=== PATIENT | female | born 1960 | race Caucasian/White ===

== ENCOUNTER → 2021-02-03 | Outpatient (CLI) | payer OTHER ==
--- NOTE | 2021-02-03 11:01 | XR ---
EXAMINATION TYPE: XR chest 2V DATE OF EXAM: 02/03/2021 COMPARISON: NONE HISTORY: Shortness of breath TECHNIQUE: Frontal and lateral views of the chest are obtained. FINDINGS: Scattered senescent parenchymal changes noted. Hyperinflation compatible with COPD. No evidence for infiltrate. Discoid atelectasis at the right lung base. The lungs are otherwise clear . Heart size is stable. Mediastinal structures are stable and grossly unremarkable. No evidence for hilar prominence. Degenerative changes dorsal spine. IMPRESSION: 1. Discoid atelectasis at the right lung base.
[2021-02-03 11:36] LABS: Basophils % (A) 1 %; Eosinophils # (A) 0.1 k/uL (0-0.7); Eosinophils % (A) 1 %; HCT 37.8 % (34.0-46.0); HGB 11.9 gm/dL (11.4-16.0); Hypochromasia Slight; Lymphocytes # (A) 1.4 k/uL (1.0-4.8); Lymphocytes % (A) 32 %; MCH 34.3 pg (25.0-35.0); MCHC 31.5 g/dL (31.0-37.0); MCV 108.9 fL (80.0-100.0); Macrocytosis Marked; Mean Platelet Volume 7.3; Monocytes # (A) 0.3 k/uL (0-1.0); Monocytes % (A) 8 %; Neutrophils # (A) 2.4 k/uL (1.3-7.7); Neutrophils % (A) 56 %; Platelet Count 386 k/uL (150-450); RBC 3.48 m/uL (3.80-5.40); WBC 4.3 k/uL (3.8-10.6)
[2021-02-03 11:39] LABS: Calcium 9.7 mg/dL (8.4-10.2); Potassium 4.6 mmol/L (3.5-5.1)
== END | disposition home or self-care (01) ==
LOC: LABPAT 10:04
PROVIDERS: ATTEND Orthopaedic Surgery Hand Surgery
DX: Z01.818 Encounter for other preprocedural examination (principal); I45.6 Pre-excitation syndrome; J98.11 Atelectasis; R94.31 Abnormal electrocardiogram [ECG] [EKG]
CPT/HCPCS: 36415; 71046; 80048; 85025; 93005

== ENCOUNTER 2021-02-05 05:52 | Day surgery (SDC) | payer OTHER ==
--- NOTE | 2021-02-04 08:31 | P.HPOR ---
History of Present Illness H&P Date: 02/04/21 Chief Complaint: Left intra-articular distal radius fracture Subjective: This is a 60 year old female that presents today for initial evaluation regarding a left injury that occurred on 01/18/21. She states she tripped over a piece of molding in her house and fell onto an outstretched hand. She was seen at [facility] 3 days after her injury due to continue wrist pain and was placed in a splint. 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 She has a history of rheumatoid arthritis and is actively taking sulfasalazine, cyclobenzapine, and gabapentin. Physical Examination: LUE: AIN/PIN/Radial/Ulnar/Median motor intact. Radial/Ulnar/Median SILT. 2+/4 Radial/Ulnar pulses palpated. 5/5 APB, 5/5 FDI. Negative Finkelsteins, negative CMC grind, negative Durkan's compression. TTP over distal radius with swelling and slight visual deformity of wrist. EPL intact. Imaging: X-Rays of the left wrist demonstrate an intra-articular distal radius fracture with comminution, 25 degrees of dorsal angulation and radial shortening present. Nondisplaced ulnar styloid fracture present. Impression: 1.) Left intra-articular distal radius fracture, displaced. 2.) Left non displaced ulnar styloid fracture. Plan: Diagnosis and treatment options were discussed with the patient. Due to the amount of displacement, patients age and activity demands I recommend surgical intervention with ORIF. She was agreeable with this plan of action. Risks and benefits of surgery including bleeding, infection, damage to surrounding tissue, need for further surgery were discussed and the patient wished to go forward with surgery. She will obtain pre-op clearance prior to surgery and surgery will be scheduled in the near future -Andres Labm DO Orthopedic Hand/Upper Extremity Surgeon Physical Examination Osteopathic Statement: *. No significant issues noted on an osteopathic structural exam other than those noted in the History and Physical/Consult.
[2021-02-04 11:24] VITALS: BMI 19.8
[2021-02-05] MEDS ORDERED: LIDOCAINE 1% (10MG/ML) FOR IV START INTRADERMA PRN (06:00)
[2021-02-05] MEDS ORDERED: MIDAZOLAM 2 MG/2 ML VIAL IV PRN (06:00)
[2021-02-05] MEDS ORDERED: LACTATED RINGERS 1,000 ML IV SCH (06:00)
[2021-02-05] MEDS ORDERED: DEXAMETHASONE SOD PHOSPHATE 4 MG/ML 1 ML VIAL IV ONE (06:00)
[2021-02-05] MEDS ORDERED: MIDAZOLAM 2 MG/2 ML VIAL IV ONE (06:49)
[2021-02-05] MEDS ORDERED: HYDROmorphone 0.5 MG/0.5 ML SYRINGE IVP PRN (07:00)
[2021-02-05] MEDS ORDERED: ONDANSETRON 4 MG/2 ML VIAL IVP PRN (07:00)
[2021-02-05] MEDS ORDERED: fentaNYL (PF) 50 MCG/ML 2 ML AMP ONE (07:21)
[2021-02-05] MEDS ORDERED: LIDOCAINE 1% INJ 10MG/ML (20 ML MDV) ONE (07:21)
[2021-02-05] MEDS ORDERED: PROPOFOL 10 MG/ML 20 ML VIAL IV ONE (07:21)
[2021-02-05] MEDS ORDERED: ROPIVACAINE 5 MG/ML 30 ML VIAL ONE (07:21)
--- NOTE | 2021-02-05 08:55 | P.ANPRN ---
Procedure Note - Anesthesia - Nerve Block Performed Left Supraclavicular Single Time Out Performed: Yes ([id number]) Date of Procedure: 02/05/21 Procedure Start Time: 06:50 Procedure Stop Time: 06:55 Location of Patient: PreOp Indication: Acute Post-Operative Pain, Analgesia, Dx/Pain Location, Requested by Surgeon Sedation Type: Sedate with meaningful contact maintained Preparation: Sterile Prep, Sterile Dressing Position: Sitting Catheter: None Needle Types: Pajunk Needle Gauge: 21 Ultrasound used to visualize needle placement: Yes Ultrasound used to observe medication spread: Yes Injectate: 0.5% Ropivacaine (see comment for volume) (20ml) Blood Aspirated: No Pain Paresthesia on Injection Noted: No Resistance on Injection: Normal Image Stored and Saved: Yes Events: Uneventful and Well Tolerated
[2021-02-05] MEDS ORDERED: LACTATED RINGERS 1,000 ML IV ONE (09:01)
[2021-02-05 09:31] VITALS: TEMP 97
[2021-02-05 09:33] VITALS: RESP 16
[2021-02-05 10:24] VITALS: BP 143/87; PULSE 88
--- NOTE | 2021-02-05 19:23 | P.OP ---
Date of Procedure: 02/05/21 Preoperative Diagnosis: Left intra-articular distal radius fracture. Postoperative Diagnosis: Left intra-articular distal radius fracture Procedure(s) Performed: Open reduction internal fixation of left intra-articular distal radius fracture, 3 parts. Anesthesia: JOSE DUMONT, regional Surgeon: Andres Lamb Fluid Designer #1: Eric Bauer Estimated Blood Loss (ml): 10 Pathology: none sent Condition: stable Disposition: PACU Operative Findings: This is a 60 year old female who sustained a displaced intra-articular distal radius fracture and presents today for open reduction internal fixation of their left distal radius fracture . Risks and benefits of surgery were discussed with the patient including bleeding, damage to surrounding tissue, infection, need for further surgery as well as risks of anesthesia including pulmonary embolism and even and the patient wished to proceed with surgical intervention. The patients was seen in the pre-operative area by myself. Consent and H&P were completed and updated. The correct extremity was marked in the pre-operative area by myself and all other questions were answered. Operative Narrative: The patient was brought to the operating room by the department of anesthesia. They remained on the portable stretcher and a rolling hand table was brought to the side of the operative extremity. Pre-operative time out was performed indicating the correct patient, procedure and laterality. All in the room agreed. Pre-operative antibiotics were given prior to skin incision. The patient was then drifted off to sleep by the department of anesthesia. A nonsterile tourniquet was then applied to the operative extremity and the left upper extremity was then prepped and draped in normal sterile fashion. The operative extremity was the exsanguinated with an esmarch bandage and the tourniquet was inflated to 250mmHg. A longitudinal incision centered over the FCR tendon was made with a 15-blade scalpel. Blunt dissection was taken down to the FCR tendon sheath using Bovie cautery for meticulous hemostasis. The FCR sheath was opened with tenotomy scissors. The floor of the FCR sheath was then incised with a 15-blade scalpel and the FPL tendon and muscle belly was swept bluntly in an ulnar direction to reveal the pronator quadratus. Pronator quadratus was sharply incised with a 15-blade scalpel along the radial border of the distal radius, coming across transversely parallel to the joint at the level of the watershed line, radial artery was identified and protected. Periosteal elevator was then used to elevate the pronator quadratus off the distal radius from a radial to ulnar fashion. A [place] elevator was used to lever the distal piece back into place and free up the fractured fragments. A narrow width Johnny/biomet crosslock DVR plate was chosen to fit the patients anatomy best. This was placed on the distal radius under direct visualization and the K- wire was placed in the shaft k-wire hole. The fracture was then reduced to the plate distally and a k-wire was placed in the ulnar most k-wire hole in the proximal row. Fluoroscopy was then utilized to confirm correct placement of plate in the radial/ulnar plane and distal k-wire placement was confirmed to be proximal to the subchondral bone on 20 degree elevated lateral view confirming extra-articular screw placement. Anabaptist of radial height, inclination and volar tilt was achieved. The oblong hole was drilled and filled with a cortical screw. The proximal row and radial styloid screw hole was then drilled and filled from ulnar to radial with locking screws. Distal row was then drilled and filled with locking smooth pegs. Attention was then brought to the proximal shaft screws. Proximal crosslocking shaft screws were drilled with a nonlocking screws. The wrist joint was the ran ged and full smooth flexion/extension with no crepitus appreciated. Final imaging was taken confirming extra-articular placement of distal screws at DRUJ and radiocarpal joint. The wound was then irrigated. Subcutaneous closure was performed with 4-0 vicryl followed by skin closure with 4-0 nylon suture. Sterile dressing consisting of adaptic,, 4x4s, and a volar plaster splint was applied. Tourniquet was let down and the hand had immediate perfusion. The patient was then woken by the department of anesthesia and transferred to PACU in stable condition. The patient was then woken by the department of anesthesia and transferred to PACU in stable condition. Andres Lamb D.O. Orthopedic Hand/Upper Extremity Surgeon
== END 2021-02-05 10:42 | disposition home or self-care (01) ==
LOC: OR 05:52
PROVIDERS: ATTEND Orthopaedic Surgery Hand Surgery
DX: S52.572A Other intraarticular fracture of lower end of left radius, initial encounter for closed fracture (principal); W01.10XA Fall on same level from slipping, tripping and stumbling with subsequent striking against unspecified object, initial encounter; F17.210 Nicotine dependence, cigarettes, uncomplicated; M06.9 Rheumatoid arthritis, unspecified; K74.60 Unspecified cirrhosis of liver; Z96.652 Presence of left artificial knee joint; Z98.890 Other specified postprocedural states; Z79.899 Other long term (current) drug therapy
CPT/HCPCS: 25608; J2250; J1100; J2405; J0690; J2001; J3010; J2795; J2704

== ENCOUNTER 2024-03-03 01:15 | Inpatient (IN) | payer OTHER ==
[2024-03-03] MEDS: NOREPINEPHRINE 4 MG in SODIUM CHLORIDE 0.9% 250 ML IV ONE (01:15)
[2024-03-03] MEDS: SODIUM BICARB 8.4% 50 ML SYR (1 MEQ/ML) IV STA ×2 (01:17)
--- NOTE | 2024-03-03 01:28 | ED ---
General Adult HPI - General Chief complaint: Cardiac Arrest/CPR Stated complaint: Cardiac Arrest Time Seen by Provider: 03/03/24 01:15 Source: EMS Mode of arrival: EMS - History of Present Illness Initial comments: 63-year-old female with reported medical history of alcohol abuse who presents to the emergency department as a cardiac arrest. EMS states that they were called to scene with an unresponsive female. They arrived and found police performing CPR. The patient had been down for approximately 20 minutes. Unknown how long the patient was down before compressions were started. Paramedics took over. Original rhythm was PEA. They administered 1 epinephrine and intubated the patient with a 7 Tamazight ET tube. They did have ROSC. Estimated total downtime is 25 minutes. Patient did receive 2 push doses of epi by EMS. No family on scene to provide any history. Sibling listed on chart was contacted and states the patient is an alcoholic - Related Data Home Medications Medication Instructions Recorded Confirmed Acetaminophen [Tylenol Arthritis] 650 mg PO DAILY 02/04/21 02/05/21 Aspirin/Caffeine [Anacin 400-32 mg 1 - 8 each PO DAILY PRN 02/04/21 02/05/21 Tablet] Calcium/Magnesium/Zinc 1 each PO DAILY 02/04/21 02/05/21 [Iajvaqq-Bgbrfpuyj-Lqxt Tablet] Cholecalciferol [Vitamin D3 (25 25 mcg PO DAILY 02/04/21 02/05/21 Mcg = 1000 Iu)] Cyanocobalamin (Vitamin B-12) 1,000 mcg PO DAILY 02/04/21 02/05/21 [Vitamin B-12] Cyclobenzaprine [Flexeril] 10 mg PO DAILY 02/04/21 02/05/21 Furosemide [Lasix] 20 mg PO DAILY 02/04/21 02/05/21 Gabapentin [Neurontin] 300 mg PO TID 02/04/21 02/05/21 Lactobacillus Acidophilus 2 each PO DAILY 02/04/21 02/05/21 [Acidophilus Probiotic] Multivit-Min/Iron/Folic/Lutein 1 each PO DAILY 02/04/21 02/05/21 [Centrum Silver Women Tablet] Potassium Gluconate [Potassium 99 mg PO DAILY 02/04/21 02/05/21 Gluconate ER] sulfaSALAzine [Azulfidine] 500 mg PO BID 02/04/21 02/05/21 Previous Rx's Medication Instructions Recorded HYDROcodone/APAP 5-325MG [[place] 2 tab PO Q6HR PRN 3 Days #24 tab 02/05/21 5-325] Allergies Allergy/AdvReac Type Severity Reaction Status Date / Time No Known Allergies Allergy Verified 03/03/24 01:21 Review of Systems ROS Statement: Those systems with pertinent positive or pertinent negative responses have been documented in the HPI. ROS Other: All systems not noted in ROS Statement are negative. Past Medical History Additional Past Medical History / Comment(s): UTO Additional Past Surgical History / Comment(s): UTO General Exam Limitations: altered mental status General appearance: obtunded Head exam: Present: atraumatic, normocephalic, normal inspection Eye exam: Present: other (8 ) Course Vital Signs 03/03/24 03/03/24 03/03/24 01:17 01:24 01:30 Temperature Pulse Rate 91 89 87 Pulse Rate [ Commissary Officer ] Respiratory 20 22 22 Rate Blood Pressure 61/40 59/39 67/41 Blood Pressure [Left Arm] O2 Sat by Pulse 100 100 100 Oximetry Fraction of Inspired Oxygen (FIO2) 03/03/24 03/03/24 03/03/24 01:32 01:35 01:40 Temperature Pulse Rate 96 93 Pulse Rate [ Commissary Officer ] Respiratory 22 22 Rate Blood Pressure 103/61 96/59 Blood Pressure [Left Arm] O2 Sat by Pulse 100 100 Oximetry Fraction of 100 Inspired Oxygen (FIO2) 03/03/24 03/03/24 03/03/24 01:45 01:50 01:55 Temperature Pulse Rate 91 89 87 Pulse Rate [ Commissary Officer ] Respiratory 22 22 22 Rate Blood Pressure 97/61 99/63 103/64 Blood Pressure [Left Arm] O2 Sat by Pulse 100 100 100 Oximetry Fraction of Inspired Oxygen (FIO2) 03/03/24 03/03/24 03/03/24 02:00 02:05 02:10 Temperature 97.2 F L Pulse Rate 91 83 Pulse Rate [ Commissary Officer ] Respiratory 22 22 Rate Blood Pressure 102/67 108/70 Blood Pressure [Left Arm] O2 Sat by Pulse 100 100 Oximetry Fraction of 50 Inspired Oxygen (FIO2) 03/03/24 03/03/24 03/03/24 02:15 02:25 02:30 Temperature Pulse Rate 82 80 77 Pulse Rate [ Commissary Officer ] Respiratory 22 22 22 Rate Blood Pressure 116/73 117/75 106/64 Blood Pressure [Left Arm] O2 Sat by Pulse 100 100 100 Oximetry Fraction of Inspired Oxygen (FIO2) 03/03/24 03/03/24 03/03/24 02:45 02:50 02:55 Temperature Pulse Rate 78 80 79 Pulse Rate [ Commissary Officer ] Respiratory 22 22 22 Rate Blood Pressure 130/76 129/80 135/80 Blood Pressure [Left Arm] O2 Sat by Pulse 100 100 100 Oximetry Fraction of Inspired Oxygen (FIO2) 03/03/24 03/03/24 03/03/24 03:10 03:37 03:51 Temperature Pulse Rate 81 81 Pulse Rate [ Commissary Officer ] Respiratory 20 22 20 Rate Blood Pressure 139/83 153/85 Blood Pressure [Left Arm] O2 Sat by Pulse 100 100 Oximetry Fraction of Inspired Oxygen (FIO2) 03/03/24 03:52 Temperature 89 F L Pulse Rate Pulse Rate [ 81 Commissary Officer ] Respiratory 22 Rate Blood Pressure Blood Pressure 135/81 [Left Arm] O2 Sat by Pulse 100 Oximetry Fraction of 50 Inspired Oxygen (FIO2) Procedures - ABG Interpretation Ph: 7.0 PCO2: 40 PO2: 488 Bicarbonate: 11 - Central Line Placement Right IJ Consent Obtained: emergent situation Medical Decision Making - Medical Decision Making Was pt. sent in by a medical professional or institution (, PA, BOTTOM SPRAYER, urgent care, hospital, or custodial...) When possible be specific @ -[No] Did you speak to anyone other than the patient for history (EMS, parent, family, police, friend...)? What history was obtained from this source @ -[No] Did you review nursing and triage notes (agree or disagree)? Why? @ -[I reviewed and agree with nursing and triage notes] Were old charts reviewed (outside hosp., previous admission, EMS record, old EKG, old radiological studies, urgent care reports/EKG's, custodial records)? Report findings @ -[No old charts were reviewed] Differential Diagnosis (chest pain, altered mental status, abdominal pain women, abdominal pain men, vaginal bleeding, weakness, fever, dyspnea, syncope, headache, dizziness, GI bleed, back pain, seizure, CVA, palpatations, mental health, musculoskeletal)? @ -[not applicable] EKG interpreted by me (3pts min.). @ -Yes and demonstrates sinus rhythm with rate of 95. MS interval 195. QRS 87. QTc of 461. No acute ST segment elevations or depressions X-rays interpreted by me (1pt min.). @ -[None done] CT interpreted by me (1pt min.). @ -[None done] U/S interpreted by me (1pt. min.). @ -[None done] What testing was considered but not performed or refused? (CT, X-rays, U/S, labs)? Why? @ -[None] What meds were considered but not given or refused? Why? @ -[None] Did you discuss the management of the patient with other professionals (professionals i.e. DrMando, PA, BOTTOM SPRAYER, lab, RT, psych nurse, outreach and education social worker, dependency director, teacher, welfare officer, casework supervisor)? Give summary @ -[No] Was smoking cessation discussed for >3mins.? @ -[No] Was critical care preformed (if so, how long)? @ -[No] Were there social determinants of health that impacted care today? How? (Homelessness, low income, unemployed, alcoholism, drug addiction, transportation, low edu. Level, literacy, decrease access to med. care, nursing home, rehab)? @ -[No] Was there de-escalation of care discussed even if they declined (Discuss DNR or withdrawal of care, Hospice)? DNR status @ -[No] What co-morbidities impacted this encounter? (DM, HTN, Smoking, COPD, CAD, Cancer, CVA, ARF, Chemo, Hep., AIDS, mental health diagnosis, sleep apnea, morbid obesity)? @ -[None] Was patient admitted / discharged? Hospital course, mention meds given and route, prescriptions, significant lab abnormalities, going to OR and other pertinent info. @ -[hospital course] Undiagnosed new problem with uncertain prognosis? @ -[No] Drug Therapy requiring intensive monitoring for toxicity (Heparin, Nitro, Insulin, Cardizem)? @ -[No] Were any procedures done? @ -[No] Diagnosis/symptom? @ -[default] Acute, or Chronic, or Acute on Chronic? @ -[default] Uncomplicated (without systemic symptoms) or Complicated (systemic symptoms)? @ -[default] Side effects of treatment? @ -[No] Exacerbation, Progression, or Severe Exacerbation? @ -[No] Poses a threat to life or bodily function? How? (Chest pain, USA, AR, pneumonia, PE, COPD, DKA, ARF, appy, cholecystitis, CVA, Diverticulitis, Homicidal, Suicidal, threat to staff... and all critical care pts) @ -[No] - Lab Data Result diagrams: 03/03/24:03/03/24: Lab Results 03/03/24 03/03/24 03/03/24 Range/Units :28 02: 01: WBC 5.5 (3.8-10.6) k/uL RBC 2.98 L (3.80-5.40) m/uL Hgb 9.8 L (11.4-16.0) gm/dL Hct 33.3 L (34.0-46.0) % MCV 111.5 H (80.0-100.0) fL MCH 32.9 (25.0-35.0) pg MCHC 29.5 L (31.0-37.0) g/dL RDW 14.0 (11.5-15.5) % Plt Count 251 (150-450) k/uL MPV 8.2 Neutrophils % 47 % Lymphocytes % 46 % Monocytes % 2 % Eosinophils % 2 % Basophils % 1 % Neutrophils # 2.6 (1.3-7.7) k/uL Lymphocytes # 2.5 (1.0-4.8) k/uL Monocytes # 0.1 (0-1.0) k/uL Eosinophils # 0.1 (0-0.7) k/uL Basophils # 0.0 (0-0.2) k/uL Hypochromasia Marked Macrocytosis Marked A PT 11.8 (10.0-12.5) sec INR 1.1 (<1.2) APTT 38.1 H (22.0-30.0) sec Sample Site ABG pH (7.35-7.45) ABG pCO2 (35-45) mmHg ABG pO2 (83-108) mmHg ABG HCO3 (21-25) mmol/L ABG Total CO2 (19-24) mmol/L ABG O2 Saturation (94-97) % ABG Base Excess mmol/L Gregg Test Hemoglobin (11.4-16.0) gm/dL FiO2 % Sodium (137-145) mmol/L Potassium (3.5-5.1) mmol/L Chloride (98-107) mmol/L Carbon Dioxide (22-30) mmol/L Anion Gap mmol/L BUN (7-17) mg/dL Creatinine (0.52-1.04) mg/dL Est GFR (CKD-EPI)AfAm (>60 ml/min/1.73 sqM) Est GFR (CKD-EPI)NonAf (>60 ml/min/1.73 sqM) Glucose (74-99) mg/dL POC Glucose (mg/dL) 177 H (70-110) mg/dL POC Glu Photo Engraver ID Espinoza Deras Lactic Ac Sepsis Rflx Plasma Lactic Acid Zane (0.7-2.0) mmol/L Calcium (8.4-10.2) mg/dL Total Bilirubin (0.2-1.3) mg/dL AST (14-36) U/L ALT (4-34) U/L Alkaline Phosphatase (38-126) U/L Troponin I (0.000-0.034) ng/mL Total Protein (6.3-8.2) g/dL Albumin (3.5-5.0) g/dL Urine Color Urine Appearance (Clear) Urine pH (5.0-8.0) Ur Specific Clayton (1.001-1.035) Urine Protein (Negative) Urine Glucose (UA) (Negative) Urine Ketones (Negative) Urine Blood (Negative) Urine Nitrite (Negative) Urine Bilirubin (Negative) Urine Urobilinogen (<2.0) mg/dL Ur Leukocyte Esterase (Negative) Urine Opiates Screen (NotDetected) Ur Oxycodone Screen (NotDetected) Urine Methadone Screen (NotDetected) Ur Barbiturates Screen (NotDetected) U Tricyclic Antidepress (NotDetected) Ur Phencyclidine Scrn (NotDetected) Ur Amphetamines Screen (NotDetected) U Methamphetamines Scrn (NotDetected) U Benzodiazepines Scrn (NotDetected) Urine Cocaine Screen (NotDetected) U Marijuana (THC) Screen (NotDetected) Serum Alcohol mg/dL 03/03/24 03/03/24 03/03/24 Range/Units 01:28 01:28 01:28 WBC (3.8-10.6) k/uL RBC (3.80-5.40) m/uL Hgb (11.4-16.0) gm/dL Hct (34.0-46.0) % MCV (80.0-100.0) fL MCH (25.0-35.0) pg MCHC (31.0-37.0) g/dL RDW (11.5-15.5) % Plt Count (150-450) k/uL MPV Neutrophils % % Lymphocytes % % Monocytes % % Eosinophils % % Basophils % % Neutrophils # (1.3-7.7) k/uL Lymphocytes # (1.0-4.8) k/uL Monocytes # (0-1.0) k/uL Eosinophils # (0-0.7) k/uL Basophils # (0-0.2) k/uL Hypochromasia Macrocytosis PT (10.0-12.5) sec INR (<1.2) APTT (22.0-30.0) sec Sample Site ABG pH (7.35-7.45) ABG pCO2 (35-45) mmHg ABG pO2 (83-108) mmHg ABG HCO3 (21-25) mmol/L ABG Total CO2 (19-24) mmol/L ABG O2 Saturation (94-97) % ABG Base Excess mmol/L Gregg Test Hemoglobin (11.4-16.0) gm/dL FiO2 % Sodium 140 (137-145) mmol/L Potassium 4.3 (3.5-5.1) mmol/L Chloride 109 H (98-107) mmol/L Carbon Dioxide 6 L* (22-30) mmol/L Anion Gap 25 mmol/L BUN 8 (7-17) mg/dL Creatinine 0.96 (0.52-1.04) mg/dL Est GFR (CKD-EPI)AfAm 73 (>60 ml/min/1.73 sqM) Est GFR (CKD-EPI)NonAf 63 (>60 ml/min/1.73 sqM) Glucose 157 H (74-99) mg/dL POC Glucose (mg/dL) (70-110) mg/dL POC Glu Photo Engraver ID Lactic Ac Sepsis Rflx Plasma Lactic Acid Zane 13.2 H* (0.7-2.0) mmol/L Calcium 8.2 L (8.4-10.2) mg/dL Total Bilirubin 0.8 (0.2-1.3) mg/dL AST 197 H (14-36) U/L ALT 48 H (4-34) U/L Alkaline Phosphatase 75 (38-126) U/L Troponin I <0.012 (0.000-0.034) ng/mL Total Protein 6.9 (6.3-8.2) g/dL Albumin 3.3 L (3.5-5.0) g/dL Urine Color Urine Appearance (Clear) Urine pH (5.0-8.0) Ur Specific [place] (1.001-1.035) Urine Protein (Negative) Urine Glucose (UA) (Negative) Urine Ketones (Negative) Urine Blood (Negative) Urine Nitrite (Negative) Urine Bilirubin (Negative) Urine Urobilinogen (<2.0) mg/dL Ur Leukocyte Esterase (Negative) Urine Opiates Screen (NotDetected) Ur Oxycodone Screen (NotDetected) Urine Methadone Screen (NotDetected) Ur Barbiturates Screen (NotDetected) U Tricyclic Antidepress (NotDetected) Ur Phencyclidine Scrn (NotDetected) Ur Amphetamines Screen (NotDetected) U Methamphetamines Scrn (NotDetected) U Benzodiazepines Scrn (NotDetected) Urine Cocaine Screen (NotDetected) U Marijuana (THC) Screen (NotDetected) Serum Alcohol 351 H* mg/dL 03/03/24 03/03/24 03/03/24 Range/Units 01:41 02:00 02:51 WBC (3.8-10.6) k/uL RBC (3.80-5.40) m/uL Hgb (11.4-16.0) gm/dL Hct (34.0-46.0) % MCV (80.0-100.0) fL MCH (25.0-35.0) pg MCHC (31.0-37.0) g/dL RDW (11.5-15.5) % Plt Count (150-450) k/uL MPV Neutrophils % % Lymphocytes % % Monocytes % % Eosinophils % % Basophils % % Neutrophils # (1.3-7.7) k/uL Lymphocytes # (1.0-4.8) k/uL Monocytes # (0-1.0) k/uL Eosinophils # (0-0.7) k/uL Basophils # (0-0.2) k/uL Hypochromasia Macrocytosis PT (10.0-12.5) sec INR (<1.2) APTT (22.0-30.0) sec Sample Site lbrac ABG pH 7.06 L* (7.35-7.45) ABG pCO2 40 (35-45) mmHg ABG pO2 >420 H (83-108) mmHg ABG HCO3 11 L (21-25) mmol/L ABG Total CO2 13 L (19-24) mmol/L ABG O2 Saturation 100.0 H (94-97) % ABG Base Excess -17.7 mmol/L Gregg Test Yes Hemoglobin 8.4 L (11.4-16.0) gm/dL FiO2 100 % Sodium (137-145) mmol/L Potassium (3.5-5.1) mmol/L Chloride (98-107) mmol/L Carbon Dioxide (22-30) mmol/L Anion Gap mmol/L BUN (7-17) mg/dL Creatinine (0.52-1.04) mg/dL Est GFR (CKD-EPI)AfAm (>60 ml/min/1.73 sqM) Est GFR (CKD-EPI)NonAf (>60 ml/min/1.73 sqM) Glucose (74-99) mg/dL POC Glucose (mg/dL) (70-110) mg/dL POC Glu Photo Engraver ID Lactic Ac Sepsis Rflx Y Plasma Lactic Acid Zane (0.7-2.0) mmol/L Calcium (8.4-10.2) mg/dL Total Bilirubin (0.2-1.3) mg/dL AST (14-36) U/L ALT (4-34) U/L Alkaline Phosphatase (38-126) U/L Troponin I (0.000-0.034) ng/mL Total Protein (6.3-8.2) g/dL Albumin (3.5-5.0) g/dL Urine Color Colorless Urine Appearance Clear (Clear) Urine pH 6.5 (5.0-8.0) Ur Specific [place] 1.004 (1.001-1.035) Urine Protein Negative (Negative) Urine Glucose (UA) Negative (Negative) Urine Ketones Negative (Negative) Urine Blood Negative (Negative) Urine Nitrite Negative (Negative) Urine Bilirubin Negative (Negative) Urine Urobilinogen <2.0 (<2.0) mg/dL Ur Leukocyte Esterase Negative (Negative) Urine Opiates Screen Not Detected (NotDetected) Ur Oxycodone Screen Not Detected (NotDetected) Urine Methadone Screen Not Detected (NotDetected) Ur Barbiturates Screen Not Detected (NotDetected) U Tricyclic Antidepress Not Detected (NotDetected) Ur Phencyclidine Scrn Not Detected (NotDetected) Ur Amphetamines Screen Not Detected (NotDetected) U Methamphetamines Scrn Not Detected (NotDetected) U Benzodiazepines Scrn Not Detected (NotDetected) Urine Cocaine Screen Not Detected (NotDetected) U Marijuana (THC) Screen Not Detected (NotDetected) Serum Alcohol mg/dL Disposition Clinical Impression: Cardiac arrest, Hypotension, Alcohol intoxication Disposition: ADMITTED IP TO THIS [facility] Condition: Critical Is patient prescribed a controlled substance at d/c from ED?: No Time of Disposition: 02:46 Decision to Admit Reason: Admit from EC Decision Date: 03/03/24 Decision Time: 02:46
[2024-03-03 01:32] LABS: Glucose,Whole Blood 177 mg/dL (70-110)
[2024-03-03] MEDS: SODIUM CHLORIDE 0.9% 1,000 ML IV ONE ×2 (01:36)
[2024-03-03 02:02] LABS: ABG Base Excess -17.7 mmol/L; ABG HCO3 11 mmol/L (21-25); ABG PCO2 40 mmHg (35-45); ABG TCO2 13 mmol/L (19-24); Allen Test Performed? Yes
--- NOTE | 2024-03-03 02:11 | XR ---
EXAM: XR Chest, 1 View CLINICAL HISTORY: ITS.REASON XR Reason: CARDIAC ARREST TECHNIQUE: Frontal view of the chest. COMPARISON: No relevant prior studies available. FINDINGS: Lungs: Unremarkable. No consolidation. Pleural space: Trace LEFT pleural effusion. No pneumothorax. Heart: Unremarkable. No cardiomegaly. Mediastinum: Unremarkable. Normal mediastinal contour. Bones/joints: Unremarkable. No acute fracture. Old fracture of the LEFT seventh rib. Tubes, lines and devices: Endotracheal tube terminates 4.7 cm above the elba. Enteric feeding tube terminates below the diaphragm. RIGHT IJ catheter terminates in the SVC. IMPRESSION: Trace LEFT pleural effusion. Endotracheal tube terminates 4.7 cm above the elba. Enteric feeding tube terminates below the diaphragm. RIGHT IJ catheter terminates in the SVC.
[2024-03-03 02:26] LABS: Basophils % (A) 1 %; Eosinophils # (A) 0.1 k/uL (0-0.7); Eosinophils % (A) 2 %; HCT 33.3 % (34.0-46.0); HGB 9.8 gm/dL (11.4-16.0); Hypochromasia Marked; Lymphocytes # (A) 2.5 k/uL (1.0-4.8); Lymphocytes % (A) 46 %; MCH 32.9 pg (25.0-35.0); MCHC 29.5 g/dL (31.0-37.0); MCV 111.5 fL (80.0-100.0); Macrocytosis Marked; Mean Platelet Volume 8.2; Monocytes # (A) 0.1 k/uL (0-1.0); Monocytes % (A) 2 %; Neutrophils # (A) 2.6 k/uL (1.3-7.7); Neutrophils % (A) 47 %; Platelet Count 251 k/uL (150-450); RBC 2.98 m/uL (3.80-5.40); WBC 5.5 k/uL (3.8-10.6)
[2024-03-03 02:27] LABS: ABG PH 7.06 (7.35-7.45); ABG PO2 >420 mmHg (83-108)
[2024-03-03 02:40] LABS: ALT 48 U/L (4-34); African American GFR (CKD) 73 (>60 ml/min/1.73 sqM); Anion Gap 25 mmol/L; Blood Urea Nitrogen 8 mg/dL (7-17); Calcium 8.2 mg/dL (8.4-10.2); Chloride 109 mmol/L (98-107); Glucose 157 mg/dL (74-99); Non-African American GFR(CKD) 63 (>60 ml/min/1.73 sqM); Sodium 140 mmol/L (137-145); Total Bilirubin 0.8 mg/dL (0.2-1.3)
--- NOTE | 2024-03-03 02:47 | XR ---
EXAM: XR Chest, 1 View CLINICAL HISTORY: ITS.REASON XR Reason: placement of central line TECHNIQUE: Frontal view of the chest. COMPARISON: No relevant prior studies available. FINDINGS: Lungs: Unremarkable. No consolidation. Pleural space: Small LEFT pleural effusion. No pneumothorax. Heart: Unremarkable. No cardiomegaly. Mediastinum: Unremarkable. Normal mediastinal contour. Bones/joints: Old fracture of the posterior LEFT seventh rib. Tubes, lines and devices: Feeding tube terminates in the stomach. RIGHT IJ catheter terminates in the SVC. No tracheal tube terminates 4.7 cm above the elba. IMPRESSION: Small LEFT pleural effusion. Tubes and lines, as above.
[2024-03-03 02:48] LABS: Appearance,Urine Clear (Clear); Bilirubin,Urine Negative (Negative); Blood,Urine Negative (Negative); Color,Urine Colorless; Glucose,Urine (UA) Negative (Negative); Ketones,Urine Negative (Negative); Leukocyte Esterase,Urine Negative (Negative); Nitrite,Urine Negative (Negative); PH, Urine 6.5 (5.0-8.0); Protein,Urine Negative (Negative); Specific Gravity,Urine 1.004 (1.001-1.035); Urobilinogen,Urine <2.0 mg/dL (<2.0)
[2024-03-03 02:50] LABS: Carbon Dioxide 6 mmol/L (22-30)
[2024-03-03 02:51] LABS: AST 197 U/L (14-36); Albumin 3.3 g/dL (3.5-5.0); Alkaline Phosphatase 75 U/L (38-126); Potassium 4.3 mmol/L (3.5-5.1); Total Protein 6.9 g/dL (6.3-8.2)
[2024-03-03 02:52] LABS: Alcohol 351 mg/dL
[2024-03-03] MEDS ORDERED: NALOXONE 0.4 MG/ML 1 ML VIAL IV PRN (02:59)
[2024-03-03 03:04] LABS: Amphetamine Screen,Urine Not Detected (NotDetected); Barbiturate Screen,Urine Not Detected (NotDetected); Benzodiazepines Screen,Urine Not Detected (NotDetected); Cocaine Screen,Urine Not Detected (NotDetected); Methadone Screen, Urine Not Detected (NotDetected); Opiate Screen,Urine Not Detected (NotDetected); Oxycodone Screen, Urine Not Detected (NotDetected); Phencyclidine Screen,Urine Not Detected (NotDetected); Tricyclic Antidepressant,Urine Not Detected (NotDetected); Urn Cannabinoid Scrn Not Detected (NotDetected)
[2024-03-03 03:08] LABS: INR 1.1 (<1.2); Partial Thromboplastin Time 38.1 sec (22.0-30.0); Prothrombin Time 11.8 sec (10.0-12.5)
--- NOTE | 2024-03-03 03:17 | CT ---
EXAM: CT Head Without Intravenous Contrast CLINICAL HISTORY: Altered mental status TECHNIQUE: Axial computed tomography images of the head/brain without intravenous contrast. CTDI is 49.2 mGy and DLP is 1096.4 mGy-cm. This CT exam was performed using one or more of the following dose reduction techniques: automated exposure control, adjustment of the mA and/or kV according to patient size, and/or use of iterative reconstruction technique. Coronal and sagittal reformatted images were created and reviewed. 327 images COMPARISON: No relevant prior studies available. FINDINGS: Brain: Age-related generalized brain volume loss and chronic small vessel ischemic changes. Small encephalomalacia of left parietal lobe and bilateral occipital lobes. No hemorrhage. Ventricles: Unremarkable. No ventriculomegaly. Bones/joints: No acute findings. Soft tissues: Unremarkable. Sinuses: Unremarkable as visualized. No acute sinusitis. Mastoid air cells: Unremarkable as visualized. No mastoid effusion. Tubes, lines and devices: Supporting tubes are noted. IMPRESSION: No acute intracranial findings. If acute intracranial infarct is of concern, MRI may help to further evaluate if patient is a candidate.
[2024-03-03 03:53] LABS: Glucose,Whole Blood 118 mg/dL (70-110)
[2024-03-03] MEDS: DEXTROSE 5% IN WATER 1,000 ML with SODIUM BICARB (1 MEQ/ML) 150 ML IV SCH (04:46)
--- NOTE | 2024-03-03 04:56 | P.HPIM ---
History of Present Illness H&P Date: 03/03/24 Patient is a 63-year-old female apparently with alcohol abuse and polysubstance abuse is brought to the emergency department via EMS for cardiac arrest. Patient is mechanically ventilated so history is obtained from the ER note as well as by talking to Dr. Munoz. Apparently patient lives in an apartment with 2 people who called police after she was unresponsive for about 20 minutes before the EMS arrived. Patient was found to be in PEA and was given 1 dose of epinephrine and was intubated. They were able to achieve ROSC. Patient received an additional 2 doses of epinephrine while in transit to ED. Patient is currently mechanically ventilated on control assist with settings of respiratory rate of 20, tidal volume 400, FiO2 50 and PEEP of 5. Patient is currently on propofol drip and vasopressors. Initial laboratory evaluation WBC 5.5, hemoglobin 9.8, hematocrit 33.3, MCV 111.5, platelet count 251, PT 11.8, INR 1.1, APTT 38.1,. Blood gas show pH of 7.06, pCO2 40, HCO3 11,. Sodium 140, potassium 4.3, chloride 109, bicarb 6, anion gap 25, BUN 18, creatinine 0.96, EGFR 63, glucose 157, lactic acid 13.2, calcium 8.2, AST 197, ALT 48, albumin 3.3, troponin less than 0.012. Vitals on arrival with a heart rate of 91, respiratory rate 20, blood pressure 61/40, oxygen 100% saturation with mechanical isolation. Urinalysis negative. Urine toxicology is negative Serum alcohol 351 Chest x-ray done in ED interpreted independently shows small left pleural effusion Brain CT done in the ED shows no acute intracranial defects or mass. EKG done in the ED interpreted apparently shows sinus rhythm with occasional ectopic premature complexes Review of systems: Unable to assess Social history: Unable to assess Family History: Unable to assess Physical examination: Vital signs reviewed Gen: Mechanically ventilated on assist control settings HEENT: N/C and A/T, mucous membranes moist, patient has a endotracheal tube. Right IJ line in place. Dilated pupil. CVS: perfusing all extremities well, no pitting edema, Respiratory: Unable to assess patient on mechanical ventilation and has endotracheal tube GI: soft, NTTP, ND, BS+ : no suprapubic tenderness, no CVA tenderness MSK/Derm: no rashes, cyanosis Neuro: Unable to assess Psych: Unable to assess at this time Assessment/Plan: This is a 63-year-old female with a history of alcohol abuse and polysubstance abuse who is brought to the ER for cardiac arrest. Case was discussed with the Emergency Room provider and decision was made to admit the patient for cardiac arrest outside the hospital #Cardiac arrest outside hospital #Alcohol intoxication #Suspected history of polysubstance use Patient is currently intubated and mechanically supported on control assist with settings of respiratory rate of 20, tidal volume 400, FiO2 50 and PEEP of 5. Patient is currently on propofol drip and maintained on vasopressors. Maintain a MAP of more than equal to 65 Continue to wean off on vasopressors Chest x-ray done in ED interpreted independently shows small left pleural effusion Brain CT done in the ER shows no acute intracranial defects or mass. EKG done in the ER interpreted apparently shows sinus rhythm with occasional ectopic premature complexes Urine toxicology is negative Serum alcohol 351 Initiate transfer to the ICU Continue monitor vital signs Strict I's and O's Order TSH, vitamin B12 Order IV thiamine 100 mg IVP daily CBC in a.m. Neurochecks and seizure precautions #High anion gap metabolic acidosis secondary to lactic acidosis and alcohol ketoacidosis Blood gas show pH of 7.06, pCO2 40, HCO3 11 Sodium 140, potassium 4.3, chloride 109, bicarb 6, anion gap 25 Lactic acid 13.2 Patient is status post 2 sodium bicarb infusions in the ED Continue with bicarb drip running at 75 cc/h Repeat ABG in a.m. Recheck lactic acid in a.m. #Hyperglycemia Accu-Cheks and sliding scale insulin Order HbA1c #Alcohol associated transaminitis AST 197, ALT 48 Continue monitor CMP CMP in a.m. #Macrocytic anemia likely in the setting of alcohol abuse Unknown Hb baseline Hemoglobin 9.8, MCV heart 11.5, Check vitamin B12 and RBC folate Reconcile medications once confirmed DVT prophylaxis: Lovenox 40 mg subcu daily GI prophylaxis: IV Protonix 40 mg once daily F: IV normal saline at 75 cc/h E: Replete as needed N: N.p.o. A: Ambulatory at baseline at home The patient is admitted with an anticipated more than than 2 midnight stay for evaluation of cardiac arrest in the setting of alcohol intoxication CODE STATUS: Full code Discussed with: Anticipated discharge place: Pending clinical course Dictation was produced using dragon dictation software. Please excuse any grammatical, word or spelling errors. I have seen and evaluated the patient today. I Discussed the case with the resident and agree with the resident's findings I edited the assessment and plan as necessary as documented in the resident's note. Past Medical History Past Medical History: Rheumatoid Arthritis (RA) Additional Past Medical History / Comment(s): per family hx of ETOH abuse, perscription drug abuse, smoker, fatty liver. History of Any Multi-Drug Resistant Organisms: Unobtainable Past Surgical History: Orthopedic Surgery Additional Past Surgical History / Comment(s): UTO Past Anesthesia/Blood Transfusion Reactions: Unable to Obtain Past Psychological History: Unable to Obtain Smoking Status: Current every day smoker Past Alcohol Use History: Heavy Past Drug Use History: Prescription Drug Abuse Medications and Allergies Home Medications Medication Instructions Recorded Confirmed Type Acetaminophen [Tylenol Arthritis] 650 mg PO DAILY 02/04/21 02/05/21 History Aspirin/Caffeine [Anacin 400-32 mg 1 - 8 each PO DAILY PRN 02/04/21 02/05/21 H istory Tablet] Calcium/Magnesium/Zinc 1 each PO DAILY 02/04/21 02/05/21 History [Zwyqzvc-Chdgfdzyz-Vckr Tablet] Cholecalciferol [Vitamin D3 (25 25 mcg PO DAILY 02/04/21 02/05/21 History Mcg = 1000 Iu)] Cyanocobalamin (Vitamin B-12) 1,000 mcg PO DAILY 02/04/21 02/05/21 History [Vitamin B-12] Cyclobenzaprine [Flexeril] 10 mg PO DAILY 02/04/21 02/05/21 History Furosemide [Lasix] 20 mg PO DAILY 02/04/21 02/05/21 History Gabapentin [Neurontin] 300 mg PO TID 02/04/21 02/05/21 History Lactobacillus Acidophilus 2 each PO DAILY 02/04/21 02/05/21 History [Acidophilus Probiotic] Multivit-Min/Iron/Folic/Lutein 1 each PO DAILY 02/04/21 02/05/21 History [Centrum Silver Women Tablet] Potassium Gluconate [Potassium 99 mg PO DAILY 02/04/21 02/05/21 History Gluconate ER] sulfaSALAzine [Azulfidine] 500 mg PO BID 02/04/21 02/05/21 History HYDROcodone/APAP 5-325MG [[place] 2 tab PO Q6HR PRN 3 Days #24 tab 02/05/21 Rx 5-325] Allergies Allergy/AdvReac Type Severity Reaction Status Date / Time No Known Allergies Allergy Verified 03/03/24 01:21 Physical Exam Vitals: Vital Signs Temp Pulse Pulse Resp BP BP Pulse Ox 03/03/24 03:55 03/03/24 03:52 89 F L 81 22 135/81 100 03/03/24 03:37 81 22 153/85 100 03/03/24 03:10 81 20 139/83 100 03/03/24 02:55 79 22 135/80 100 03/03/24 02:50 80 22 129/80 100 03/03/24 02:45 78 22 130/76 100 03/03/24 02:30 77 22 106/64 100 03/03/24 02:25 80 22 117/75 100 03/03/24 02:15 82 22 116/73 100 03/03/24 02:10 03/03/24 02:05 83 22 108/70 100 03/03/24 02:00 97.2 F L 91 22 102/67 100 03/03/24 01:55 87 22 103/64 100 03/03/24 01:50 89 22 99/63 100 03/03/24 01:45 91 22 97/61 100 03/03/24 01:40 93 22 96/59 100 03/03/24 01:35 96 22 103/61 100 03/03/24 01:32 03/03/24 01:30 87 22 67/41 100 03/03/24 01:24 89 22 59/39 100 03/03/24 01:17 91 20 61/40 100 FiO2 03/03/24 03:55 50 03/03/24 03:52 50 03/03/24 03:37 03/03/24 03:10 03/03/24 02:55 03/03/24 02:50 03/03/24 02:45 03/03/24 02:30 03/03/24 02:25 03/03/24 02:15 03/03/24 02:10 50 03/03/24 02:05 03/03/24 02:00 03/03/24 01:55 03/03/24 01:50 03/03/24 01:45 03/03/24 01:40 03/03/24 01:35 03/03/24 01:32 100 03/03/24 01:30 03/03/24 01:24 03/03/24 01:17 Intake and Output 03/02/24 03/02/24 03/03/24 14:59 22:59 06:59 Intake Total 43.525 Balance 43.525 Intake: Intake, IV Titration 43.525 Amount Norepinephrine 4 mg In 37.068 Sodium Chloride 0.9% 250 ml @ 0.03 MCG/KG/MIN 6.74 mls/hr IV .Q24H ONE Rx#: [id number] propofoL 1,000 mg In 6.457 Empty Bag 1 bag @ 15 MCG/ KG/MIN 5.307 mls/hr IV . [id number] [facility] Rx#:[id number] Other: Weight 58.967 kg Results CBC & Chem 7: 03/03/24 01:28 03/03/24 01:28 Labs: Abnormal Lab Results - Last 24 Hours (Table) 03/03/24 03/03/24 03/03/24 Range/Units 01:21 01:28 01:28 RBC 2.98 L (3.80-5.40) m/uL Hgb 9.8 L (11.4-16.0) gm/dL Hct 33.3 L (34.0-46.0) % MCV 111.5 H (80.0-100.0) fL MCHC 29.5 L (31.0-37.0) g/dL Macrocytosis Marked A APTT 38.1 H (22.0-30.0) sec ABG pH (7.35-7.45) ABG pO2 (83-108) mmHg ABG HCO3 (21-25) mmol/L ABG Total CO2 (19-24) mmol/L ABG O2 Saturation (94-97) % Hemoglobin (11.4-16.0) gm/dL Chloride (98-107) mmol/L Carbon Dioxide (22-30) mmol/L Glucose (74-99) mg/dL POC Glucose (mg/dL) 177 H (70-110) mg/dL Plasma Lactic Acid Zane (0.7-2.0) mmol/L Calcium (8.4-10.2) mg/dL AST (14-36) U/L ALT (4-34) U/L Albumin (3.5-5.0) g/dL Serum Alcohol mg/dL 03/03/24 03/03/24 03/03/24 Range/Units 01: 01: 02:00 RBC (3.80-5.40) m/uL Hgb (11.4-16.0) gm/dL Hct (34.0-46.0) % MCV (80.0-100.0) fL MCHC (31.0-37.0) g/dL Macrocytosis APTT (22.0-30.0) sec ABG pH 7.06 L* (7.35-7.45) ABG pO2 >420 H (83-108) mmHg ABG HCO3 11 L (21-25) mmol/L ABG Total CO2 13 L (19-24) mmol/L ABG O2 Saturation 100.0 H (94-97) % Hemoglobin 8.4 L (11.4-16.0) gm/dL Chloride 109 H (98-107) mmol/L Carbon Dioxide 6 L* (22-30) mmol/L Glucose 157 H (74-99) mg/dL POC Glucose (mg/dL) (70-110) mg/dL Plasma Lactic Acid Zane 13.2 H* (0.7-2.0) mmol/L Calcium 8.2 L (8.4-10.2) mg/dL AST 197 H (14-36) U/L ALT 48 H (4-34) U/L Albumin 3.3 L (3.5-5.0) g/dL Serum Alcohol 351 H* mg/dL 03/03/24 Range/Units 03:52 RBC (3.80-5.40) m/uL Hgb (11.4-16.0) gm/dL Hct (34.0-46.0) % MCV (80.0-100.0) fL MCHC (31.0-37.0) g/dL Macrocytosis APTT (22.0-30.0) sec ABG pH (7.35-7.45) ABG pO2 (83-108) mmHg ABG HCO3 (21-25) mmol/L ABG Total CO2 (19-24) mmol/L ABG O2 Saturation (94-97) % Hemoglobin (11.4-16.0) gm/dL Chloride (98-107) mmol/L Carbon Dioxide (22-30) mmol/L Glucose (74-99) mg/dL POC Glucose (mg/dL) 118 H (70-110) mg/dL Plasma Lactic Acid Zane (0.7-2.0) mmol/L Calcium (8.4-10.2) mg/dL AST (14-36) U/L ALT (4-34) U/L Albumin (3.5-5.0) g/dL Serum Alcohol mg/dL Thrombosis Risk Factor Assmnt - Choose All That Apply Any of the Below Risk Factors Present?: Yes Each Factor Represents 1 point: Medical pt on bed rest Other Risk Factors: Yes Each Risk Factor Represents 2 Points: Age 61-74 years Thrombosis Risk Factor Assessment Total Risk Factor Score: 3 Thrombosis Risk Factor Assessment Level: Moderate Risk
[2024-03-03 05:55] LABS: ABG Base Excess -11.9 mmol/L; ABG HCO3 13 mmol/L (21-25); ABG Oxygen Saturation 99.6 % (94-97); ABG PCO2 24 mmHg (35-45); ABG PH 7.33 (7.35-7.45); ABG PO2 194 mmHg (83-108); ABG TCO2 13 mmol/L (19-24); Allen Test Performed? Yes
[2024-03-03 06:54] LABS: Glucose,Whole Blood 141 mg/dL (70-110)
[2024-03-03] MEDS: NOREPINEPHRINE 32 MG in SODIUM CHLORIDE 0.9% 218 ML IV SCH (06:58)
[2024-03-03] MEDS: INSULIN ASPART (NovoLOG) 100 UNIT/ML VIAL SQ SCH (06:59)
--- NOTE | 2024-03-03 07:50 | XR ---
EXAMINATION TYPE: XR chest 1V portable DATE OF EXAM: 03/03/2024 CLINICAL HISTORY: Difficulty breathing progress study. TECHNIQUE: Single AP portable semiupright view of the chest is obtained. COMPARISON: Chest x-ray from earlier today FINDINGS: Stable endotracheal and orogastric tubes. Stable right internal jugular central venous cat heter. Multiple overlying EKG leads currently makes evaluation suboptimal. Small to tiny bilateral pleural e ffusions with right lower lung linear scarring and/or atelectasis. Cardiac silhouette size is stable and upper limits of normal. Osseous structures are intact. IMPRESSION: Small to tiny bilateral pleural effusions with right lower lung linear scarring and/or at electasis. No significant change from most recent study. [facility], , 03/03/2024 7:48 AM
[2024-03-03] MEDS ORDERED: LORazepam 2 MG/ML INJ IV PRN ×2 (08:25)
[2024-03-03] MEDS: ENOXAPARIN 40 MG/0.4 ML SYRINGE SQ SCH (09:20)
[2024-03-03] MEDS: PANTOPRAZOLE 40 MG/10 ML VIAL IVP SCH (09:20)
[2024-03-03] MEDS: THIAMINE 100 MG/ML 2 ML VIAL IVP SCH (10:10)
[2024-03-03] MEDS: LORazepam 2 MG/ML INJ IV STA (11:03)
--- NOTE | 2024-03-03 11:13 | P.CNPUL ---
History of Present Illness Consult date: 03/03/24 Reason for consult: other (mechanial ventilation/ ICU management) History of present illness: Patient is a 63-year-old female with alcohol abuse and polysubstance abuse and was brought into the emergency department via EMS for cardiac arrest at 4 AM today.. Patient was intubated in the field and mechanically ventilated in our facility. Patient apparently lives in an apartment with 2 people and witnessed cardiac arrest. Patient was down for 20 minutes before EMS arrived. Patient was found to be in PEA was given 1 dose of epinephrine and intubated. They were able to achieve ROSC and gave 2 doses of epinephrine while in transit to our ED. Patient's mechanical ventilator settings on admission were assist-control with a rate of 20, tidal volume 400, FiO2 50 and a PEEP of 5. Patient was sedated and vasopressors were required for hemodynamic instability. Central line was also placed in the right internal jugular at our facility. Imaging on admission shows trace left pleural effusion, with endotracheal tube terminating at 4.7 cm above the elba, enteric feeding tube seen and in place, and right IJ catheter seen and in place. EKG done in the ED interpreted apparently shows sinus rhythm with occasional ectopic premature complexes. Brain CT done in the ED shows no acute intracranial defects or mass. Initial labs on admission were WBC 5.5, hemoglobin 9.8, hematocrit 33.3, MCV 111.5, platelet count 251, PT 11.8, INR 1.1, APTT 38.1,. Blood gas show pH of 7.06, pCO2 40, HCO3 11,. Sodium 140, potassium 4.3, chloride 109, bicarb 6, anion gap 25, BUN 18, creatinine 0.96, EGFR 63, glucose 157, lactic acid 13.2, calcium 8.2, AST 197, ALT 48, albumin 3.3, troponin less than 0.012. Currently in the ICU, patient is on propofol at 40mcg/kg/min and D5W 3A bicarb drip at 75ml//hr. Patient's mechanical ventilator settings on admission were assist-control with a rate of 20, tidal volume 400, FiO2 50 and a PEEP of 5. Repeat blood gases show pO2 194, pCO2 24, pH 7.33. Repeat chest x-ray today at 5 AM shows trace left pleural effusion with right lower lung linear scarring and/or atelectasis, and has no change from initial x-ray. On NPO. ERIKA balance +1 L with urine output 1.2 L. Review of systems: Unable to assess Physical examination: Vital signs reviewed General: non toxic, no distress, intubated and mechanically ventilated Derm: no unusual rashes/lesions, warm Head: atraumatic, normocephalic, symmetric Eyes: EOMI, anicteric sclera, pinpoint pupils nonreactive to light ENT: Nose and ears atraumatic Neck: No cervical lymphadenopathy, trachea midline, supple, right IJ line noted and in place. Mouth: no lip lesion, mucus membranes moist Cardiovascular: S1S2 reg, no murmur Lungs: CTA bilateral, no rhonchi, no rales, no accessory muscle use Abdominal: soft, nondistended, nontender to palpation, no guarding Ext: no gross muscle atrophy, no contractures, positive dorsalis pedis pulse bilateral, no edema Neuro: Unable to assess Psych: Unable to assess Assessment/Plan: -Active problems: Cardiac arrest outside hospital Acute respiratory failure secondary to cardiac arrest Alcohol intoxication, impending withdrawal Anion gap metabolic acidosis with superimposed metabolic alkalosis secondary to lactic acidosis and alcohol ketoacidosis Alcohol associated transaminitis -Chronic Conditions: Suspected history of polysubstance use Recommendations: Continue mechanical ventilation. Decrease FiO2 to 35%. Continue sedation on propofol. Daily interruption of sedation to assess mentation. Thermoregulation with cyndi hugger Levophed drip discontinued Continue bicarb drip 75cc/hr Ativan per CIWA protocol Consult neurology Consult dietary to initiate feeding Neurochecks Seizure precautions DVT prophylaxis: Lovenox 40 mg subcu daily GI prophylaxis: IV Protonix 40 mg once daily Prognosis: guarded. Patient critically ill. Will continue to monitor. Yesenia Alan MD PGY-1 IM Dictation was produced using [employer] dictation software. please excuse any grammatical, word or spelling errors. Past Medical History Past Medical History: Rheumatoid Arthritis (RA) Additional Past Medical History / Comment(s): per family hx of ETOH abuse, perscription drug abuse, smoker, fatty liver. History of Any Multi-Drug Resistant Organisms: Unobtainable Past Surgical History: Orthopedic Surgery Additional Past Surgical History / Comment(s): UTO Past Anesthesia/Blood Transfusion Reactions: Unable to Obtain Past Psychological History: Unable to Obtain Smoking Status: Current every day smoker Past Alcohol Use History: Heavy Past Drug Use History: Prescription Drug Abuse Medications and Allergies Home Medications Medication Instructions Recorded Confirmed Type Cyclobenzaprine [Flexeril] 10 mg PO DAILY 02/04/21 03/03/24 History Gabapentin [Neurontin] 300 mg PO TID 02/04/21 03/03/24 History Allergies Allergy/AdvReac Type Severity Reaction Status Date / Time No Known Allergies Allergy Verified 03/03/24 01:21 Physical Exam Vitals: Vital Signs Temp Pulse Pulse Resp BP BP Pulse Ox 03/03/24 07:00 95.7 F L 87 21 128/75 100 03/03/24 06:45 85 27 H 128/74 100 03/03/24 06:30 86 25 H 118/69 100 03/03/24 06:15 84 31 H 113/70 100 03/03/24 06:00 95.2 F L 78 27 H 124/71 100 03/03/24 05:45 85 29 H 121/74 100 03/03/24 05:30 85 25 H 121/73 100 03/03/24 05:15 84 21 120/68 100 03/03/24 05:00 91.9 F L 82 22 132/76 100 03/03/24 04:45 81 22 130/74 100 03/03/24 04:30 80 21 135/81 100 03/03/24 04:15 80 25 H 153/90 100 03/03/24 04:00 89 F L 82 67 26 H 169/93 100 03/03/24 03:55 03/03/24 03:52 89 F L 81 22 135/81 100 03/03/24 03:51 20 03/03/24 03:37 81 22 153/85 100 03/03/24 03:10 81 20 139/83 100 03/03/24 02:55 79 22 135/80 100 03/03/24 02:50 80 22 129/80 100 03/03/24 02:45 78 22 130/76 100 03/03/24 02:30 77 22 106/64 100 03/03/24 02:25 80 22 117/75 100 03/03/24 02:15 82 22 116/73 100 03/03/24 02:10 03/03/24 02:05 83 22 108/70 100 03/03/24 02:00 97.2 F L 91 22 102/67 100 03/03/24 01:55 87 22 103/64 100 03/03/24 01:50 89 22 99/63 100 03/03/24 01:45 91 22 97/61 100 03/03/24 01:40 93 22 96/59 100 03/03/24 01:35 96 22 103/61 100 03/03/24 01:32 03/03/24 01:30 87 22 67/41 100 03/03/24 01:24 89 22 59/39 100 03/03/24 01:17 91 20 61/40 100 FiO2 03/03/24 07:00 50 03/03/24 06:45 03/03/24 06:30 03/03/24 06:15 60 03/03/24 06:00 03/03/24 05:45 03/03/24 05:30 03/03/24 05:15 03/03/24 05:00 50 03/03/24 04:45 50 03/03/24 04:30 50 03/03/24 04:15 50 03/03/24 04:00 60 03/03/24 03:55 50 03/03/24 03:52 50 03/03/24 03:51 03/03/24 03:37 03/03/24 03:10 03/03/24 02:55 03/03/24 02:50 03/03/24 02:45 03/03/24 02:30 03/03/24 02:25 03/03/24 02:15 03/03/24 02:10 50 03/03/24 02:05 03/03/24 02:00 03/03/24 01:55 03/03/24 01:50 03/03/24 01:45 03/03/24 01:40 03/03/24 01:35 03/03/24 01:32 100 03/03/24 01:30 03/03/24 01:24 03/03/24 01:17 Intake and Output 03/02/24 03/03/24 03/03/24 22:59 06:59 14:59 Intake Total 2233.750 85 Output Total 1225 50 Balance 1008.750 35 Intake: IV 20 10 KVO 20 10 Intake, IV Titration 2213.750 75 Amount Dextrose 5% in Water 1, 150 75 000 ml @ 75 mls/hr IV . [id number] [facility] with Sodium Bicarb (1 Meq/ml) 150 ml Rx#:[id number] Norepinephrine 4 mg In 37.068 Sodium Chloride 0.9% 250 ml @ 0.03 MCG/KG/MIN 6.74 mls/hr IV .Q24H ONE Rx#: [id number] Sodium Chloride 0.9% 1, 1000 000 ml @ 999 mls/hr IV . Q1H1M [facility] Rx#:[id number] Sodium Chloride 0.9% 1, 1000 000 ml @ 999 mls/hr IV . Q1H1M ONE Rx#:[id number] propofoL 1,000 mg In 26.682 Empty Bag 1 bag @ 15 MCG/ KG/MIN 5.307 mls/hr IV . [id number] [facility] Rx#:[id number] Output: Urine 1225 50 Other: Voiding Method Indwelling Catheter Weight 58.967 kg Results - Laboratory Findings CBC and BMP: 03/03/24 01:28 03/03/24 01:28 ABG ABG pH 7.33 (7.35-7.45) L 03/03/24 05:53 ABG pCO2 24 mmHg (35-45) L 03/03/24 05:53 ABG pO2 194 mmHg (83-108) H 03/03/24 05:53 ABG O2 Saturation 99.6 % (94-97) H 03/03/24 05:53 PT/INR, D-dimer PT 11.8 sec (10.0-12.5) 03/03/24 01:28 INR 1.1 (<1.2) 03/03/24 01:28 Abnormal lab findings: Abnormal Labs 03/03/24 03/03/24 03/03/24 01:21 01:28 01:28 RBC 2.98 L Hgb 9.8 L Hct 33.3 L MCV 111.5 H MCHC 29.5 L Macrocytosis Marked A APTT 38.1 H ABG pH ABG pCO2 ABG pO2 ABG HCO3 ABG Total CO2 ABG O2 Saturation Hemoglobin Chloride Carbon Dioxide Glucose POC Glucose (mg/dL) 177 H Plasma Lactic Acid Azne Calcium AST ALT Albumin Serum Alcohol 03/03/24 03/03/24 03/03/24 01:28 01:28 02:00 RBC Hgb Hct MCV MCHC Macrocytosis APTT ABG pH 7.06 L* ABG pCO2 ABG pO2 >420 H ABG HCO3 11 L ABG Total CO2 13 L ABG O2 Saturation 100.0 H Hemoglobin 8.4 L Chloride 109 H Carbon Dioxide 6 L* Glucose 157 H POC Glucose (mg/dL) Plasma Lactic Acid Zane 13.2 H* Calcium 8.2 L AST 197 H ALT 48 H Albumin 3.3 L Serum Alcohol 351 H* 03/03/24 03/03/24 03/03/24 03:52 05:01 05:53 RBC Hgb Hct MCV MCHC Macrocytosis APTT ABG pH 7.33 L ABG pCO2 24 L ABG pO2 194 H ABG HCO3 13 L ABG Total CO2 13 L ABG O2 Saturation 99.6 H Hemoglobin 10.2 L Chloride Carbon Dioxide Glucose POC Glucose (mg/dL) 118 H Plasma Lactic Acid Zane 8.6 H* Calcium AST ALT Albumin Serum Alcohol 03/03/24 06:53 RBC Hgb Hct MCV MCHC Macrocytosis APTT ABG pH ABG pCO2 ABG pO2 ABG HCO3 ABG Total CO2 ABG O2 Saturation Hemoglobin Chloride Carbon Dioxide Glucose POC Glucose (mg/dL) 141 H Plasma Lactic Acid Zane Calcium AST ALT Albumin Serum Alcohol
--- NOTE | 2024-03-03 11:57 | PCN ---
PROCEDURE NOTE PROCEDURE: Right radial arterial line. PREOPERATIVE DIAGNOSIS: Frequent blood draws and blood gas monitoring. POSTOPERATIVE DIAGNOSIS: Frequent blood draws and blood gas monitoring. OPERATORS: Dr. Juarez, Dr. Martínez, Dr. Thompson, and Dr. Gaston. ARTERIAL LINE PLACEMENT: Indications: Hemodynamic monitoring. A time-out was completed verifying correct patient, procedure, site, positioning, and implant(s) or special equipment if applicable. Gregg's test was performed to ensure adequate perfusion. The patient's right wrist or right groin was prepped and draped in sterile fashion. 1% Lidocaine was used to anesthetize the area. An 18G Arrow arterial line was introduced into the right radial artery. The catheter was threaded over the guide wire and the needle was removed with appropriate pulsatile blood return. Blood loss was minimal. The catheter was then sutured in place to the skin and a sterile dressing applied. Perfusion to the extremity distal to the point of catheter insertion was checked and found to be adequate. There was good blood return and waveform. The patient tolerated the procedure well. The catheter was sutured in place. Sterile dressing was applied by the nurse. There was no immediate complication. MMODL / IJN: [id number] /
[2024-03-03 12:06] LABS: Glucose,Whole Blood 118 mg/dL (70-110)
[2024-03-03] MEDS: levETIRAcetam IV 500 MG/5 ML VIAL IVP STA (13:50)
--- NOTE | 2024-03-03 16:47 | P.PN ---
Subjective Progress Note Date: 03/03/24 Hospital course Patient is a 63-year-old female apparently with alcohol abuse and polysubstance abuse is brought to the emergency department via EMS for cardiac arrest. Patient is mechanically ventilated so history is obtained from the ER note as well as by talking to Dr. Munoz. Apparently patient lives in an apartment with 2 people who called police after she was unresponsive for about 20 minutes before the EMS arrived. Patient was found to be in PEA and was given 1 dose of epinephrine and was intubated. They were able to achieve ROSC. Patient received an additional 2 doses of epinephrine while in transit to ED. Patient is currently mechanically ventilated on control assist with settings of respiratory rate of 20, tidal volume 400, FiO2 50 and PEEP of 5. Patient is currently on propofol drip and vasopressors. Initial laboratory evaluation WBC 5.5, hemoglobin 9.8, hematocrit 33.3, MCV 1 11.5, platelet count 251, PT 11.8, INR 1.1, APTT 38.1,. Blood gas show pH of 7.06, pCO2 40, HCO3 11,. Sodium 140, potassium 4.3, chloride 109, bicarb 6, anion gap 25, BUN 18, creatinine 0.96, EGFR 63, glucose 157, lactic acid 13.2, calcium 8.2, AST 197, ALT 48, albumin 3.3, troponin less than 0.012. Vitals on arrival with a heart rate of 91, respiratory rate 20, blood pressure 61/40, oxygen 100% saturation with mechanical isolation. Urinalysis negative. Urine toxicology is negative Serum alcohol 351 Chest x-ray done in ED interpreted independently shows small left pleural effusion Brain CT done in the ED shows no acute intracranial defects or mass. EKG done in the ED interpreted apparently shows sinus rhythm with occasional ectopic premature complexes Subjective: Patient seen and examined at bedside. Currently sedated on mechanical ventilation. Pertinent positives and negatives as discussed above, a complete review of systems was performed and all other systems are negative. Vitals: Signs Reviewed Physical Exam: General: sedated, mechanical respirator Derm: warm, dry, intact Head: atraumatic, normocephalic, symmetric Eyes: EOMI, anicteric sclera Mouth: no lip lesion, mucus membranes moist Cardiovascular: S1 S2 reg, no murmur, rubs, or gallops Lungs: CTA bilateral, no rhonchi, no rales, no accessory muscle use Abdominal: soft, non-tender to palpataion, no appreciable organomegaly Extremities: no gross muscle atrophy, no edema, no contractures Neuro: Alert, Oriented, CNII-XII grossly intact, gait normal Psych: well appearing, appropriate affect Data Received Today: Pertinent Labs: CO2 6, anion gap 25, lactic acid 4.4, ABG 7.33/24/194, Hgb 9.8 Imaging: CXR Assessment/Plan: This is a 63-year-old female with a history of alcohol abuse and polysubstance abuse who is brought to the ER for out of hospital cardiac arrest. #Cardiac arrest outside hospital #Alcohol intoxication #Suspected history of polysubstance use Patient is currently intubated and mechanically supported on control assist with settings of respiratory rate of 20, tidal volume 400, FiO2 50 and PEEP of 5. Patient is currently on propofol drip, assess sedation holiday today Maintain a MAP of more than equal to 65 Levophed drip discontinued Chest x-ray done in ED interpreted independently shows small left pleural effusion Brain CT done in the ER shows no acute intracranial defects or mass. EKG done in the ER interpreted apparently shows sinus rhythm with occasional ectopic premature complexes Urine toxicology is negative Serum alcohol 351 Initiate transfer to the ICU Continue monitor vital signs Strict I's and O's Order TSH, vitamin B12 Order IV thiamine 100 mg IVP daily Placed on CIWA protocol, Ativan as per protocol CBC in a.m. Neurochecks and seizure precautions Resume home gabapentin Neurology has been consulted #Anion gap metabolic acidosis with superimposed metabolic alkalosis secondary to lactic acidosis and alcoholic ketoacidosis # Hypovolemic shock, resolved Blood gas show pH of 7.06, pCO2 40, HCO3 11 Sodium 140, potassium 4.3, chloride 109, bicarb 6, anion gap 25 Lactic acid 13.2 Patient is status post 2 sodium bicarb infusions in the ED Continue with bicarb drip running at 75 cc/h Repeat ABG in a.m. Recheck lactic acid in a.m. #Hyperglycemia Accu-Cheks and sliding scale insulin Order HbA1c #Alcohol associated transaminitis AST 197, ALT 48 Continue monitor CMP CMP in a.m. #Macrocytic anemia likely in the setting of alcohol abuse Unknown Hb baseline Hemoglobin 9.8, MCV heart 11.5, Check vitamin B12 and RBC folate Iron profile ordered DVT prophylaxis: Lovenox 40 mg subcu daily GI prophylaxis: IV Protonix 40 mg once daily F: IV normal saline at 75 cc/h E: Replete as needed N: NPO A: Ambulatory at baseline at home DVT ppx: Lovenox 40 SQ daily Code status: Full code Anticipated discharge place: Pending clinical course Anticipated discharge time: Pending clinical course Jose Chan MD PGY-1 IM Dictation was produced using [employer] dictation software. please excuse any grammatical, word or spelling errors. I saw and evaluated the patient during the aguirre and critical portions of this encounter, and discussed the case in detail with the resident author of this note, I agree with the Assessment and Plan, and my changes, if any, are highlighted in blue. Objective - Vital Signs Vital signs: Vital Signs Temp 95.2 F L 03/03/24 06:00 Pulse 84 03/03/24 06:15 Resp 31 H 03/03/24 06:15 BP 113/70 03/03/24 06:15 Pulse Ox 100 03/03/24 06:15 FiO2 60 03/03/24 06:15 Intake & Output 03/02/24 03/03/24 03/03/24 18:59 06:59 18:59 Intake Total 2233.750 Output Total 1225 Balance 1008.750 Weight 58.967 kg Intake: IV 20 KVO 20 Intake, IV Titration 2213.750 Amount Dextrose 5% in Water 1, 150 000 ml @ 75 mls/hr IV . [id number] KADEEM with Sodium Bicarb (1 Meq/ml) 150 ml Rx#:[id number] Norepinephrine 4 mg In 37.068 Sodium Chloride 0.9% 250 ml @ 0.03 MCG/KG/MIN 6.74 mls/hr IV .Q24H ONE Rx#: [id number] Sodium Chloride 0.9% 1, 1000 000 ml @ 999 mls/hr IV . Q1H1M ONE Rx#:[id number] Sodium Chloride 0.9% 1, 1000 000 ml @ 999 mls/hr IV . Q1H1M ONE Rx#:[id number] propofoL 1,000 mg In 26.682 Empty Bag 1 bag @ 15 MCG/ KG/MIN 5.307 mls/hr IV . [id number] KADEEM Rx#:[id number] Output: Urine 1225 Other: Voiding Method Indwelling Catheter - Labs CBC & Chem 7: 03/03/24 01:03/03/24: Labs: Abnormal Lab Results - Last 24 Hours (Table) 03/03/24 03/03/24 03/03/24 Range/Units 01:28 02: 01: RBC 2.98 L (3.80-5.40) m/uL Hgb 9.8 L (11.4-16.0) gm/dL Hct 33.3 L (34.0-46.0) % MCV 111.5 H (80.0-100.0) fL MCHC 29.5 L (31.0-37.0) g/dL Macrocytosis Marked A APTT 38.1 H (22.0-30.0) sec ABG pH (7.35-7.45) ABG pCO2 (35-45) mmHg ABG pO2 (83-108) mmHg ABG HCO3 (21-25) mmol/L ABG Total CO2 (19-24) mmol/L ABG O2 Saturation (94-97) % Hemoglobin (11.4-16.0) gm/dL Chloride (98-107) mmol/L Carbon Dioxide (22-30) mmol/L Glucose (74-99) mg/dL POC Glucose (mg/dL) 177 H (70-110) mg/dL Plasma Lactic Acid Zane (0.7-2.0) mmol/L Calcium (8.4-10.2) mg/dL AST (14-36) U/L ALT (4-34) U/L Albumin (3.5-5.0) g/dL Serum Alcohol mg/dL 03/03/24 03/03/24 03/03/24 Range/Units :07 03: 02:00 RBC (3.80-5.40) m/uL Hgb (11.4-16.0) gm/dL Hct (34.0-46.0) % MCV (80.0-100.0) fL MCHC (31.0-37.0) g/dL Macrocytosis APTT (22.0-30.0) sec ABG pH 7.06 L* (7.35-7.45) ABG pCO2 (35-45) mmHg ABG pO2 >420 H (83-108) mmHg ABG HCO3 11 L (21-25) mmol/L ABG Total CO2 13 L (19-24) mmol/L ABG O2 Saturation 100.0 H (94-97) % Hemoglobin 8.4 L (11.4-16.0) gm/dL Chloride 109 H (98-107) mmol/L Carbon Dioxide 6 L* (22-30) mmol/L Glucose 157 H (74-99) mg/dL POC Glucose (mg/dL) (70-110) mg/dL Plasma Lactic Acid Zane 13.2 H* (0.7-2.0) mmol/L Calcium 8.2 L (8.4-10.2) mg/dL AST 197 H (14-36) U/L ALT 48 H (4-34) U/L Albumin 3.3 L (3.5-5.0) g/dL Serum Alcohol 351 H* mg/dL 03/03/24 03/03/24 03/03/24 Range/Units 03:52 05:01 05:53 RBC (3.80-5.40) m/uL Hgb (11.4-16.0) gm/dL Hct (34.0-46.0) % MCV (80.0-100.0) fL MCHC (31.0-37.0) g/dL Macrocytosis APTT (22.0-30.0) sec ABG pH 7.33 L (7.35-7.45) ABG pCO2 24 L (35-45) mmHg ABG pO2 194 H (83-108) mmHg ABG HCO3 13 L (21-25) mmol/L ABG Total CO2 13 L (19-24) mmol/L ABG O2 Saturation 99.6 H (94-97) % Hemoglobin 10.2 L (11.4-16.0) gm/dL Chloride (98-107) mmol/L Carbon Dioxide (22-30) mmol/L Glucose (74-99) mg/dL POC Glucose (mg/dL) 118 H (70-110) mg/dL Plasma Lactic Acid Zane 8.6 H* (0.7-2.0) mmol/L Calcium (8.4-10.2) mg/dL AST (14-36) U/L ALT (4-34) U/L Albumin (3.5-5.0) g/dL Serum Alcohol mg/dL 03/03/24 Range/Units 06:53 RBC (3.80-5.40) m/uL Hgb (11.4-16.0) gm/dL Hct (34.0-46.0) % MCV (80.0-100.0) fL MCHC (31.0-37.0) g/dL Macrocytosis APTT (22.0-30.0) sec ABG pH (7.35-7.45) ABG pCO2 (35-45) mmHg ABG pO2 (83-108) mmHg ABG HCO3 (21-25) mmol/L ABG Total CO2 (19-24) mmol/L ABG O2 Saturation (94-97) % Hemoglobin (11.4-16.0) gm/dL Chloride (98-107) mmol/L Carbon Dioxide (22-30) mmol/L Glucose (74-99) mg/dL POC Glucose (mg/dL) 141 H (70-110) mg/dL Plasma Lactic Acid Zane (0.7-2.0) mmol/L Calcium (8.4-10.2) mg/dL AST (14-36) U/L ALT (4-34) U/L Albumin (3.5-5.0) g/dL Serum Alcohol mg/dL
[2024-03-03] MEDS: GABAPENTIN 300 MG CAP PO SCH (17:15)
[2024-03-03] MEDS: LORazepam 2 MG/ML INJ IV PRN (17:23)
[2024-03-03 17:30] LABS: Glucose,Whole Blood 115 mg/dL (70-110)
[2024-03-03] MEDS: ACETAMINOPHEN TAB 325 MG TAB PO PRN (18:58)
[2024-03-03] MEDS: levETIRAcetam IV 500 MG/5 ML VIAL IVP SCH (21:44)
[2024-03-03 23:47] LABS: Glucose,Whole Blood 160 mg/dL (70-110)
[2024-03-04] MEDS: INSULIN ASPART (NovoLOG) 100 UNIT/ML VIAL SQ SCH (00:08)
--- NOTE | 2024-03-04 03:42 | EEG ---
ELECTROENCEPHALOGRAM REPORT PREAMBLE: This is a 63-year-old female with cardiac arrest with prolonged down time. This study is performed to evaluate for cerebral activity, rule out any seizure activity. EEG FINDINGS: This is a 21-channel digital EEG recorded with video component, utilizing 10/20 international system with referential and bipolar montages. The recording starts and continues with presence of burst suppressed pattern. The bursts consist of high- amplitude dysrhythmic sharp and some slow waves, lasting for 1 second followed by periods of generalized suppression lasting for 6 to 8 seconds. Patient is currently on propofol 40 mcg/kg per minute. Some eye twitching was noted clinically during this study. Different stages of sleep were not seen. Hyperventilation and photic stimulation were not performed. IMPRESSION: This is an abnormal EEG due to the presence of burst suppressed pattern as described above. This pattern can be seen with severe anoxic encephalopathy. Clinical correlation, and followup EEG recommended, if clinically indicated. MMDARREL / DAMARIS: [id number] /
[2024-03-04 05:09] LABS: Basophils % (A) 0 %; Eosinophils % (A) 0 %; HCT 33.3 % (34.0-46.0); HGB 10.9 gm/dL (11.4-16.0); Lymphocytes # (A) 0.8 k/uL (1.0-4.8); Lymphocytes % (A) 9 %; MCH 32.1 pg (25.0-35.0); MCHC 32.7 g/dL (31.0-37.0); Mean Platelet Volume 8.1; Monocytes # (A) 0.2 k/uL (0-1.0); Monocytes % (A) 3 %; Neutrophils # (A) 7.4 k/uL (1.3-7.7); Neutrophils % (A) 88 %; Platelet Count 199 k/uL (150-450); RBC 3.39 m/uL (3.80-5.40); RDW 14.1 % (11.5-15.5); WBC 8.5 k/uL (3.8-10.6)
[2024-03-04 05:10] LABS: African American GFR (CKD) >90 (>60 ml/min/1.73 sqM); Anion Gap 8 mmol/L; Blood Urea Nitrogen 15 mg/dL (7-17); Carbon Dioxide 28 mmol/L (22-30); Chloride 98 mmol/L (98-107); Glucose 157 mg/dL (74-99); Non-African American GFR(CKD) 82 (>60 ml/min/1.73 sqM); Potassium 2.8 mmol/L (3.5-5.1); Sodium 134 mmol/L (137-145)
[2024-03-04 05:12] LABS: MCV 98.3 fL (80.0-100.0)
[2024-03-04 05:13] LABS: ABG Base Excess 7.9 mmol/L; ABG HCO3 31 mmol/L (21-25); ABG PCO2 35 mmHg (35-45); ABG PH 7.56 (7.35-7.45); ABG PO2 111 mmHg (83-108); ABG TCO2 32 mmol/L (19-24); Allen Test Performed? Yes
[2024-03-04 06:18] LABS: Glucose,Whole Blood 160 mg/dL (70-110)
[2024-03-04] MEDS ORDERED: Potassium Replacement Protocol 1 EACH MISC MISCELLANE PRN (06:59)
--- NOTE | 2024-03-04 07:15 | XR ---
EXAMINATION TYPE: XR chest 1V portable DATE OF EXAM: 03/04/2024 COMPARISON: 03/03/2024 CLINICAL INDICATION: Female, 63 years old with history of mechanical ventilation; TECHNIQUE: Single frontal view of the chest is obtained. FINDINGS: The ET tube is 5.1 cm above the elba. There is an NG tube in the stomach. There is a central venous catheter tip in the SVC/RA junction. There is no change in the mild bandlike atelectasis in the right middle or lower lobe. There is no new lung opacity or pleural effusion or pneumothorax. The heart size is normal and the pu lmonary vascular is not congested. IMPRESSION: 1. ET tube 5.1 cm above the elba. 2. No significant interval change [facility], , 03/04/2024 7:12 AM
--- NOTE | 2024-03-04 07:54 | P.CNNES ---
History of Present Illness Consult date: 03/03/24 Requesting physician: Yesenia Alan Reason for Consult: r/o anoxic brain injury History of Present Illness: Patient is a 63-year-old female with history of alcoholism, came to the hospital by ambulance early this morning at 1:15 AM for cardiac arrest. As per EMS flow sheet, when EMS arrived, fire department was on the scene with CPR in progress. Patient was laying supine on the floor next to the bed. Family on the scene mentioned that the patient was witnessed falling out of bed and becoming unresponsive approximately 20 minutes prior to EMS arrival. Family on the scene stated the patient has a history of alcoholism. AED was placed with "no shock advised". CPR was continued by EMS upon arrival. Patient was in asystole. Josue device placed. Patient was intubated at the scene. Appendectomy 1 mg IV administered and CPR was continued. Vikash Parham and at 12:40 AM the normal sinus rhythm. Patient was hypotensive during the transport. Fluid bolus was given. Appendectomy second dose administered. As per EMS flow sheet, they estimated time of arrest was 12:05 AM, for CPR started at 12:17 AM and will ask achieved at 12:40 AM. Therefore the downtime appears to be 35 minutes. Vital signs on arrival blood pressure 61/40, pulse rate 91, temperature 97.2. Patient's hypotension has subsequently improved. Blood test shows normal WBC hemoglobin 9.8, elevated MCV 111.5. Platelets are 251. INR normal. Normal electrolytes, carbon oxide is 6. Renal functions are normal, AST 197 ALT 48. Troponin negative. UA negative urine drug screen negative. Blood alcohol level 351. B12 1276, TSH 3.95. Lactate was elevated up to 13.2. EKG showed sinus rhythm with occasional ectopic premature complexes. Chest x-ray showed small to tiny bilateral pleural effusions with right lower lung linear scarring and/or atelectasis. No significant change from most recent study. CT head revealed no acute intracranial process. I personally reviewed CT head and there is evidence of old encephalomalacia in the left posterior parietal and posterior temporal lobes. Review of Systems ROS unobtainable: due to endotracheal tube, due to mental status Past Medical History Past Medical History: Rheumatoid Arthritis (RA) Additional Past Medical History / Comment(s): per family hx of ETOH abuse, perscription drug abuse, smoker, fatty liver. History of Any Multi-Drug Resistant Organisms: Unobtainable Past Surgical History: Orthopedic Surgery Additional Past Surgical History / Comment(s): UTO Past Anesthesia/Blood Transfusion Reactions: Unable to Obtain Past Psychological History: Unable to Obtain Smoking Status: Current every day smoker Past Alcohol Use History: Heavy Past Drug Use History: Prescription Drug Abuse Medications and Allergies Home Medications Medication Instructions Recorded Confirmed Type Cyclobenzaprine [Flexeril] 10 mg PO DAILY 02/04/21 03/03/24 History Gabapentin [Neurontin] 300 mg PO TID 02/04/21 03/03/24 History Allergies Allergy/AdvReac Type Severity Reaction Status Date / Time No Known Allergies Allergy Verified 03/03/24 01:21 Physical Examination - Vital Signs Vital Signs: Vital Signs Temp Pulse Pulse Resp BP BP Pulse Ox 03/03/24 11:00 96 24 143/76 100 03/03/24 10:45 96 20 144/77 100 03/03/24 10:42 03/03/24 10:30 96 20 144/80 100 03/03/24 10:15 95 21 146/76 100 03/03/24 10:00 96 24 145/76 100 03/03/24 09:45 93 21 145/76 100 03/03/24 09:30 93 15 143/76 100 03/03/24 09:15 92 17 146/79 03/03/24 09:00 92 15 147/81 100 03/03/24 08:53 03/03/24 08:45 92 25 H 147/80 100 03/03/24 08:30 89 22 147/80 100 03/03/24 08:15 90 24 147/83 100 03/03/24 08:00 97.0 F L 90 23 142/78 100 03/03/24 07:45 90 26 H 145/88 100 03/03/24 07:30 91 24 139/77 100 03/03/24 07:28 03/03/24 07:15 86 23 134/78 100 03/03/24 07:00 95.7 F L 87 21 128/75 100 03/03/24 06:45 85 27 H 128/74 100 03/03/24 06:30 86 25 H 118/69 100 03/03/24 06:15 84 31 H 113/70 100 03/03/24 06:00 95.2 F L 78 27 H 124/71 100 03/03/24 05:45 85 29 H 121/74 100 03/03/24 05:30 85 25 H 121/73 100 03/03/24 05:15 84 21 120/68 100 03/03/24 05:00 91.9 F L 82 22 132/76 100 03/03/24 04:45 81 22 130/74 100 03/03/24 04:30 80 21 135/81 100 03/03/24 04:15 80 25 H 153/90 100 03/03/24 04:00 89 F L 82 67 26 H 169/93 100 03/03/24 03:55 03/03/24 03:52 89 F L 81 22 135/81 100 03/03/24 03:51 20 03/03/24 03:37 81 22 153/85 100 03/03/24 03:10 81 20 139/83 100 03/03/24 02:55 79 22 135/80 100 03/03/24 02:50 80 22 129/80 100 03/03/24 02:45 78 22 130/76 100 03/03/24 02:30 77 22 106/64 100 03/03/24 02:25 80 22 117/75 100 03/03/24 02:15 82 22 116/73 100 03/03/24 02:10 03/03/24 02:05 83 22 108/70 100 03/03/24 02:00 97.2 F L 91 22 102/67 100 03/03/24 01:55 87 22 103/64 100 03/03/24 01:50 89 22 99/63 100 03/03/24 01:45 91 22 97/61 100 03/03/24 01:40 93 22 96/59 100 03/03/24 01:35 96 22 103/61 100 03/03/24 01:32 03/03/24 01:30 87 22 67/41 100 03/03/24 01:24 89 22 59/39 100 03/03/24 01:17 91 20 61/40 100 FiO2 03/03/24 11:00 03/03/24 10:45 03/03/24 10:42 35 03/03/24 10:30 03/03/24 10:15 03/03/24 10:00 03/03/24 09:45 03/03/24 09:30 03/03/24 09:15 03/03/24 09:00 03/03/24 08:53 35 03/03/24 08:45 03/03/24 08:30 03/03/24 08:15 03/03/24 08:00 60 03/03/24 07:45 03/03/24 07:30 03/03/24 07:28 50 03/03/24 07:15 03/03/24 07:00 50 03/03/24 06:45 03/03/24 06:30 03/03/24 06:15 60 03/03/24 06:00 03/03/24 05:45 03/03/24 05:30 03/03/24 05:15 03/03/24 05:00 50 03/03/24 04:45 50 03/03/24 04:30 50 03/03/24 04:15 50 03/03/24 04:00 60 03/03/24 03:55 50 03/03/24 03:52 50 03/03/24 03:51 03/03/24 03:37 03/03/24 03:10 03/03/24 02:55 03/03/24 02:50 03/03/24 02:45 03/03/24 02:30 03/03/24 02:25 03/03/24 02:15 03/03/24 02:10 50 03/03/24 02:05 03/03/24 02:00 03/03/24 01:55 03/03/24 01:50 03/03/24 01:45 03/03/24 01:40 03/03/24 01:35 03/03/24 01:32 100 03/03/24 01:30 03/03/24 01:24 03/03/24 01:17 Intake and Output 03/02/24 03/03/24 03/03/24 22:59 06:59 14:59 Intake Total 2233.750 326.419 Output Total 1225 410 Balance 1008.750 -83.581 Intake: IV 20 50 KVO 20 50 Intake, IV Titration 2213.750 276.419 Amount Dextrose 5% in Water 1, 150 225 000 ml @ 75 mls/hr IV . [id number] KADEEM with Sodium Bicarb (1 Meq/ml) 150 ml Rx#:[id number] Norepinephrine 4 mg In 37.068 Sodium Chloride 0.9% 250 ml @ 0.03 MCG/KG/MIN 6.74 mls/hr IV .Q24H ONE Rx#: [id number] Sodium Chloride 0.9% 1, 1000 000 ml @ 999 mls/hr IV . Q1H1M ONE Rx#:[id number] Sodium Chloride 0.9% 1, 1000 000 ml @ 999 mls/hr IV . Q1H1M ONE Rx#:[id number] propofoL 1,000 mg In 26.682 51.419 Empty Bag 1 bag @ 15 MCG/ KG/MIN 5.307 mls/hr IV . [id number] KADEEM Rx#:[id number] Output: Urine 1225 410 Other: Voiding Method Indwelling Catheter Indwelling Catheter Weight 58.967 kg ABP, PAP, CO, CI - Last 8 Hours Arterial Blood Pressure 157/69 Arterial Blood Pressure 157/71 Arterial Blood Pressure 119/77 Arterial Blood Pressure 151/74 Arterial Blood Pressure 137/69 Patient is an elderly female, laying in the bed, intubated, sedated on propofol 40 mcg/kg per minute. Patient is comatose. GCS of 3. Patient is sometimes having some eye twitches noticed. No seizure-like activity noted regarding the extremities. On cranial nerve examination, pupils are equal, small, round and sluggishly reacting to light. Oculocephalics are present. She spontaneously sometimes opens eyes but does not make any eye contact or tracks. Does not follow any commands. Corneals difficult to assess because of pre-existing sometimes eye tw itching. patient does have a week gag and cough. Other cranial nerves cannot be tested. On muscle strength testing,there is no response to painful stimuli. Deep tendon reflexes are hypoactive, plantars flat. Sensory to touch and pinprick patient was not responding. Cerebellar functioncannot be assessed. Tone is increased in the arms and legs and bulk of muscles normal. Gait deferred.. On general examination, there is no carotid bruit or murmur, S1-S2 audible. Chest is clear on consultation. Abdomen is soft nontender. No organomegaly, bowel sounds present. Peripheral pulses are present. No peripheral edema. Results - Laboratory Findings CBC and BMP: 03/04/24 04:30 03/04/24 04:30 Abnormal Lab Findings: Abnormal Labs 03/03/24 03/03/24 03/03/24 01:21 01:28 01:28 RBC 2.98 L Hgb 9.8 L Hct 33.3 L MCV 111.5 H MCHC 29.5 L Macrocytosis Marked A APTT 38.1 H ABG pH ABG pCO2 ABG pO2 ABG HCO3 ABG Total CO2 ABG O2 Saturation Hemoglobin Chloride Carbon Dioxide Glucose POC Glucose (mg/dL) 177 H Plasma Lactic Acid Zane Calcium AST ALT Albumin Vitamin B12 Serum Alcohol 03/03/24 03/03/24 03/03/24 01:28 01:28 02:00 RBC Hgb Hct MCV MCHC Macrocytosis APTT ABG pH 7.06 L* ABG pCO2 ABG pO2 >420 H ABG HCO3 11 L ABG Total CO2 13 L ABG O2 Saturation 100.0 H Hemoglobin 8.4 L Chloride 109 H Carbon Dioxide 6 L* Glucose 157 H POC Glucose (mg/dL) Plasma Lactic Acid Zane 13.2 H* Calcium 8.2 L AST 197 H ALT 48 H Albumin 3.3 L Vitamin B12 Serum Alcohol 351 H* 03/03/24 03/03/24 03/03/24 03:52 05:01 05:01 RBC Hgb Hct MCV MCHC Macrocytosis APTT ABG pH ABG pCO2 ABG pO2 ABG HCO3 ABG Total CO2 ABG O2 Saturation Hemoglobin Chloride Carbon Dioxide Glucose POC Glucose (mg/dL) 118 H Plasma Lactic Acid Zane 8.6 H* Calcium AST ALT Albumin Vitamin B12 1276.0 H Serum Alcohol 03/03/24 03/03/24 03/03/24 05:53 06:53 07:41 RBC Hgb Hct MCV MCHC Macrocytosis APTT ABG pH 7.33 L ABG pCO2 24 L ABG pO2 194 H ABG HCO3 13 L ABG Total CO2 13 L ABG O2 Saturation 99.6 H Hemoglobin 10.2 L Chloride Carbon Dioxide Glucose POC Glucose (mg/dL) 141 H Plasma Lactic Acid Zane 4.4 H* Calcium AST ALT Albumin Vitamin B12 Serum Alcohol Assessment and Plan Assessment: * Witnessed, out of hospital cardiac arrest with prolonged downtime of approx imately 35 minutes, as per EMS. * Acute respiratory failure, on mechanical ventilation * Alcohol intoxication * Chronic alcoholism * Macrocytosis due to above * Elevated liver enzymes * Lactic acidosis * Anemia Plan: * Patient has a cardiac arrest with prolonged downtime. Patient showing signs of anoxic encephalopathy. * EEG was performed, which was abnormal due to presence of burst suppressed pattern, with bursts consisting of high amplitude dysrhythmic sharp and some slow waves lasting for 1 second followed by periods of suppression lasting for 6-8 seconds. This pattern can be seen with severe anoxic encephalopathy. Clinical correlation is recommended. * Patient is having some arrhythmic eye twitches. With abnormal EEG, we'll start Keppra, loading with 1500 mg IV, and then 1000 mg IV twice a day. * Other medical management as per IM and other specialties on board. * We will follow clinically. * Discussed with nursing staff in detail. Thank you for the consult.
[2024-03-04] MEDS: POTASSIUM BICARBONATE/CIT AC 20 MEQ TABLET.EFF NG-TUBE SCH ×2 (08:33→16:15)
--- NOTE | 2024-03-04 09:36 | P.PN ---
Subjective Progress Note Date: 03/04/24 Patient is a 63-year-old female with alcohol abuse and polysubstance abuse and was brought into the emergency department via EMS for cardiac arrest at 4 AM today.. Patient was intubated in the field and mechanically ventilated in our facility. Patient apparently lives in an apartment with 2 people and witnessed cardiac arrest. Patient was down for 20 minutes before EMS arrived. Patient was found to be in PEA was given 1 dose of epinephrine and intubated. They were able to achieve ROSC and gave 2 doses of epinephrine while in transit to our ED. Patient's mechanical ventilator settings on admission were assist-control with a rate of 20, tidal volume 400, FiO2 50 and a PEEP of 5. Patient was sedated and vasopressors were required for hemodynamic instability. Central line was also placed in the right internal jugular at our facility. Imaging on admission shows trace left pleural effusion, with endotracheal tube terminating at 4.7 cm above the elba, enteric feeding tube seen and in place, and right IJ catheter seen and in place. EKG done in the ED interpreted apparently shows sinus rhythm with occasional ectopic premature complexes. Brain CT done in the ED shows no acute intracranial defects or mass. Initial labs on admission were WBC 5.5, hemoglobin 9.8, hematocrit 33.3, MCV 111.5, platelet count 251, PT 11.8, INR 1.1, APTT 38.1,. Blood gas show pH of 7.06, pCO2 40, HCO3 11,. Sodium 140, potassium 4.3, chloride 109, bicarb 6, anion gap 25, BUN 18, creatinine 0.96, EGFR 63, glucose 157, lactic acid 13.2, calcium 8.2, AST 197, ALT 48, albumin 3.3, troponin less than 0.012. Currently in the ICU, patient is on propofol at 40mcg/kg/min and D5W 3A bicarb drip at 75ml//hr. Patient's mechanical ventilator settings on admission were assist-control with a rate of 20, tidal volume 400, FiO2 50 and a PEEP of 5. Repeat blood gases show pO2 194, pCO2 24, pH 7.33. Repeat chest x-ray today at 5 AM shows trace left pleural effusion with right lower lung linear scarring and/or atelectasis, and has no change from initial x-ray. On NPO. ERIKA balance +1 L with urine output 1.2 L. 03/04/2024 patient seen and examined at bedside. Patient's mechanical ventilator settings on admission were assist-control with a rate of 20, tidal volume 400, FiO2 35 and a PEEP of 5. Propofol running at 40 mics per kilogram per minute. Enteral feeding vital AF 1.2 running at a rate of 20 mL/h. ABG today showed PaO2 111, pCO2 35, pH 7.56. Labs today showed WBC 8.5, hemoglobin 10.9, platelet cou nt 1 99,000, sodium 134, potassium 2.8, chloride 98, bicarb 28, BUN 15, creatinine 0.78, glucose 157, calcium 7. Chest x-ray today showed no significant interval change in mid bandlike atelectasis seen in the right middle or lower lobe. ET tube seen at 5.1 cm above the elba in place. EEG showed abnormal EEG the presence of a burst suppression pattern as described seen with severe anoxic encephalopathy. Review of systems: Unable to assess Physical examination: Vital signs reviewed General: non toxic, no distress, intubated and mechanically ventilated Derm: no unusual rashes/lesions, warm Head: atraumatic, normocephalic, symmetric Eyes: EOMI, anicteric sclera, pinpoint pupils nonreactive to light ENT: Nose and ears atraumatic Neck: No cervical lymphadenopathy, trachea midline, supple, right IJ line noted and in place. Mouth: no lip lesion, mucus membranes moist Cardiovascular: S1S2 reg, no murmur Lungs: CTA bilateral, no rhonchi, no rales, no accessory muscle use Abdominal: soft, nondistended, nontender to palpation, no guarding Ext: no gross muscle atrophy, no contractures, positive dorsalis pedis pulse bilateral, no edema Neuro: Unable to assess Psych: Unable to assess Assessment/Plan: -Active problems: Cardiac arrest outside hospital Acute respiratory failure secondary to cardiac arrest Anoxic encephalopathy secondary to cardiac arrest Alcohol intoxication, impending withdrawal Anion gap metabolic acidosis with superimposed metabolic alkalosis secondary to lactic acidosis and alcohol ketoacidosis, resolved Alcohol associated transaminitis Hypokalemia -Chronic Conditions: Suspected history of polysubstance use Recommendations: Continue mechanical ventilation Continue sedation on propofol Daily interruption of sedation to assess mentation. Discontinue bicarb drip IVF 0.9 normal saline 75 cc/h Replete potassium per protocol. Give 60 mEq potassium p.o. recheck potassium after repletion. Ativan per [facility] protocol Neurology following. Initiated Keppra 1000 mg IVP every 12 hours Continue enteral feeding with vital AF 1.2 to goal rate Neurochecks Seizure precautions DVT prophylaxis: Lovenox 40 mg subcu daily GI prophylaxis: IV Protonix 40 mg once daily Prognosis: guarded. Patient critically ill. Will continue to monitor. Yesenia Alan MD PGY-1 IM Dictation was produced using [employer] dictation software. please excuse any grammatical, word or spelling errors. Objective - Vital Signs Vital signs: Vital Signs Temp 100.4 F H 03/04/24 04:00 Pulse 114 H 03/04/24 07:00 Resp 28 H 03/04/24 07:00 BP 161/79 03/03/24 21:00 Pulse Ox 99 03/04/24 07:00 FiO2 35 03/04/24 04:17 Intake & Output 03/03/24 03/04/24 03/04/24 18:59 06:59 18:59 Intake Total 2143.079 8275.185 105 Output Total 1035 585 50 Balance -2.642 791.185 55 Weight 58.967 kg 58.1 kg Intake: IV 570 1020 85 Dextrose 5% in Water 1, 450 900 75 000 ml @ 75 mls/hr IV . [id number] KADEEM with Sodium Bicarb (1 Meq/ml) 150 ml Rx#:[id number] KVO 120 120 10 Intake, IV Titration 372.358 76.185 Amount Dextrose 5% in Water 1, 225 000 ml @ 75 mls/hr IV . [id number] KADEEM with Sodium Bicarb (1 Meq/ml) 150 ml Rx#:[id number] propofoL 1,000 mg In 147.358 76.185 Empty Bag 1 bag @ 15 MCG/ KG/MIN 5.307 mls/hr IV . [id number] KADEEM Rx#:[id number] Tube Feeding 60 190 20 Other 30 90 Output: Urine 1035 585 50 Other: Voiding Method Indwelling Catheter Indwelling Catheter ABP, PAP, CO, CI - Last Documented Arterial Blood Pressure 177/80 - Labs CBC & Chem 7: 03/04/24 04:30 03/04/24 04:30 Labs: Abnormal Lab Results - Last 24 Hours (Table) 03/03/24 03/03/24 03/03/24 Range/Units 05:01 07:41 12:03 RBC (3.80-5.40) m/uL Hgb (11.4-16.0) gm/dL Hct (34.0-46.0) % Lymphocytes # (1.0-4.8) k/uL ABG pH (7.35-7.45) ABG pO2 (83-108) mmHg ABG HCO3 (21-25) mmol/L ABG Total CO2 (19-24) mmol/L ABG O2 Saturation (94-97) % Sodium (137-145) mmol/L Potassium (3.5-5.1) mmol/L Glucose (74-99) mg/dL POC Glucose (mg/dL) 118 H (70-110) mg/dL Plasma Lactic Acid Zane 4.4 H* (0.7-2.0) mmol/L Calcium (8.4-10.2) mg/dL Vitamin B12 1276.0 H (200.0-944.0) pg/mL 03/03/24 03/03/24 03/04/24 Range/Units 17:28 23:45 04:30 RBC 3.39 L (3.80-5.40) m/uL Hgb 10.9 L (11.4-16.0) gm/dL Hct 33.3 L (34.0-46.0) % Lymphocytes # 0.8 L (1.0-4.8) k/uL ABG pH (7.35-7.45) ABG pO2 (83-108) mmHg ABG HCO3 (21-25) mmol/L ABG Total CO2 (19-24) mmol/L ABG O2 Saturation (94-97) % Sodium (137-145) mmol/L Potassium (3.5-5.1) mmol/L Glucose (74-99) mg/dL POC Glucose (mg/dL) 115 H 160 H (70-110) mg/dL Plasma Lactic Acid Zane (0.7-2.0) mmol/L Calcium (8.4-10.2) mg/dL Vitamin B12 (200.0-944.0) pg/mL 03/04/24 03/04/24 03/04/24 Range/Units 04:30 05:06 06:16 RBC (3.80-5.40) m/uL Hgb (11.4-16.0) gm/dL Hct (34.0-46.0) % Lymphocytes # (1.0-4.8) k/uL ABG pH 7.56 H* (7.35-7.45) ABG pO2 111 H (83-108) mmHg ABG HCO3 31 H (21-25) mmol/L ABG Total CO2 32 H (19-24) mmol/L ABG O2 Saturation 99.0 H (94-97) % Sodium 134 L (137-145) mmol/L Potassium 2.8 L (3.5-5.1) mmol/L Glucose 157 H (74-99) mg/dL POC Glucose (mg/dL) 160 H (70-110) mg/dL Plasma Lactic Acid Zane (0.7-2.0) mmol/L Calcium 7.0 L (8.4-10.2) mg/dL Vitamin B12 (200.0-944.0) pg/mL
[2024-03-04] MEDS: hydrALAZINE HCL 20 MG/ML 1 ML VIAL IVP PRN (09:50)
[2024-03-04] MEDS: SODIUM CHLORIDE 0.9% 1,000 ML IV SCH (09:50)
[2024-03-04 11:33] LABS: Glucose,Whole Blood 164 mg/dL (70-110)
--- NOTE | 2024-03-04 12:20 | P.PN ---
Subjective Progress Note Date: 03/04/24 Hospital course Patient is a 63-year-old female apparently with alcohol abuse and polysubstance abuse is brought to the emergency department via EMS for cardiac arrest. Patient is mechanically ventilated so history is obtained from the ER note as well as by talking to Dr. Munoz. Apparently patient lives in an apartment with 2 people who called police after she was unresponsive for about 20 minutes before the EMS arrived. Patient was found to be in PEA and was given 1 dose of epinephrine and was intubated. They were able to achieve ROSC. Patient received an additional 2 doses of epinephrine while in transit to ED. Patient is currently mechanically ventilated on control assist with settings of respiratory rate of 20, tidal volume 400, FiO2 50 and PEEP of 5. Patient is currently on propofol drip and vasopressors. Initial laboratory evaluation WBC 5.5, hemoglobin 9.8, hematocrit 33.3, MCV 1 11.5, platelet count 251, PT 11.8, INR 1.1, APTT 38.1,. Blood gas show pH of 7.06, pCO2 40, HCO3 11,. Sodium 140, potassium 4.3, chloride 109, bicarb 6, anion gap 25, BUN 18, creatinine 0.96, EGFR 63, glucose 157, lactic acid 13.2, calcium 8.2, AST 197, ALT 48, albumin 3.3, troponin less than 0.012. Vitals on arrival with a heart rate of 91, respiratory rate 20, blood pressure 61/40, oxygen 100% saturation with mechanical isolation. Urinalysis negative. Urine toxicology is negative Serum alcohol 351 Chest x-ray done in ED interpreted independently shows small left pleural effusion Brain CT done in the ED shows no acute intracranial defects or mass. EKG done in the ED interpreted apparently shows sinus rhythm with occasional ectopic premature complexes Subjective: Patient seen and examined at bedside. Currently sedated on mechanical ventilation. Spiked fevers overnight and initiated on tylenol PRN, do not suspect infx but instead neurogenic fevers. Pertinent positives and negatives as discussed above, a complete review of systems was performed and all other systems are negative. Vitals: Signs Reviewed Physical Exam: General: sedated, mechanical respirator Derm: warm, dry, intact Head: atraumatic, normocephalic, symmetric Eyes: EOMI, anicteric sclera Mouth: no lip lesion, mucus membranes moist Cardiovascular: S1 S2 reg, no murmur, rubs, or gallops Lungs: CTA bilateral, no rhonchi, no rales, no accessory muscle use Abdominal: soft, non-tender to palpataion, no appreciable organomegaly Extremities: no gross muscle atrophy, no edema, no contractures Neuro: Alert, Oriented, CNII-XII grossly intact, gait normal Psych: well appearing, appropriate affect Data Received Today: Pertinent Labs: CO2 6, anion gap 25, lactic acid 4.4, ABG 7.33/24/194, Hgb 9.8 Imaging: CXR Assessment/Plan: This is a 63-year-old female with a history of alcohol abuse and polysubstance abuse who is brought to the ER for out of hospital cardiac arrest. #Cardiac arrest outside hospital #Anoxic Brain Injury #Neurogenic Fevers #Alcohol intoxication Patient is currently intubated and mechanically supported on control assist with settings of respiratory rate of 20, tidal volume 400, FiO2 50 and PEEP of 5. Patient is currently on propofol drip, assess sedation holiday today Maintain a MAP of more than equal to 65 Levophed drip discontinued Chest x-ray done in ED interpreted independently shows small left pleural effusion Brain CT done in the ER shows no acute intracranial defects or mass. EKG done in the ER interpreted apparently shows sinus rhythm with occasional ectopic premature complexes Continue monitor vital signs Strict I's and O's Order TSH, vitamin B12 Order IV thiamine 100 mg IVP daily Placed on CIWA protocol, Ativan as per protocol CBC in a.m. Neurochecks and seizure precautions Resume home gabapentin Neurology has been consulted, started on keppra #Anion gap metabolic acidosis with superimposed metabolic alkalosis secondary to lactic acidosis and alcoholic ketoacidosis # Hypovolemic shock, resolved Blood gas show pH of 7.06, pCO2 40, HCO3 11 Sodium 140, potassium 4.3, chloride 109, bicarb 6, anion gap 25 Lactic acid 13.2 Patient is status post 2 sodium bicarb infusions in the ED Continue with bicarb drip running at 75 cc/h Repeat ABG in a.m. Recheck lactic acid in a.m. #Hyperglycemia Accu-Cheks and sliding scale insulin Order HbA1c #Alcohol associated transaminitis AST 197, ALT 48 Continue monitor CMP CMP in a.m. #Macrocytic anemia likely in the setting of alcohol abuse Unknown Hb baseline Hemoglobin 9.8, MCV heart 11.5, Check vitamin B12 and RBC folate Iron profile ordered DVT prophylaxis: Lovenox 40 mg subcu daily GI prophylaxis: IV Protonix 40 mg once daily F: IV normal saline at 75 cc/h E: Replete as needed N: NPO A: Ambulatory at baseline at home DVT ppx: Lovenox 40 SQ daily Code status: Full code Anticipated discharge place: Pending clinical course Anticipated discharge time: Pending clinical course Dictation was produced using [employer] dictation software. please excuse any grammatical, word or spelling errors. Objective - Vital Signs Vital signs: Vital Signs Temp 99.3 F 03/04/24 12:00 Pulse 100 03/04/24 12:00 Resp 34 H 03/04/24 12:00 BP 161/79 03/03/24 21:00 Pulse Ox 99 03/04/24 12:00 FiO2 35 03/04/24 12:00 Intake & Output 03/03/24 03/04/24 03/04/24 18:59 06:59 18:59 Intake Total 6182.081 2590.185 688 Output Total 1035 585 735 Balance -2.642 891.185 -47 Weight 58.967 kg 58.1 kg Intake: IV 570 1020 480 Dextrose 5% in Water 1, 450 900 150 000 ml @ 75 mls/hr IV . [id number] KADEEM with Sodium Bicarb (1 Meq/ml) 150 ml Rx#:[id number] KVO 120 120 30 Sodium Chloride 0.9% 1, 300 000 ml @ 75 mls/hr IV . [id number] KADEEM Rx#:[id number] Intake, IV Titration 372.358 176.185 Amount Dextrose 5% in Water 1, 225 000 ml @ 75 mls/hr IV . [id number] KADEEM with Sodium Bicarb (1 Meq/ml) 150 ml Rx#:[id number] propofoL 1,000 mg In 147.358 176.185 Empty Bag 1 bag @ 15 MCG/ KG/MIN 5.307 mls/hr IV . [id number] KADEEM Rx#:[id number] Tube Feeding 60 190 148 Other 30 90 60 Output: Urine 1035 585 735 Other: Voiding Method Indwelling Catheter Indwelling Catheter Indwelling Catheter ABP, PAP, CO, CI - Last Documented Arterial Blood Pressure 113/58 - Labs CBC & Chem 7: 03/04/24 04:30 03/04/24 04:30 Labs: Abnormal Lab Results - Last 24 Hours (Table) 03/03/24 03/03/24 03/04/24 Range/Units 17:28 23:45 04:30 RBC 3.39 L (3.80-5.40) m/uL Hgb 10.9 L (11.4-16.0) gm/dL Hct 33.3 L (34.0-46.0) % Lymphocytes # 0.8 L (1.0-4.8) k/uL ABG pH (7.35-7.45) ABG pO2 (83-108) mmHg ABG HCO3 (21-25) mmol/L ABG Total CO2 (19-24) mmol/L ABG O2 Saturation (94-97) % Sodium (137-145) mmol/L Potassium (3.5-5.1) mmol/L Glucose (74-99) mg/dL POC Glucose (mg/dL) 115 H 160 H (70-110) mg/dL Calcium (8.4-10.2) mg/dL 03/04/24 03/04/24 03/04/24 Range/Units 04:30 05:06 06:16 RBC (3.80-5.40) m/uL Hgb (11.4-16.0) gm/dL Hct (34.0-46.0) % Lymphocytes # (1.0-4.8) k/uL ABG pH 7.56 H* (7.35-7.45) ABG pO2 111 H (83-108) mmHg ABG HCO3 31 H (21-25) mmol/L ABG Total CO2 32 H (19-24) mmol/L ABG O2 Saturation 99.0 H (94-97) % Sodium 134 L (137-145) mmol/L Potassium 2.8 L (3.5-5.1) mmol/L Glucose 157 H (74-99) mg/dL POC Glucose (mg/dL) 160 H (70-110) mg/dL Calcium 7.0 L (8.4-10.2) mg/dL 03/04/24 Range/Units 11:32 RBC (3.80-5.40) m/uL Hgb (11.4-16.0) gm/dL Hct (34.0-46.0) % Lymphocytes # (1.0-4.8) k/uL ABG pH (7.35-7.45) ABG pO2 (83-108) mmHg ABG HCO3 (21-25) mmol/L ABG Total CO2 (19-24) mmol/L ABG O2 Saturation (94-97) % Sodium (137-145) mmol/L Potassium (3.5-5.1) mmol/L Glucose (74-99) mg/dL POC Glucose (mg/dL) 164 H (70-110) mg/dL Calcium (8.4-10.2) mg/dL
--- NOTE | 2024-03-04 15:24 | CT ---
EXAMINATION TYPE: CT brain wo con DATE OF EXAM: 03/04/2024 2:53 PM COMPARISON: CT study 03/03/2024.. CLINICAL INDICATION: Female, 63 years old with history of CARDIAC ARREST, f/u cardiac arrest TECHNIQUE: Brain: Axial CT images of the brain were obtained with coronal and sagittal reformats created and rev iewed. Contrast used: None. Oral contrast used: None. CT DLP: 1169.1 mGycm, Automated exposure control for dose reduction was used. FINDINGS: Brain: Extra-axial spaces: No abnormal extra-axial fluid collections. Ventricular system: Dilatation in proportion to cerebral atrophy. Cerebral parenchyma: No acute intraparenchymal hemorrhage or mass effect. Patchy periventricular sub cortical white matter hypoattenuation likely reflecting chronic microvascular ischemia. Cerebellum: Unremarkable. Mass effect: No evidence of midline shift. Intracranial vasculature: unremarkable Soft tissues: Normal. Partially visualized endotracheal tube. Calvarium/osseous structures: No depressed skull fracture. Paranasal sinuses and mastoid air cells: Mild scattered paranasal sinus disease. Visualized orbits: Orbital contents are intact. IMPRESSION: No acute intracranial abnormality. If there is continued clinical concern for intracranial infarction , MRI could be obtained for further evaluation. [facility], , 03/04/2024 3:22 PM
[2024-03-04 17:26] LABS: Glucose,Whole Blood 148 mg/dL (70-110)
[2024-03-04] MEDS: Lacosamide IV (ages 17+ yrs) 200 MG/20 ML ML IVP SCH (17:31)
[2024-03-04] MEDS: levETIRAcetam IV 500 MG/5 ML VIAL IVP SCH (20:33)
--- NOTE | 2024-03-04 21:54 | P.PN ---
Subjective Progress Note Date: 03/04/24 Patient was seen for a follow-up. Patient's sister Xiomara was present today. She mentioned that on the day of admission, patient was talking to her mom saying "I just want to ". She wanted to kill herself. But she has said those statements in the past as well. At around 11 AM, she was talking to her mother when she suddenly stopped talking and fell off the bed. Her eyes rolled up and she could not find the pulse and she was not breathing. That's when they called EMS. She mentioned that patient has drank almost her whole life. She would drink up to a fifth of vodka a day. She used to drink beer and wine. About couple years ago, patient was placed in hospice because of severe alcoholism and she stayed there for 1 year. About a year ago, she came out of the hospice candidate. Reading alcohol almost 4 year. Then she started drinking again. Patient lives with her mother, who is 90 years old and an elder sister therefore nobody knows how much she is drinking. Patient's sister believes that she hides it. She was recently admitted to [facility], after she ingested an old bottle of morphine along with booze, and was hospitalized but she was very combative at that time. Patient's sister also mentions that patient has been diagnosed with cirrhosis. She has also smoked 1 pack per day "most of her life". Patient's sister states that she knew that this was coming, due to patient's habits as above. Objective - Vital Signs Vital signs: Vital Signs Temp 99.3 F 03/04/24 12:00 Pulse 98 03/04/24 13:00 Resp 33 H 03/04/24 13:00 BP 161/79 03/03/24 21:00 Pulse Ox 99 03/04/24 13:00 FiO2 35 03/04/24 12:00 Intake & Output 03/03/24 03/04/24 03/04/24 18:59 06:59 18:59 Intake Total 5165.569 5708.185 700.177 Output Total 1035 585 735 Balance -2.642 891.185 -34.823 Weight 58.967 kg 58.1 kg Intake: IV 570 1020 480 Dextrose 5% in Water 1, 450 900 150 000 ml @ 75 mls/hr IV . [id number] KADEEM with Sodium Bicarb (1 Meq/ml) 150 ml Rx#:[id number] KVO 120 120 30 Sodium Chloride 0.9% 1, 300 000 ml @ 75 mls/hr IV . [id number] KADEEM Rx#:[id number] Intake, IV Titration 372.358 176.185 12.177 Amount Dextrose 5% in Water 1, 225 000 ml @ 75 mls/hr IV . [id number] KADEEM with Sodium Bicarb (1 Meq/ml) 150 ml Rx#:[id number] propofoL 1,000 mg In 147.358 176.185 12.177 Empty Bag 1 bag @ 15 MCG/ KG/MIN 5.307 mls/hr IV . [id number] KADEEM Rx#:[id number] Tube Feeding 60 190 148 Other 30 90 60 Output: Urine 1035 585 735 Other: Voiding Method Indwelling Catheter Indwelling Catheter Indwelling Catheter ABP, PAP, CO, CI - Last Documented Arterial Blood Pressure 98/53 - Exam Patient at present is intubated, sedated on propofol 30 mcg/kg per minute. Patient is comatose, GCS of 3. Patient is having some low amplitude twitching of her eyelids, intrinsic muscles of the hands and some toe movement which are asynchronous,, somewhat almost like fasciculations. Pupils are about 4 mm, minimally reacting bilaterally. Oculocephalics are absent. Corneals absent. Patient is breathing over the ventilator. Patient has no gag or cough. - Labs CBC & Chem 7: 03/04/24 04:30 03/04/24 12:00 Labs: Abnormal Lab Results - Last 24 Hours (Table) 03/03/24 03/03/24 03/04/24 Range/Units 17:28 23:45 04:30 RBC 3.39 L (3.80-5.40) m/uL Hgb 10.9 L (11.4-16.0) gm/dL Hct 33.3 L (34.0-46.0) % Lymphocytes # 0.8 L (1.0-4.8) k/uL ABG pH (7.35-7.45) ABG pO2 (83-108) mmHg ABG HCO3 (21-25) mmol/L ABG Total CO2 (19-24) mmol/L ABG O2 Saturation (94-97) % Sodium (137-145) mmol/L Potassium (3.5-5.1) mmol/L Glucose (74-99) mg/dL POC Glucose (mg/dL) 115 H 160 H (70-110) mg/dL Calcium (8.4-10.2) mg/dL 03/04/24 03/04/24 03/04/24 Range/Units 04:30 05:06 06:16 RBC (3.80-5.40) m/uL Hgb (11.4-16.0) gm/dL Hct (34.0-46.0) % Lymphocytes # (1.0-4.8) k/uL ABG pH 7.56 H* (7.35-7.45) ABG pO2 111 H (83-108) mmHg ABG HCO3 31 H (21-25) mmol/L ABG Total CO2 32 H (19-24) mmol/L ABG O2 Saturation 99.0 H (94-97) % Sodium 134 L (137-145) mmol/L Potassium 2.8 L (3.5-5.1) mmol/L Glucose 157 H (74-99) mg/dL POC Glucose (mg/dL) 160 H (70-110) mg/dL Calcium 7.0 L (8.4-10.2) mg/dL 03/04/24 Range/Units 11:32 RBC (3.80-5.40) m/uL Hgb (11.4-16.0) gm/dL Hct (34.0-46.0) % Lymphocytes # (1.0-4.8) k/uL ABG pH (7.35-7.45) ABG pO2 (83-108) mmHg ABG HCO3 (21-25) mmol/L ABG Total CO2 (19-24) mmol/L ABG O2 Saturation (94-97) % Sodium (137-145) mmol/L Potassium (3.5-5.1) mmol/L Glucose (74-99) mg/dL POC Glucose (mg/dL) 164 H (70-110) mg/dL Calcium (8.4-10.2) mg/dL Assessment and Plan Assessment: * Witnessed, out of hospital cardiac arrest with prolonged downtime of approximately 35 minutes, as per EMS. * Acute respiratory failure, on mechanical ventilation * Anoxic encephalopathy due to above. * Abnormal EEG with burst suppressed pattern due to above. * Arrhythmic twitching of the eyes, hands and feet, rule out status epilepticus. * Alcohol intoxication * Chronic alcoholism * Macrocytosis due to above * Elevated liver enzymes * Lactic acidosis * Anemia * Tobacco use Plan: * Patient has a cardiac arrest with prolonged downtime. Patient showing signs of anoxic encephalopathy. * Patient's neurological examination seems to have gotten worse. * Stat CT head rule out cerebral edema, herniation. * EEG 03/03/2024 was abnormal due to presence of burst suppressed pattern, with bursts consisting of high amplitude dysrhythmic sharp and some slow waves lasting for 1 second followed by periods of suppression lasting for 6-8 seconds. This pattern can be seen with severe anoxic encephalopathy. Clin ical correlation is recommended. * Patient is having some arrhythmic eye twitches. Increase Keppra to 1500 mg twice a day. Start Vimpat 200 mg IV twice a day. * Repeat stat EEG in the morning. * Other medical management as per IM and other specialties on board. * Discussed with patient's sister and nursing staff in detail.
[2024-03-04 23:45] LABS: Glucose,Whole Blood 126 mg/dL (70-110)
[2024-03-04] MEDS: FUROSEMIDE 10 MG/ML 4 ML VIAL IV STA (23:46)
[2024-03-05 04:40] LABS: Basophils % (A) 0 %; Eosinophils # (A) 0.1 k/uL (0-0.7); Eosinophils % (A) 1 %; HCT 29.4 % (34.0-46.0); HGB 9.7 gm/dL (11.4-16.0); Lymphocytes # (A) 1.1 k/uL (1.0-4.8); Lymphocytes % (A) 13 %; MCH 32.2 pg (25.0-35.0); MCV 97.6 fL (80.0-100.0); Mean Platelet Volume 8.8; Monocytes # (A) 0.2 k/uL (0-1.0); Monocytes % (A) 3 %; Neutrophils # (A) 6.9 k/uL (1.3-7.7); Neutrophils % (A) 83 %; Platelet Count 156 k/uL (150-450); RBC 3.01 m/uL (3.80-5.40); RDW 14.4 % (11.5-15.5); WBC 8.3 k/uL (3.8-10.6)
[2024-03-05 04:56] LABS: African American GFR (CKD) >90 (>60 ml/min/1.73 sqM); Anion Gap 5 mmol/L; Blood Urea Nitrogen 16 mg/dL (7-17); Calcium 6.7 mg/dL (8.4-10.2); Carbon Dioxide 31 mmol/L (22-30); Chloride 95 mmol/L (98-107); Glucose 108 mg/dL (74-99); Non-African American GFR(CKD) 84 (>60 ml/min/1.73 sqM); Potassium 3.3 mmol/L (3.5-5.1); Sodium 131 mmol/L (137-145)
[2024-03-05 06:17] LABS: ABG HCO3 30 mmol/L (21-25); ABG Oxygen Saturation 94.4 % (94-97); ABG PCO2 35 mmHg (35-45); ABG PH 7.54 (7.35-7.45); ABG PO2 66 mmHg (83-108); ABG TCO2 31 mmol/L (19-24); Allen Test Performed? Yes
--- NOTE | 2024-03-05 06:51 | XR ---
EXAMINATION TYPE: XR chest 1V portable DATE OF EXAM: 03/05/2024 COMPARISON: 03/04/2024 CLINICAL INDICATION: Female, 63 years old with history of mechanical ventilation; TECHNIQUE: Single frontal view of the chest is obtained. FINDINGS: ET tube is 3.5 cm above the elba. There is an NG tube within the stomach. The right centr al venous catheter tip is in the SVC/RA junction. There is no change in the bandlike opacity in the right middle lower lung zone likely indicating mild atelectasis. There are stable tiny bilateral pleural effusions. There is no pneumothorax. The heart and pulmonary vasculature are normal. The osseous structures are intact. IMPRESSION: 1. ET tube 3.5 cm above the elba. NG tube within the stomach. No change in the right central venous catheter. 2. Stable tiny bilateral pleural effusions. 3. Stable right middle or right lower lobe atelectasis. [facility], , 03/05/2024 6:49 AM
[2024-03-05] MEDS: POTASSIUM BICARBONATE/CIT AC 20 MEQ TABLET.EFF NG-TUBE SCH ×2 (08:24→21:32)
--- NOTE | 2024-03-05 10:30 | P.PN ---
Subjective Progress Note Date: 03/05/24 03/05/2024: Patient was seen for a follow-up. Patient is currently on propofol 20 mcg/kg/min. When the sedation was discontinued yesterday, patient started twitching, with posturing got worse. Patient was started on Vimpat last night, and increase the dose of Keppra. At present I do not see any twitching of her extremities. Sometimes she just sporadically flexes her body like coughing. However she has no gag or cough. 03/04/2024: Patient was seen for a follow-up. Patient's sister Xiomara was present today. She mentioned that on the day of admission, patient was talking to her mom saying "I just want to ". She wanted to kill herself. But she has said those statements in the past as well. At around 11 AM, she was talking to her mother when she suddenly stopped talking and fell off the bed. Her eyes rolled up and she could not find the pulse and she was not breathing. That's when they called EMS. She mentioned that patient has drank almost her whole life. She would drink up to a fifth of vodka a day. She used to drink beer and wine. About couple years ago, patient was placed in hospice because of severe alcoholism and she stayed there for 1 year. About a year ago, she came out of the hospice candidate. Reading alcohol almost 4 year. Then she started drinking again. Patient lives with her mother, who is 90 years old and an elder sister therefore nobody knows how much she is drinking. Patient's sister believes that she hides it. She was recently admitted to [facility], after she ingested an old bottle of morphine along with booze, and was hospitalized but she was very combative at that time. Patient's sister also mentions that patient has been diagnosed with cirrhosis. She has also smoked 1 pack per day "most of her life". Patient's sister states that she knew that this was coming, due to patient's habits as above. Objective - Vital Signs Vital signs: Vital Signs Temp 100.2 F H 03/05/24 09:00 Pulse 88 03/05/24 09:00 Resp 21 03/05/24 09:00 BP 111/62 03/04/24 19:00 Pulse Ox 95 03/05/24 09:00 FiO2 35 01/26/25 08:00 Intake & Output 03/04/24 03/05/24 03/05/24 18:59 06:59 18:59 Intake Total 2440.316 0686.792 336 Output Total 1170 950 280 Balance 182.791 423.792 56 Weight 53.8 kg Intake: IV 930 900 225 Dextrose 5% in Water 1, 150 000 ml @ 75 mls/hr IV . [id number] KADEEM with Sodium Bicarb (1 Meq/ml) 150 ml Rx#:[id number] KVO 30 Sodium Chloride 0.9% 1, 750 900 225 000 ml @ 75 mls/hr IV . [id number] KADEEM Rx#:[id number] Intake, IV Titration 22.791 59.792 Amount propofoL 1,000 mg In 22.791 59.792 Empty Bag 1 bag @ 15 MCG/ KG/MIN 5.307 mls/hr IV . [id number] KADEEM Rx#:[id number] Tube Feeding 310 324 81 Other 90 90 30 Output: Urine 1170 950 280 Other: Voiding Method Indwelling Catheter Indwelling Catheter ABP, PAP, CO, CI - Last Documented Arterial Blood Pressure 122/59 - Exam Patient at present is intubated, sedated on propofol 20 mcg/kg per minute. Patient is comatose, GCS of 3. Pupils are 4 mm, nonreactive to light or accommodation. Oculocephalics are absent. Corneal reflex absent. Patient has no gag or cough. No twitching no constance of the facial region, eyes, hands or feet. Occasionally patient flexes her torso like coughing. - Labs CBC & Chem 7: 03/05/24 04:31 03/05/24 04:31 Labs: Abnormal Lab Results - Last 24 Hours (Table) 03/04/24 03/04/24 03/04/24 Range/Units 11:32 17:24 23:43 RBC (3.80-5.40) m/uL Hgb (11.4-16.0) gm/dL Hct (34.0-46.0) % ABG pH (7.35-7.45) ABG pO2 (83-108) mmHg ABG HCO3 (21-25) mmol/L ABG Total CO2 (19-24) mmol/L Hemoglobin (11.4-16.0) gm/dL Sodium (137-145) mmol/L Potassium (3.5-5.1) mmol/L Chloride (98-107) mmol/L Carbon Dioxide (22-30) mmol/L Glucose (74-99) mg/dL POC Glucose (mg/dL) 164 H 148 H 126 H (70-110) mg/dL Calcium (8.4-10.2) mg/dL 03/05/24 03/05/24 03/05/24 Range/Units 04:31 04:31 06:12 RBC 3.01 L (3.80-5.40) m/uL Hgb 9.7 L (11.4-16.0) gm/dL Hct 29.4 L (34.0-46.0) % ABG pH 7.54 H (7.35-7.45) ABG pO2 66 L (83-108) mmHg ABG HCO3 30 H (21-25) mmol/L ABG Total CO2 31 H (19-24) mmol/L Hemoglobin 10.0 L (11.4-16.0) gm/dL Sodium 131 L (137-145) mmol/L Potassium 3.3 L (3.5-5.1) mmol/L Chloride 95 L (98-107) mmol/L Carbon Dioxide 31 H (22-30) mmol/L Glucose 108 H (74-99) mg/dL POC Glucose (mg/dL) (70-110) mg/dL Calcium 6.7 L (8.4-10.2) mg/dL Assessment and Plan Assessment: * Witnessed, out of hospital cardiac arrest with prolonged downtime of approximately 35 minutes, as per EMS. * Acute respiratory failure, on mechanical ventilation * Anoxic encephalopathy due to above, severe in degree. * Abnormal EEG with burst suppressed pattern due to above. * Arrhythmic twitching of the eyes, hands and feet, rule out status epilepticus. Now twitching resolved. * Alcohol intoxication * Chronic alcoholism * Macrocytosis due to above * Elevated liver enzymes * Lactic acidosis * Anemia * Tobacco use Plan: * Patient has a cardiac arrest with prolonged downtime. Patient showing signs of anoxic encephalopathy. Her clinical examination seems to be getting worse. At present patient has nonreactive pupil, absent oculocephalics which were present yesterday. * No obvious seizure-like activity noticed. Patient currently on propofol 20 mcg/kg/min. We will stop propofol and see how patient reacts. * Repeat CT head without contrast 03/04/2024 reported no acute intracranial abnormality. MRI recommended if clinically indicated. I personally reviewed CT head, and there is evidence of at least mild degree of generalized cerebral edema, with loss of ji-white differentiation and some effacement of the sulci, and slight effacement of the lateral ventricles. However no herniation seen. * EEG 03/03/2024 was abnormal due to presence of burst suppressed pattern, with bursts consisting of high amplitude dysrhythmic sharp and some slow waves lasting for 1 second followed by periods of suppression lasting for 6-8 seco nds. This pattern can be seen with severe anoxic encephalopathy. Clinical correlation is recommended. * Patient currently on Keppra to 1500 mg twice a day, and Vimpat 200 mg IV twice a day. * Other medical management as per IM and other specialties on board. * Discussed with nursing staff in detail. Addendum: At 10:15 AM, we turned off the propofol sedation completely. About 40 minutes later, there was no changes in the mentation. No seizure-like activity. Patient is about 55 hours postcardiac arrest, with no clinical improvement. Patient continues to be deeply comatose, and the examination has got further worse. This pertains very poor prognosis. I discussed with patient's sister Paz, updated about patient's clinical condition. Repeat EEG was discussed, but based upon her clinical examination, will not change the management. Patient's sister will discuss with her family members, and if they like, will order EEG for the morning. Dr. Jay Juarez to resume neurology service in the morning.
--- NOTE | 2024-03-05 10:43 | P.PN ---
Subjective Progress Note Date: 03/05/24 Principal diagnosis: Cardiac arrest. Progress Note Date: 03/04/24 Patient is a 63-year-old female with alcohol abuse and polysubstance abuse and was brought into the emergency department via EMS for cardiac arrest at 4 AM today.. Patient was intubated in the field and mechanically ventilated in our facility. Patient apparently lives in an apartment with 2 people and witnessed cardiac arrest. Patient was down for 20 minutes before EMS arrived. Patient was found to be in PEA was given 1 dose of epinephrine and intubated. They were able to achieve ROSC and gave 2 doses of epinephrine while in transit to our ED. Patient's mechanical ventilator settings on admission were assist-control with a rate of 20, tidal volume 400, FiO2 50 and a PEEP of 5. Patient was sedated and vasopressors were required for hemodynamic instability. Central line was also placed in the right internal jugular at our facility. Imaging on admission shows trace left pleural effusion, with endotracheal tube terminating at 4.7 cm above the elba, enteric feeding tube seen and in place, and right IJ catheter seen and in place. EKG done in the ED interpreted apparent ly shows sinus rhythm with occasional ectopic premature complexes. Brain CT done in the ED shows no acute intracranial defects or mass. Initial labs on admission were WBC 5.5, hemoglobin 9.8, hematocrit 33.3, MCV 111.5, platelet count 251, PT 11.8, INR 1.1, APTT 38.1,. Blood gas show pH of 7.06, pCO2 40, HCO3 11,. Sodium 140, potassium 4.3, chloride 109, bicarb 6, anion gap 25, BUN 18, creatinine 0.96, EGFR 63, glucose 157, lactic acid 13.2, calcium 8.2, AST 197, ALT 48, albumin 3.3, troponin less than 0.012. Currently in the ICU, patient is on propofol at 40mcg/kg/min and D5W 3A bicarb drip at 75ml//hr. Patient's mechanical ventilator settings on admission were assist-control with a rate of 20, tidal volume 400, FiO2 50 and a PEEP of 5. Repeat blood gases show pO2 194, pCO2 24, pH 7.33. Repeat chest x-ray today at 5 AM shows trace left pleural effusion with right lower lung linear scarring and/or atelectasis, and has no change from initial x-ray. On NPO. ERIKA balance +1 L with urine output 1.2 L. 03/04/2024 patient seen and examined at bedside. Patient's mechanical ventilator settings on admission were assist-control with a rate of 20, tidal volume 400, FiO2 35 and a PEEP of 5. Propofol running at 40 mics per kilogram per minute. Enteral feeding vital AF 1.2 running at a rate of 20 mL/h. ABG today showed PaO2 111, pCO2 35, pH 7.56. Labs today showed WBC 8.5, hemoglobin 10.9, platelet count 1 99,000, sodium 134, potassium 2.8, chloride 98, bicarb 28, BUN 15, creatinine 0.78, glucose 157, calcium 7. Chest x-ray today showed no significant interval change in mid bandlike atelectasis seen in the right middle or lower lobe. ET tube seen at 5.1 cm above the elba in place. EEG showed abnormal EEG the presence of a burst suppression pattern as described seen with severe anoxic encephalopathy. Progress note dated March 05, 2024. 63-year-old female who has a history of a [id number] cardiopulmonary arrest. She was resuscitated, and brought to the emergency department, and transferred to the intensive care unit. The patient remains on mechanical venti lation, with a volume assist-control mode, rate 20, tidal volume 400, FiO2 35%, PEEP of 5. Blood gases show a pO2 of 66, pCO2 of 35, the pH is 7.54. She is on propofol at 20 mcg/kg/min, saline at 75 cc an hour, and vital AF at goal which is 27 cc an hour. Repeat brain CT was negative. Neurology has been consulted. EEG showed diffuse slowing consistent with anoxic/metabolic encephalopathy. The patient did poorly with her daily interruption of sedation yesterday. Current labs include a white count 8.3, hemoglobin 9.7, hematocrit 29.4, platelet count 156,000. Sodium 131, potassium 3.3, chlorides 95, CO2 31, BUN 16, creatinine 0.76. Glucose 108. Calcium 6.7. Chest x-ray shows that the endotracheal tube is 3.5 cm above the elba. There is very small bilateral pleural effusions, and right middle lobe right lower lobe atelectasis. Objective - Vital Signs Vital signs: Vital Signs Temp 98.6 F 03/05/24 10:00 Pulse 77 03/05/24 10:00 Resp 20 03/05/24 10:00 BP 111/62 03/04/24 19:00 Pulse Ox 94 L 03/05/24 10:00 FiO2 35 03/05/24 08:00 Intake & Output 03/04/24 03/05/24 03/05/24 18:59 06:59 18:59 Intake Total 6667.677 0462.792 336 Output Total 1170 950 280 Balance 182.791 423.792 56 Weight 53.8 kg Intake: IV 930 900 225 Dextrose 5% in Water 1, 150 000 ml @ 75 mls/hr IV . [id number] KADEEM with Sodium Bicarb (1 Meq/ml) 150 ml Rx#:[id number] KVO 30 Sodium Chloride 0.9% 1, 750 900 225 000 ml @ 75 mls/hr IV . [id number] KADEEM Rx#:[id number] Intake, IV Titration 22.791 59.792 Amount propofoL 1,000 mg In 22.791 59.792 Empty Bag 1 bag @ 15 MCG/ KG/MIN 5.307 mls/hr IV . [id number] KADEEM Rx#:[id number] Tube Feeding 310 324 81 Other 90 90 30 Output: Urine 1170 950 280 Other: Voiding Method Indwelling Catheter Indwelling Catheter ABP, PAP, CO, CI - Last Documented Arterial Blood Pressure 91/47 - Exam No acute distress, sedated with propofol, with an orally placed endotracheal tube, and NG tube. HEENT examination is grossly unremarkable. Neck supple. Full range of motion. No adenopathy thyromegaly or neck vein distention. Cardiovascular examination reveals regular rhythm rate. S1-S2 normal. No S3 or S4. No discernible murmur noted. Heart sounds are distant. Lungs reveal mostly clear breath sounds. Mild bilateral rhonchi. No wheezes or crackles. Breath sounds are equal bilaterally. Abdomen soft with bowel sounds. No masses or tenderness. Extremities are intact. No cyanosis clubbing or edema. Skin is without rash or lesion. Neurologic examination is difficult to evaluate at this time. - Labs CBC & Chem 7: 03/05/24 04:31 03/05/24 04:31 Labs: Abnormal Lab Results - Last 24 Hours (Table) 03/04/24 03/04/24 03/04/24 Range/Units 11:32 17:24 23:43 RBC (3.80-5.40) m/uL Hgb (11.4-16.0) gm/dL Hct (34.0-46.0) % ABG pH (7.35-7.45) ABG pO2 (83-108) mmHg ABG HCO3 (21-25) mmol/L ABG Total CO2 (19-24) mmol/L Hemoglobin (11.4-16.0) gm/dL Sodium (137-145) mmol/L Potassium (3.5-5.1) mmol/L Chloride (98-107) mmol/L Carbon Dioxide (22-30) mmol/L Glucose (74-99) mg/dL POC Glucose (mg/dL) 164 H 148 H 126 H (70-110) mg/dL Calcium (8.4-10.2) mg/dL 03/05/24 03/05/24 03/05/24 Range/Units 04:31 04:31 06:12 RBC 3.01 L (3.80-5.40) m/uL Hgb 9.7 L (11.4-16.0) gm/dL Hct 29.4 L (34.0-46.0) % ABG pH 7.54 H (7.35-7.45) ABG pO2 66 L (83-108) mmHg ABG HCO3 30 H (21-25) mmol/L ABG Total CO2 31 H (19-24) mmol/L Hemoglobin 10.0 L (11.4-16.0) gm/dL Sodium 131 L (137-145) mmol/L Potassium 3.3 L (3.5-5.1) mmol/L Chloride 95 L (98-107) mmol/L Carbon Dioxide 31 H (22-30) mmol/L Glucose 108 H (74-99) mg/dL POC Glucose (mg/dL) (70-110) mg/dL Calcium 6.7 L (8.4-10.2) mg/dL Assessment and Plan Assessment: [id number]-[id number], cardiopulmonary arrest, with prolonged resuscitative phase. S/P intubation and ventilation, for respiratory failure. Probable anoxic brain injury. History of chronic alcohol abuse and alcohol intoxication. Anion gap metabolic acidosis, secondary to lactic acidemia, resolved. Combined respiratory and metabolic alkalosis. Alcohol-related transaminitis. Plan: Plan dated March 05, 2024. The patient is seen today in room 253. She remains on the ventilator. Blood gases show pO2 of 66, pCO2 of 35, pH is 7.54. Blood gases are consistent with combined metabolic and respiratory alkalosis. The patient remains on propofol at 20 mcg/kg/min, saline at 75 cc an hour, and vital AF at goal which is 27 cc an hour. The patient is a DO NOT RESUSCITATE patient. The brain CT which was repeated, it did not show anything acute. We will talk to the family today about possibility of comfort care. No additional recommendations are made. The patient did poorly during her daily interruption of sedation yesterday. Prognosis is poor. Time with Patient: Greater than 30
[2024-03-05] MEDS: IPRATROPIUM-ALBUTEROL 3 ML NEB INHALATION SCH (11:25)
[2024-03-05 11:30] LABS: Glucose,Whole Blood 117 mg/dL (70-110)
--- NOTE | 2024-03-05 12:02 | P.PN ---
Subjective Progress Note Date: 03/05/24 Hospital Course: Patient is a 63-year-old female apparently with alcohol abuse and polysubstance abuse is brought to the emergency department via EMS for cardiac arrest. Patient is mechanically ventilated so history is obtained from the ER note as well as by talking to Dr. Munoz. Apparently patient lives in an apartment with 2 people who called police after she was unresponsive for about 20 minutes before the EMS arrived. Patient was found to be in PEA and was given 1 dose of epinephrine and was intubated. They were able to achieve ROSC. Patient received an additional 2 doses of epinephrine while in transit to ED. Patient is currently mechanically ventilated on control assist with settings of respiratory rate of 20, tidal volume 400, FiO2 50 and PEEP of 5. Patient is currently on propofol drip and vasopressors. Initial laboratory evaluation WBC 5.5, hemoglobin 9.8, hematocrit 33.3, MCV 111.5, platelet count 251, PT 11.8, INR 1.1, APTT 38.1,. Blood gas show pH of 7.06, pCO2 40, HCO3 11,. Sodium 140, potassium 4.3, chloride 109, bicarb 6, anion gap 25, BUN 18, creatinine 0.96, EGFR 63, glucose 157, lactic acid 13.2, calcium 8.2, AST 197, ALT 48, albumin 3.3, troponin less than 0.012. Vitals on arrival with a heart rate of 91, respiratory rate 20, blood pressure 61/40, oxygen 100% saturation with mechanical isolation. Urinalysis negative. Urine toxicology is negative Serum alcohol 351 Chest x-ray done in ED interpreted independently shows small left pleural effusion Brain CT done in the ED shows no acute intracranial defects or mass. EKG done in the ED interpreted apparently shows sinus rhythm with occasional ectopic premature complexes Subjective: Patient seen and examined at bedside. Currently sedated on mechanical ventilation. Pertinent positives and negatives as discussed above, a complete review of s ystems was performed and all other systems are negative. Vitals: Signs Reviewed Physical Exam: General: sedated, mechanical respirator Derm: warm, dry, intact Head: atraumatic, normocephalic, symmetric Eyes: EOMI, anicteric sclera Mouth: no lip lesion, mucus membranes moist Cardiovascular: S1 S2 reg, no murmur, rubs, or gallops Lungs: CTA bilateral, no rhonchi, no rales, no accessory muscle use Abdominal: soft, non-tender to palpataion, no appreciable organomegaly Extremities: no gross muscle atrophy, no edema, no contractures Neuro: Alert, Oriented, CNII-XII grossly intact, gait normal Psych: well appearing, appropriate affect Data Received Today: Pertinent Labs: ABG 7.54/35/66, CO2 31, Hgb 9.7 Imaging: CXR independently interpreted displays Assessment/Plan: This is a 63-year-old female with a history of alcohol abuse and polysubstance abuse who is brought to the ER for out of hospital cardiac arrest. #Cardiac arrest outside hospital #Anoxic Brain Injury #Neurogenic Fevers #Alcohol intoxication # Anoxic encephalopathy Patient is currently intubated and mechanically supported on control assist with settings of respiratory rate of 20, tidal volume 400, FiO2 50 and PEEP of 5. Patient is currently on propofol drip, assess sedation holiday today Maintain a MAP of more than equal to 65 Levophed drip discontinued Chest x-ray done in ED interpreted independently shows small left pleural effusion Brain CT done in the ER shows no acute intracranial defects or mass. EKG done in the ER interpreted apparently shows sinus rhythm with occasional ectopic premature complexes Continue monitor vital signs Strict I's and O's Order TSH, vitamin B12 Order IV thiamine 100 mg IVP daily Placed on CIWA protocol, Ativan as per protocol CBC in a.m. Neurochecks and seizure precautions Continue with home gabapentin Neurology has been consulted, started on keppra and Vimpat Repeat EEG EEG 03/03/2024 was abnormal due to presence of burst suppressed pattern, with bursts consisting of high amplitude dysrhythmic sharp and some slow waves lasting for 1 second followed by periods of suppression lasting for 6-8 seconds. This pattern can be seen with severe anoxic encephalopathy. Goals of care to be discussed with family regarding comfort care. #Anion gap metabolic acidosis with superimposed metabolic alkalosis secondary to lactic acidosis and alcoholic ketoacidosis, result # Hypovolemic shock, resolved Blood gas show pH of 7.06, pCO2 40, HCO3 11 Sodium 140, potassium 4.3, chloride 109, bicarb 6, anion gap 25 Lactic acid 13.2 Patient is status post 2 sodium bicarb infusions in the ED Continue with bicarb drip running at 75 cc/h Repeat ABG in a.m. Recheck lactic acid in a.m. #Hyperglycemia Accu-Cheks and sliding scale insulin Order HbA1c #Alcohol associated transaminitis AST 197, ALT 48 Continue monitor CMP CMP in a.m. #Macrocytic anemia likely in the setting of alcohol abuse Unknown Hb baseline Hemoglobin 9.8, MCV heart 11.5, Check vitamin B12 and RBC folate Iron profile ordered DVT prophylaxis: Lovenox 40 mg subcu daily GI prophylaxis: IV Protonix 40 mg once daily F: IV normal saline at 75 cc/h E: Replete as needed N: NPO A: Ambulatory at baseline at home DVT ppx: Lovenox 40 SQ daily Code status: Full code Anticipated discharge place: Pending clinical course Anticipated discharge time: Pending clinical course Prognosis is poor. Dictation was produced using [employer] dictation software. please excuse any grammatical, word or spelling errors. I saw and evaluated the patient during the aguirre and critical portions of this encounter, and discussed the case in detail with the resident author of this note, I agree with the Assessment and Plan, and my changes, if any, are highlighted in blue. Objective - Vital Signs Vital signs: Vital Signs Temp 98.8 F 03/05/24 04:00 Pulse 84 03/05/24 06:00 Resp 22 03/05/24 06:00 BP 111/62 03/04/24 19:00 Pulse Ox 94 L 03/05/24 06:00 FiO2 35 03/05/24 04:00 Intake & Output 03/04/24 03/04/24 03/05/24 06:59 18:59 06:59 Intake Total 5682.644 1411.791 1373.792 Output Total 585 1170 950 Balance 891.185 182.791 423.792 Weight 58.1 kg 53.8 kg Intake: IV 1020 930 900 Dextrose 5% in Water 1, 900 150 000 ml @ 75 mls/hr IV . [id number] KADEEM with Sodium Bicarb (1 Meq/ml) 150 ml Rx#:[id number] KVO 120 30 Sodium Chloride 0.9% 1, 750 900 000 ml @ 75 mls/hr IV . [id number] KADEEM Rx#:[id number] Intake, IV Titration 176.185 22.791 59.792 Amount propofoL 1,000 mg In 176.185 22.791 59.792 Empty Bag 1 bag @ 15 MCG/ KG/MIN 5.307 mls/hr IV . [id number] [facility] Rx#:[id number] Tube Feeding 190 310 324 Other 90 90 90 Output: Urine 585 1170 950 Other: Voiding Method Indwelling Catheter Indwelling Catheter Indwelling Catheter ABP, PAP, CO, CI - Last Documented Arterial Blood Pressure 123/59 - Labs CBC & Chem 7: 03/05/24 04:31 03/05/24 04:31 Labs: Abnormal Lab Results - Last 24 Hours (Table) 03/04/24 03/04/24 03/04/24 Range/Units 11:32 17:24 23:43 RBC (3.80-5.40) m/uL Hgb (11.4-16.0) gm/dL Hct (34.0-46.0) % ABG pH (7.35-7.45) ABG pO2 (83-108) mmHg ABG HCO3 (21-25) mmol/L ABG Total CO2 (19-24) mmol/L Hemoglobin (11.4-16.0) gm/dL Sodium (137-145) mmol/L Potassium (3.5-5.1) mmol/L Chloride (98-107) mmol/L Carbon Dioxide (22-30) mmol/L Glucose (74-99) mg/dL POC Glucose (mg/dL) 164 H 148 H 126 H (70-110) mg/dL Calcium (8.4-10.2) mg/dL 03/05/24 03/05/24 03/05/24 Range/Units 04:31 04:31 06:12 RBC 3.01 L (3.80-5.40) m/uL Hgb 9.7 L (11.4-16.0) gm/dL Hct 29.4 L (34.0-46.0) % ABG pH 7.54 H (7.35-7.45) ABG pO2 66 L (83-108) mmHg ABG HCO3 30 H (21-25) mmol/L ABG Total CO2 31 H (19-24) mmol/L Hemoglobin 10.0 L (11.4-16.0) gm/dL Sodium 131 L (137-145) mmol/L Potassium 3.3 L (3.5-5.1) mmol/L Chloride 95 L (98-107) mmol/L Carbon Dioxide 31 H (22-30) mmol/L Glucose 108 H (74-99) mg/dL POC Glucose (mg/dL) (70-110) mg/dL Calcium 6.7 L (8.4-10.2) mg/dL
[2024-03-05 17:52] LABS: Glucose,Whole Blood 115 mg/dL (70-110)
[2024-03-05 23:04] LABS: Glucose,Whole Blood 118 mg/dL (70-110)
--- NOTE | 2024-03-06 01:06 | EEG ---
ELECTROENCEPHALOGRAM REPORT PREAMBLE: This is a 63-year-old female with cardiac arrest, and prolonged down time. She had some seizure-like activity, rule out status epilepticus. EEG FINDINGS: The recording starts and continues with presence of diffuse low-voltage fast frequency beta activity seen in most of the head region. There is suppressed activity in the bilateral parietal leads. Some myogenic activity was seen in the frontal region. The background does not seem to be reactive to manual eye opening or closing by the electronic bench technician. Photic driving response was not seen. Different stages of sleep were not seen. No focal or generalized epileptiform activity was seen. solar field service technician mentioned the patient with body jerking or trembling of both hands, but no epileptiform activity was seen during this study. IMPRESSION: Abnormal EEG due to presence of mixed pattern consisting of suppressed brain waves in the bilateral parietal region, with presence of diffuse fast frequency beta activity seen in rest of the regions. The background was not reactive to any activation for seizures. Overall, this study is suggestive of generalized cerebral dysfunction as can be seen with toxic metabolic encephalopathy or related to underlying structural abnormality. Clinical correlation is recommended. No epileptiform activity was seen. No electrographic evidence of status epilepticus. MMODL / IJN: [id number] /
[2024-03-06 04:13] LABS: Basophils % (A) 0 %; Eosinophils # (A) 0.1 k/uL (0-0.7); Eosinophils % (A) 1 %; Lymphocytes # (A) 0.6 k/uL (1.0-4.8); Lymphocytes % (A) 9 %; MCH 32.3 pg (25.0-35.0); MCHC 32.2 g/dL (31.0-37.0); MCV 100.3 fL (80.0-100.0); Mean Platelet Volume 8.4; Monocytes # (A) 0.2 k/uL (0-1.0); Monocytes % (A) 4 %; Neutrophils # (A) 5.6 k/uL (1.3-7.7); Neutrophils % (A) 86 %; Platelet Count 140 k/uL (150-450); RBC 3.09 m/uL (3.80-5.40); RDW 13.7 % (11.5-15.5); WBC 6.5 k/uL (3.8-10.6)
[2024-03-06 04:28] LABS: ALT 45 U/L (4-34); AST 174 U/L (14-36); African American GFR (CKD) >90 (>60 ml/min/1.73 sqM); Anion Gap 6 mmol/L; Blood Urea Nitrogen 13 mg/dL (7-17); Calcium 7.3 mg/dL (8.4-10.2); Carbon Dioxide 28 mmol/L (22-30); Chloride 98 mmol/L (98-107); Glucose 125 mg/dL (74-99); Magnesium 1.1 mg/dL (1.6-2.3); Non-African American GFR(CKD) >90 (>60 ml/min/1.73 sqM); Potassium 3.2 mmol/L (3.5-5.1); Sodium 132 mmol/L (137-145)
[2024-03-06 04:43] LABS: ABG Base Excess 4.2 mmol/L; ABG HCO3 28 mmol/L (21-25); ABG Oxygen Saturation 95.4 % (94-97); ABG PCO2 36 mmHg (35-45); ABG PO2 73 mmHg (83-108); ABG TCO2 29 mmol/L (19-24)
[2024-03-06] MEDS ORDERED: Magnesium Replacement Protocol 1 EACH MISC MISCELLANE PRN (04:52)
[2024-03-06] MEDS: MAGNESIUM SULFATE-D5W PMX 1 GM in DEXTROSE/WATER 1 100ML.BAG IVPB SCH (04:57)
[2024-03-06 05:01] LABS: Allen Test Performed? no
[2024-03-06] MEDS: POTASSIUM BICARBONATE/CIT AC 20 MEQ TABLET.EFF NG-TUBE SCH ×3 (05:41→20:27)
[2024-03-06 05:49] LABS: Glucose,Whole Blood 123 mg/dL (70-110)
--- NOTE | 2024-03-06 08:14 | XR ---
EXAMINATION TYPE: XR chest 1V portable DATE OF EXAM: 03/06/2024 5:53 AM COMPARISON: 03/05/2024 CLINICAL INDICATION: Female, 63 years old with history of mechanical ventilation, , FINDINGS: Partially visualized intramedullary nail fixation right humerus. Right IJ CVC tip at the mid SVC leve l. ET tube tip estimated 5 cm from the elba. Satisfactory. NG tube courses below the diaphragm. Hea rt normal size. Interstitial densities persist. Slightly increasing patchy opacity at the right great er than left lower lungs. Possible trace effusions. IMPRESSION: Interstitial densities and trace effusions persist. Patchy bibasilar opacities, right greater than le ft, slightly increased. [facility], , 03/06/2024 8:11 AM
[2024-03-06] MEDS: SODIUM CHLORIDE 0.9% 1,000 ML IV SCH (09:30)
--- NOTE | 2024-03-06 09:40 | P.PN ---
Subjective Progress Note Date: 03/06/24 Hospital Course: Patient is a 63-year-old female apparently with alcohol abuse and polysubstance abuse is brought to the emergency department via EMS for cardiac arrest. Patient is mechanically ventilated so history is obtained from the ER note as well as by talking to Dr. Munoz. Apparently patient lives in an apartment with 2 people who called police after she was unresponsive for about 20 minutes before the EMS arrived. Patient was found to be in PEA and was given 1 dose of epinephrine and was intubated. They were able to achieve ROSC. Patient received an additional 2 doses of epinephrine while in transit to ED. Patient is currently mechanically ventilated on control assist with settings of respiratory rate of 20, tidal volume 400, FiO2 50 and PEEP of 5. Patient is currently on propofol drip and vasopressors. Initial laboratory evaluation WBC 5.5, hemoglobin 9.8, hematocrit 33.3, MCV 111.5, platelet count 251, PT 11.8, INR 1.1, APTT 38.1,. Blood gas show pH of 7.06, pCO2 40, HCO3 11,. Sodium 140, potassium 4.3, chloride 109, bicarb 6, anion gap 25, BUN 18, creatinine 0.96, EGFR 63, glucose 157, lactic acid 13.2, calcium 8.2, AST 197, ALT 48, albumin 3.3, troponin less than 0.012. Vitals on arrival with a heart rate of 91, respiratory rate 20, blood pressure 61/40, oxygen 100% saturation with mechanical isolation. Urinalysis negative. Urine toxicology is negative Serum alcohol 351 Chest x-ray done in ED interpreted independently shows small left pleural effusion Brain CT done in the ED shows no acute intracranial defects or mass. EKG done in the ED interpreted apparently shows sinus rhythm with occasional ectopic premature complexes Subjective: Patient seen and examined at bedside. Currently sedated on mechanical ventilation. Pertinent positives and negatives as discussed above, a complete review of systems was performed and all other systems are negative. Vitals: Signs Reviewed Physical Exam: General: sedated, mechanical respirator Derm: warm, dry, intact Head: atraumatic, normocephalic, symmetric Eyes: EOMI, anicteric sclera Mouth: no lip lesion, mucus membranes moist Cardiovascular: S1 S2 reg, no murmur, rubs, or gallops Lungs: CTA bilateral, no rhonchi, no rales, no accessory muscle use Abdominal: soft, non-tender to palpataion, no appreciable organomegaly Extremities: no gross muscle atrophy, no edema, no contractures Neuro: Alert, Oriented, CNII-XII grossly intact, gait normal Psych: well appearing, appropriate affect Data Received Today: Pertinent Labs: ABG 7.50/36/73, CO2 31, Hgb 9.7 Assessment/Plan: This is a 63-year-old female with a history of alcohol abuse and polysubstance abuse who is brought to the ER for out of hospital cardiac arrest. #Cardiac arrest outside hospital #Anoxic Brain Injury #Neurogenic Fevers #Alcohol intoxication # Anoxic encephalopathy Patient is currently intubated and mechanically supported on control assist with settings of respiratory rate of 20, tidal volume 400, FiO2 35 and PEEP of 5. Maintain a MAP of more than equal to 65 Chest x-ray done in ED interpreted independently shows small left pleural effusion Brain CT done in the ER shows no acute intracranial defects or mass. EKG done in the ER interpreted apparently shows sinus rhythm with occasional ectopic premature complexes Strict I's and O's Order IV thiamine 100 mg IVP daily Placed on CIWA protocol, Ativan as per protocol Neurochecks and seizure precautions Continue with home gabapentin Neurology has been consulted, started on keppra and Vimpat EEG 03/03/2024 was abnormal due to presence of burst suppressed pattern, with bursts consisting of high amplitude dysrhythmic sharp and some slow waves lasting for 1 second followed by periods of suppression lasting for 6-8 seconds. This pattern can be seen with severe anoxic encephalopathy. Goals of care to be discussed with family regarding comfort care. EEG 03/05/2524 suggestive of generalized cerebral dysfunction as can be seen with toxic metabolic cephalopathy or related to underlying structural abnormality, no epileptiform activity Gift of life, new to see if he qualifies for organ donation. Family flying in from [place], will wait for their requests. #Anion gap metabolic acidosis with superimposed metabolic alkalosis secondary to lactic acidosis and alcoholic ketoacidosis, resolved # Hypovolemic shock, resolved Blood gas show pH of 7.06, pCO2 40, HCO3 11 Sodium 140, potassium 4.3, chloride 109, bicarb 6, anion gap 25 Lactic acid 13.2 Patient is status post 2 sodium bicarb infusions in the ED Continue with bicarb drip running at 75 cc/h Repeat ABG in a.m. Recheck lactic acid in a.m. #Hyperglycemia Accu-Cheks and sliding scale insulin Order HbA1c #Alcohol associated transaminitis AST 197, ALT 48 Continue monitor CMP CMP in a.m. #Macrocytic anemia likely in the setting of alcohol abuse Unknown Hb baseline Hemoglobin 9.8, MCV heart 11.5, Check vitamin B12 and RBC folate Iron profile ordered #. Hypokalemia Replace per protocol DVT prophylaxis: Lovenox 40 mg subcu daily GI prophylaxis: IV Protonix 40 mg once daily F: IV normal saline at 75 cc/h E: Replete as needed N: NPO A: Ambulatory at baseline at home DVT ppx: Lovenox 40 SQ daily Code status: Full code Anticipated discharge place: Pending clinical course Anticipated discharge time: Pending clinical course Prognosis is poor. Dictation was produced using [employer] dictation software. please excuse any grammatical, word or spelling errors. I saw and evaluated the patient during the aguirre and critical portions of this encounter, and discussed the case in detail with the resident author of this note, I agree with the Assessment and Plan, and my changes, if any, are highlighted in blue. Goals of care conversation with family at bedside resulted in transition of patient to comfort measures. Objective - Vital Signs Vital signs: Vital Signs Temp 97.2 F L 03/06/24 06:00 Pulse 96 03/06/24 06:00 Resp 20 03/06/24 06:00 BP 111/62 03/06/24 06:00 Pulse Ox 94 L 03/06/24 06:00 FiO2 35 03/06/24 06:00 Intake & Output 03/05/24 03/05/24 03/06/24 06:59 18:59 06:59 Intake Total 6786.210 2074.214 1696.909 Output Total 950 1160 795 Balance 423.792 242.214 901.909 Weight 53.8 kg 56.4 kg Intake: IV 900 900 933 Sodium Chloride 0.9% 1, 900 900 900 000 ml @ 75 mls/hr IV . [id number] KADEEM Rx#:[id number] pressure bag 33 Intake, IV Titration 59.792 88.214 319.909 Amount Magnesium Sulfate-D5w Pmx 200 1 gm In Dextrose/Water 1 100ml.bag @ 100 mls/hr IVPB Q1H KADEEM Rx#: [id number] propofoL 1,000 mg In 59.792 88.214 119.909 Empty Bag 1 bag @ 15 MCG/ KG/MIN 5.307 mls/hr IV . [id number] KADEEM Rx#:[id number] Tube Feeding 324 324 324 Other 90 90 120 Output: Urine 950 1160 795 Other: Voiding Method Indwelling Catheter Indwelling Catheter Indwelling Catheter ABP, PAP, CO, CI - Last Documented Arterial Blood Pressure 138/60 - Labs CBC & Chem 7: 03/06/24 03:46 03/06/24 11:05 Labs: Abnormal Lab Results - Last 24 Hours (Table) 03/05/24 03/05/24 03/05/24 Range/Units 11: 17:50 20:48 RBC (3.80-5.40) m/uL Hgb (11.4-16.0) gm/dL Hct (34.0-46.0) % MCV (80.0-100.0) fL Plt Count (150-450) k/uL Lymphocytes # (1.0-4.8) k/uL ABG pH (7.35-7.45) ABG pO2 (83-108) mmHg ABG HCO3 (21-25) mmol/L ABG Total CO2 (19-24) mmol/L Hemoglobin (11.4-16.0) gm/dL Sodium (137-145) mmol/L Potassium 3.1 L (3.5-5.1) mmol/L Glucose (74-99) mg/dL POC Glucose (mg/dL) 117 H 115 H (70-110) mg/dL Calcium (8.4-10.2) mg/dL Magnesium (1.6-2.3) mg/dL AST (14-36) U/L ALT (4-34) U/L 03/05/24 03/06/24 03/06/24 Range/Units 23:01 03:46 03:46 RBC 3.09 L (3.80-5.40) m/uL Hgb 10.0 L (11.4-16.0) gm/dL Hct 31.0 L (34.0-46.0) % MCV 100.3 H (80.0-100.0) fL Plt Count 140 L (150-450) k/uL Lymphocytes # 0.6 L (1.0-4.8) k/uL ABG pH (7.35-7.45) ABG pO2 (83-108) mmHg ABG HCO3 (21-25) mmol/L ABG Total CO2 (19-24) mmol/L Hemoglobin (11.4-16.0) gm/dL Sodium 132 L (137-145) mmol/L Potassium 3.2 L (3.5-5.1) mmol/L Glucose 125 H (74-99) mg/dL POC Glucose (mg/dL) 118 H (70-110) mg/dL Calcium 7.3 L (8.4-10.2) mg/dL Magnesium 1.1 L (1.6-2.3) mg/dL AST 174 H (14-36) U/L ALT 45 H (4-34) U/L 03/06/24 03/06/24 Range/Units 04:42 05:48 RBC (3.80-5.40) m/uL Hgb (11.4-16.0) gm/dL Hct (34.0-46.0) % MCV (80.0-100.0) fL Plt Count (150-450) k/uL Lymphocytes # (1.0-4.8) k/uL ABG pH 7.50 H (7.35-7.45) ABG pO2 73 L (83-108) mmHg ABG HCO3 28 H (21-25) mmol/L ABG Total CO2 29 H (19-24) mmol/L Hemoglobin 10.0 L (11.4-16.0) gm/dL Sodium (137-145) mmol/L Potassium (3.5-5.1) mmol/L Glucose (74-99) mg/dL POC Glucose (mg/dL) 123 H (70-110) mg/dL Calcium (8.4-10.2) mg/dL Magnesium (1.6-2.3) mg/dL AST (14-36) U/L ALT (4-34) U/L
[2024-03-06] MEDS: CHLORHEXIDINE GLUCONATE 15 ML CUP MUCOUS MEM SCH (09:44)
[2024-03-06 09:49] VITALS: BMI 22.7
[2024-03-06 11:37] LABS: Magnesium 2.4 mg/dL (1.6-2.3); Potassium 3.3 mmol/L (3.5-5.1)
[2024-03-06] MEDS ORDERED: Potassium Replacement Protocol 1 EACH MISC MISCELLANE PRN (12:45)
[2024-03-06 12:54] LABS: Glucose,Whole Blood 125 mg/dL (70-110)
[2024-03-06] MEDS ORDERED: GLYCOPYRROLATE 0.2 MG/ML 2 ML VIAL IVP PRN (13:13)
--- NOTE | 2024-03-06 13:19 | P.PN ---
Subjective Progress Note Date: 03/06/24 Cardiac arrest. Progress Note Date: 03/04/24 Patient is a 63-year-old female with alcohol abuse and polysubstance abuse and was brought into the emergency department via EMS for cardiac arrest at 4 AM today.. Patient was intubated in the field and mechanically ventilated in our facility. Patient apparently lives in an apartment with 2 people and witnessed cardiac arrest. Patient was down for 20 minutes before EMS arrived. Patient was found to be in PEA was given 1 dose of epinephrine and intubated. They were able to achieve ROSC and gave 2 doses of epinephrine while in transit to our ED. Patient's mechanical ventilator settings on admission were assist-control with a rate of 20, tidal volume 400, FiO2 50 and a PEEP of 5. Patient was sedated and vasopressors were required for hemodynamic instability. Central line was also placed in the right internal jugular at our facility. Imaging on admission shows trace left pleural effusion, with endotracheal tube terminating at 4.7 cm above the elba, enteric feeding tube seen and in place, and right IJ catheter seen and in place. EKG done in the ED interpreted apparently shows sinus rhythm with occasional ectopic premature complexes. Brain CT done in the ED shows no acute intracranial defects or mass. Initial labs on admission were WBC 5.5, hemoglobin 9.8, hematocrit 33.3, MCV 111.5, platelet count 251, PT 11.8, INR 1.1, APTT 38.1,. Blood gas show pH of 7.06, pCO2 40, HCO3 11,. Sodium 140, potassium 4.3, chloride 109, bicarb 6, anion gap 25, BUN 18, creatinine 0.96, EGFR 63, glucose 157, lactic acid 13.2, calcium 8.2, AST 197, ALT 48, albumin 3.3, troponin less than 0.012. Currently in the ICU, patient is on propofol at 40mcg/kg/min and D5W 3A bicarb drip at 75ml//hr. Patient's mechanical ventilator settings on admission were assist-control with a rate of 20, tidal volume 400, FiO2 50 and a PEEP of 5. Repeat blood gases show pO2 194, pCO2 24, pH 7.33. Repeat chest x-ray today at 5 AM shows trace left pleural effusion with right lower lung linear scarring and/or atelectasis, and has no change from initial x-ray. On NPO. ERIKA balance +1 L with urine output 1.2 L. 03/04/2024 patient seen and examined at bedside. Patient's mechanical ventilator settings on admission were assist-control with a rate of 20, tidal volume 400, FiO2 35 and a PEEP of 5. Propofol running at 40 mics per kilogram per minute. Enteral feeding vital AF 1.2 running at a rate of 20 mL/h. ABG today showed PaO2 111, pCO2 35, pH 7.56. Labs today showed WBC 8.5, hemoglobin 10.9, platelet coun t 1 99,000, sodium 134, potassium 2.8, chloride 98, bicarb 28, BUN 15, creatinine 0.78, glucose 157, calcium 7. Chest x-ray today showed no significant interval change in mid bandlike atelectasis seen in the right middle or lower lobe. ET tube seen at 5.1 cm above the elba in place. EEG showed abnormal EEG the presence of a burst suppression pattern as described seen with severe anoxic encephalopathy. Progress note dated March 05, 2024. 63-year-old female who has a history of a [id number] cardiopulmonary arrest. She was resuscitated, and brought to the emergency department, and transferred to the intensive care unit. The patient remains on mechanical ventilation, with a volume assist-control mode, rate 20, tidal volume 400, FiO2 35%, PEEP of 5. Blood gases show a pO2 of 66, pCO2 of 35, the pH is 7.54. She is on propofol at 20 mcg/kg/min, saline at 75 cc an hour, and vital AF at goal which is 27 cc an hour. Repeat brain CT was negative. Neurology has been consulted. EEG showed diffuse slowing consistent with anoxic/metabolic encephalopathy. The patient did poorly with her daily interruption of sedation yesterday. Current labs include a white count 8.3, hemoglobin 9.7, hematocrit 29.4, platelet count 156,000. Sodium 131, potassium 3.3, chlorides 95, CO2 31, BUN 16, creatinine 0.76. Glucose 108. Calcium 6.7. Chest x-ray shows that the endotracheal tube is 3.5 cm above the elba. There is very small bilateral pleural effusions, and right middle lobe right lower lobe atelectasis. on 03/06/2024, the patient is being seen for a follow-up. This is a 63-year-old male patient sustained an out of hospital cardiac arrest with a prolonged downtime. The patient was in a PEA cardiac arrest. He has history of polysubstance abuse and alcoholism. He remains intubated on the mechanical ventilator. This morning, the patient assist-control mode of mechanical ventilation at rate of 20, tidal volume of 400, FiO2 of 35% with a PEEP of 5. The blood gases from today showed a pH of 7.5 with a pCO2 of 36 and pO2 of 73. This was done on FiO2 of 35%. The chest x-ray from today shows atelectatic changes in the right lower lobe area. ET tube is in a good location. The patient has an NG tube in place. No acute airspace disease or consolidation. Hardware is seen in the right upper extremity/shoulder area. The patient remains sedated on propofol which is running at 25 mcg/kg/min. The patient is also on normal saline at 75 cc an hour. He is receiving enteral feeding for nutritional support and is on vital AF at 27 cc/hr. In terms of his neurolog ical outcome postcardiac arrest, the EEG showed diffuse slowing on 03/05/2024. This was an abnormal EEG with mixed pattern consistent with suppression of brain waves in the bilateral parietal region and presence of diffuse fast frequency beta activity suggestive of generalized cerebral dysfunction consistent with anoxic encephalopathy. There was no evidence of any seizure-like activity. The patient's CAT scan of the brain was done on 03/04/2024 and 03/03/2024 consistent with no acute abnormalities. The echocardiogram has not been performed. The EKG at the time of admission was consistent with normal sinus rhythm without any acute ischemic changes and the cardiac enzymes x 1 troponin was negative. Labs from today shows a sodium level of 132, potassium of 3.2, BUN 13 with a creatinine of 0.6. The white cell count is 6.5 with a hemoglobin of 10 and a platelet count of 140. The patient is currently on Vimpat for seizure prophylaxis. He is also on Keppra. He is on Lovenox for DVT prophylaxis. He is also on NovoLog sliding scale coverage. No antibiotics. Afebrile. Hemodynamically stable on no pressors. Earlier this morning, the patient was given a sedation holiday. She remains completely unresponsive. Repeat EEG is to follow. Family is to arrive for further discussions regarding care. Objective - Vital Signs Vital signs: Vital Signs Temp 97.6 F 03/06/24 07:00 Pulse 96 03/06/24 07:26 Resp 20 03/06/24 07:00 BP 111/62 03/06/24 07:00 Pulse Ox 94 L 03/06/24 07:00 FiO2 35 03/06/24 07:24 Intake & Output 03/05/24 03/06/24 03/06/24 18:59 06:59 18:59 Intake Total 3988.200 4530.909 235 Output Total 1160 795 30 Balance 242.214 901.909 205 Weight 56.4 kg Intake: IV 900 933 78 Sodium Chloride 0.9% 1, 900 900 75 000 ml @ 75 mls/hr IV . [id number] KADEEM Rx#:[id number] pressure bag 33 3 Intake, IV Titration 88.214 319.909 100 Amount Magnesium Sulfate-D5w Pmx 200 100 1 gm In Dextrose/Water 1 100ml.bag @ 100 mls/hr IVPB Q1H KADEEM Rx#: [id number] propofoL 1,000 mg In 88.214 119.909 Empty Bag 1 bag @ 15 MCG/ KG/MIN 5.307 mls/hr IV . [id number] KADEEM Rx#:[id number] Tube Feeding 324 324 27 Other 90 120 30 Output: Urine 1160 795 30 Other: Voiding Method Indwelling Catheter Indwelling Catheter ABP, PAP, CO, CI - Last Documented Arterial Blood Pressure 141/61 - Exam No acute distress, sedated with propofol, with an orally placed endotracheal tube, and NG tube. The patient is breathing above the mechanical ventilator. She is initiating her own breaths. HEENT examination is grossly unremarkable. Unequal pupils was noted. No corneal. No gag reflex. Neck supple. Full range of motion. No adenopathy thyromegaly or neck vein distention. Cardiovascular examination reveals regular rhythm rate. S1-S2 normal. No S3 or S4. No discernible murmur noted. Heart sounds are distant. Lungs reveal mostly clear breath sounds. Mild bilateral rhonchi. No wheezes or crackles. Breath sounds are equal bilaterally. Abdomen soft with bowel sounds. No masses or tenderness. Extremities are intact. No cyanosis clubbing or edema. Skin is without rash or lesion. Neurologic examination is difficult to evaluate at this time. The pupils are round 4mm on the right and 5 mm in size, sluggishly reactive to light, oculocephalics are present, corneal reflexes absent, no coughing or gagging. No twitching or any jerky body movements. Motor and sensory function cannot be clearly obtained. - Labs CBC & Chem 7: 03/06/24 03:46 03/06/24 11:05 Labs: Abnormal Lab Results - Last 24 Hours (Table) 03/05/24 03/05/24 03/05/24 Range/Units 11:27 17:50 20:48 RBC (3.80-5.40) m/uL Hgb (11.4-16.0) gm/dL Hct (34.0-46.0) % MCV (80.0-100.0) fL Plt Count (150-450) k/uL Lymphocytes # (1.0-4.8) k/uL ABG pH (7.35-7.45) ABG pO2 (83-108) mmHg ABG HCO3 (21-25) mmol/L ABG Total CO2 (19-24) mmol/L Hemoglobin (11.4-16.0) gm/dL Sodium (137-145) mmol/L Potassium 3.1 L (3.5-5.1) mmol/L Glucose (74-99) mg/dL POC Glucose (mg/dL) 117 H 115 H (70-110) mg/dL Calcium (8.4-10.2) mg/dL Magnesium (1.6-2.3) mg/dL AST (14-36) U/L ALT (4-34) U/L 03/05/24 03/06/24 03/06/24 Range/Units 23:01 03:46 03:46 RBC 3.09 L (3.80-5.40) m/uL Hgb 10.0 L (11.4-16.0) gm/dL Hct 31.0 L (34.0-46.0) % MCV 100.3 H (80.0-100.0) fL Plt Count 140 L (150-450) k/uL Lymphocytes # 0.6 L (1.0-4.8) k/uL ABG pH (7.35-7.45) ABG pO2 (83-108) mmHg ABG HCO3 (21-25) mmol/L ABG Total CO2 (19-24) mmol/L Hemoglobin (11.4-16.0) gm/dL Sodium 132 L (137-145) mmol/L Potassium 3.2 L (3.5-5.1) mmol/L Glucose 125 H (74-99) mg/dL POC Glucose (mg/dL) 118 H (70-110) mg/dL Calcium 7.3 L (8.4-10.2) mg/dL Magnesium 1.1 L (1.6-2.3) mg/dL AST 174 H (14-36) U/L ALT 45 H (4-34) U/L 03/06/24 03/06/24 Range/Units 04:42 05:48 RBC (3.80-5.40) m/uL Hgb (11.4-16.0) gm/dL Hct (34.0-46.0) % MCV (80.0-100.0) fL Plt Count (150-450) k/uL Lymphocytes # (1.0-4.8) k/uL ABG pH 7.50 H (7.35-7.45) ABG pO2 73 L (83-108) mmHg ABG HCO3 28 H (21-25) mmol/L ABG Total CO2 29 H (19-24) mmol/L Hemoglobin 10.0 L (11.4-16.0) gm/dL Sodium (137-145) mmol/L Potassium (3.5-5.1) mmol/L Glucose (74-99) mg/dL POC Glucose (mg/dL) 123 H (70-110) mg/dL Calcium (8.4-10.2) mg/dL Magnesium (1.6-2.3) mg/dL AST (14-36) U/L ALT (4-34) U/L Assessment and Plan Plan: [id number], cardiopulmonary arrest, with prolonged resuscitative phase. The patient had a witnessed out of hospital cardiac arrest with a prolonged downtime of 35 minutes per EMS. Acute hypoxic respiratory failure postcardiac arrest and the patient is S/P intubation and ventilation, for respiratory failure on 03/03/2024 anoxic brain injury, please refer to the EEG of the brain. The patient had an acute alcohol intoxication at time of admission and his EEG is consistent with severe anoxic encephalopathy and the patient is receiving a combination of Vimpat and Keppra for seizures. Most recent EEG from 03/05/2024 showed no evidence of any seizure activity. Sedation holiday was given this morning. The patient remains unresponsive. History of chronic alcohol abuse and alcohol intoxication. Anion gap metabolic acidosis, secondary to lactic acidemia, resolved. Lactic acidosis, recovered Chronic anemia History of smoking Alcohol-related transaminitis. Plan: Continue vent support. As the patient was coming off the sedation, the patient became asynchronous with the mechanical ventilator. Based on that, the patient was switched to pressure control mode of mechanical ventilation with a rate of 2 0 and the pressure control of 20. Will keep the FiO2 at 35% with a PEEP of 5. Obtain echocardiogram Obtain follow-up EEG Kept on IV fluids to 40 cc an hour Continue enteral feeding for nutritional support ,continue Keppra and Vimpat Lovenox 40 mg subcu for DVT prophylaxis Neurology follow-up Further discussions with the family regarding goals of care. Long-term prognosis poor. Patient has signs of severe anoxic encephalopathy. Continue supportive care pending further discussion with the family. Evaluation was done more than 30 minutes in this acute care evaluation. Will involve gift of life Time with Patient: Greater than 30
[2024-03-06] MEDS: SODIUM CHLORIDE 0.9% 500 ML 500 ML IV ONE (15:10)
--- NOTE | 2024-03-06 16:36 | P.PN ---
Subjective Progress Note Date: 03/06/24 I am seeing the patient for the first time. Please refer to Dr. Rivas's notes for further details. It seems the patient had a cardiopulmonary arrest outside hospital and was prolonged. Alcohol intoxication. Per the nurse the patient was on IV propofol 25mcg/kg/min was held for 4 hours prior to my examination and per the nurse patient has brainstem reflexes but is not following commands or moving extremities purposefully. No further seizure- like activity. It seems that the patient during this hospital visit has seizure-like activity and the patient is on Keppra and Vimpat. Objective - Vital Signs Vital signs: Vital Signs Temp 99.7 F H 03/06/24 16:00 Pulse 108 H 03/06/24 16:00 Resp 21 03/06/24 16:00 BP 111/62 03/06/24 08:00 Pulse Ox 94 L 03/06/24 16:00 FiO2 35 03/06/24 16:00 Intake & Output 03/05/24 03/06/24 03/06/24 18:59 06:59 18:59 Intake Total 7087.779 5970.909 1043.383 Output Total 1160 795 417 Balance 242.214 901.909 626.383 Weight 56.4 kg 56.4 kg Intake: IV 900 933 535 Sodium Chloride 0.9% 1, 900 900 505 000 ml @ 75 mls/hr IV . [id number] KADEEM Rx#:[id number] pressure bag 33 30 Intake, IV Titration 88.214 319.909 112.383 Amount Magnesium Sulfate-D5w Pmx 200 100 1 gm In Dextrose/Water 1 100ml.bag @ 100 mls/hr IVPB Q1H KADEEM Rx#: [id number] propofoL 1,000 mg In 88.214 119.909 12.383 Empty Bag 1 bag @ 15 MCG/ KG/MIN 5.307 mls/hr IV . [id number] KADEEM Rx#:[id number] Tube Feeding 324 324 306 Other 90 120 90 Output: Urine 1160 795 417 Other: Voiding Method Indwelling Catheter Indwelling Catheter Indwelling Catheter ABP, PAP, CO, CI - Last Documented Arterial Blood Pressure 150/64 - Exam General: Lying in bed and does not appear in acute distress. Lung: Intubated on a ventilator. Neuro: Limited. IV sedation has been held for 4 hours prior to my examination Patient is comatose. GCS 3 (E1, VT1, MT1). I had to manually open her eyes. Pupils are round the left is about 5 to 6 mm and the right is about 3 to 4 mm and are sluggishly reactive to light. Patient is breathing over the vent. Patient has very minimal cough reflex No facial weakness. Motor the strength is unable to assess individual muscle strength because of her overall condition. But does not withdraw to painful stimuli. No spontaneous movement - Labs CBC & Chem 7: 03/06/24 03:46 03/06/24 11:05 Labs: Abnormal Lab Results - Last 24 Hours (Table) 03/03/24 03/05/24 03/05/24 Range/Units 05:07 17:50 20:48 RBC (3.80-5.40) m/uL Hgb (11.4-16.0) gm/dL Hct (34.0-46.0) % MCV (80.0-100.0) fL Plt Count (150-450) k/uL Lymphocytes # (1.0-4.8) k/uL ABG pH (7.35-7.45) ABG pO2 (83-108) mmHg ABG HCO3 (21-25) mmol/L ABG Total CO2 (19-24) mmol/L Hemoglobin (11.4-16.0) gm/dL Sodium (137-145) mmol/L Potassium 3.1 L (3.5-5.1) mmol/L Glucose (74-99) mg/dL POC Glucose (mg/dL) 115 H (70-110) mg/dL Calcium (8.4-10.2) mg/dL Magnesium (1.6-2.3) mg/dL AST (14-36) U/L ALT (4-34) U/L RBC Folate 853 H (280 - 791) ng/mL 03/05/24 03/06/24 03/06/24 Range/Units 23:01 03:46 03:46 RBC 3.09 L (3.80-5.40) m/uL Hgb 10.0 L (11.4-16.0) gm/dL Hct 31.0 L (34.0-46.0) % MCV 100.3 H (80.0-100.0) fL Plt Count 140 L (150-450) k/uL Lymphocytes # 0.6 L (1.0-4.8) k/uL ABG pH (7.35-7.45) ABG pO2 (83-108) mmHg ABG HCO3 (21-25) mmol/L ABG Total CO2 (19-24) mmol/L Hemoglobin (11.4-16.0) gm/dL Sodium 132 L (137-145) mmol/L Potassium 3.2 L (3.5-5.1) mmol/L Glucose 125 H (74-99) mg/dL POC Glucose (mg/dL) 118 H (70-110) mg/dL Calcium 7.3 L (8.4-10.2) mg/dL Magnesium 1.1 L (1.6-2.3) mg/dL AST 174 H (14-36) U/L ALT 45 H (4-34) U/L RBC Folate (280 - 791) ng/mL 03/06/24 03/06/24 03/06/24 Range/Units 04:42 05:48 11:05 RBC (3.80-5.40) m/uL Hgb (11.4-16.0) gm/dL Hct (34.0-46.0) % MCV (80.0-100.0) fL Plt Count (150-450) k/uL Lymphocytes # (1.0-4.8) k/uL ABG pH 7.50 H (7.35-7.45) ABG pO2 73 L (83-108) mmHg ABG HCO3 28 H (21-25) mmol/L ABG Total CO2 29 H (19-24) mmol/L Hemoglobin 10.0 L (11.4-16.0) gm/dL Sodium (137-145) mmol/L Potassium 3.3 L (3.5-5.1) mmol/L Glucose (74-99) mg/dL POC Glucose (mg/dL) 123 H (70-110) mg/dL Calcium (8.4-10.2) mg/dL Magnesium 2.4 H (1.6-2.3) mg/dL AST (14-36) U/L ALT (4-34) U/L RBC Folate (280 - 791) ng/mL 01/27/25 Range/Units 12:52 RBC (3.80-5.40) m/uL Hgb (11.4-16.0) gm/dL Hct (34.0-46.0) % MCV (80.0-100.0) fL Plt Count (150-450) k/uL Lymphocytes # (1.0-4.8) k/uL ABG pH (7.35-7.45) ABG pO2 (83-108) mmHg ABG HCO3 (21-25) mmol/L ABG Total CO2 (19-24) mmol/L Hemoglobin (11.4-16.0) gm/dL Sodium (137-145) mmol/L Potassium (3.5-5.1) mmol/L Glucose (74-99) mg/dL POC Glucose (mg/dL) 125 H (70-110) mg/dL Calcium (8.4-10.2) mg/dL Magnesium (1.6-2.3) mg/dL AST (14-36) U/L ALT (4-34) U/L RBC Folate (280 - 791) ng/mL Assessment and Plan Assessment: * Witnessed, out of hospital cardiac arrest with prolonged downtime of approximately 35 minutes, as per EMS. * Anoxic encephalopathy due to above, severe in degree. On current examination while sedation held for 4 hours and has few brainstem reflex only. * Abnormal EEG with burst suppressed pattern due to above. * Arrhythmic twitching of the eyes, hands and feet---due to above. Resolved and is currently on Keppra and Vimpat * Acute respiratory failure, on mechanical ventilation * Alcohol intoxication * Chronic alcoholism * Macrocytosis due to above * Elevated liver enzymes * Lactic acidosis * Anemia * Tobacco use Plan: * Repeat CT head without contrast 03/04/2024 reported no acute intracranial abn ormality. MRI recommended if clinically indicated. I personally reviewed CT head, and there is evidence of at least mild degree of generalized cerebral edema, with loss of ji-white differentiation and some effacement of the sulci, and slight effacement of the lateral ventricles. However no herniation seen. * EEG 03/03/2024 was abnormal due to presence of burst suppressed pattern, with bursts consisting of high amplitude dysrhythmic sharp and some slow waves lasting for 1 second followed by periods of suppression lasting for 6-8 seconds. This pattern can be seen with severe anoxic encephalopathy. Clinical correlation is recommended. * Repeat EEG on 03/05/2024: Reported as abnormal EEG due to the presence of mixed pattern consisting of suppression brainwave in the bilateral parietal r egion. With the presence of diffuse fast frequency beta activity seen and rest of region. The background was not reactive to any activation for seizure. Overall the study is suggestive of generalized cerebral dysfunction as can be seen with toxic metabolic encephalopathy or related underlying str uctural abnormality. Clinical correlation is recommended. No epileptiform activity was seen. No electrographic evidence of status epilepticus. * ICU team ordered a repeat EEG for today. Preliminary there is no seizure or burst suppression. There is no discharges. * Patient currently on Keppra to 1500 mg twice a day, and Vimpat 200 mg IV twice a day. * Other medical management as per IM and other specialties on board. * Recommend holding sedation for at least 48 hours for better neurological e xamination. ADDENDUM: I was updated by the nurse that the family would like to pursue gift of life (GOL) tomorrow. Time with Patient: Less than 30
[2024-03-06 17:12] LABS: ABG Base Excess 4.2 mmol/L; ABG HCO3 28 mmol/L (21-25); ABG Oxygen Saturation 94.5 % (94-97); ABG PCO2 36 mmHg (35-45); ABG PH 7.49 (7.35-7.45); ABG PO2 68 mmHg (83-108); ABG TCO2 29 mmol/L (19-24)
[2024-03-06 17:36] LABS: Glucose,Whole Blood 119 mg/dL (70-110)
--- NOTE | 2024-03-06 17:41 | CA ---
Transthoracic Echo Report Name: Viktoria Dougherty Age: 63 Gender: F : 1960 Exam Date: 03/06/2024 16:54 Exam Location: [facility] Ht (in): 62 Wt (lb): 124 Ordering Physician: Adalberto Ordoñez MD Attending/Referring Phys: Rn On Site Radha Maguire RDCS Procedure CPT: Indications: evaluate lvf Cardiac Hx: Technical Quality: Fair Contrast 1: Total Dose (mL): Contrast 2: Total Dose (mL): MEASUREMENTS (Male / Female) Normal Values 2D ECHO LV Diastolic Diameter PLAX 4.7 cm 4.2 - 5.9 / 3.9 - 5.3 cm LV Systolic Diameter PLAX 3.0 cm IVS Diastolic Thickness 0.7 cm 0.6 - 1.0 / 0.6 - 0.9 cm LVPW Diastolic Thickness 0.9 cm 0.6 - 1.0 / 0.6 - 0.9 cm LV Relative Wall Thickness 0.3 LVOT Diameter 1.8 cm LV Diastolic Volume MOD BP 76.4 cm??? 67 - 155 / 56 - 104 cm??? LV Systolic Volume MOD BP 31.9 cm??? 22 - 58 / 19 - 49 cm??? LV Ejection Fraction MOD BP 58.3 % >= 55 % LV Cardiac Index MOD BP 3000.0 cm???/min???m??? LV Diastolic Volume MOD 4C 69.7 cm??? LV Systolic Volume MOD 4C 27.7 cm??? LV Ejection Fraction MOD 4C 60.3 % LV Cardiac Index MOD 4C 2828.6 cm???/min???m??? LV Diastolic Length 4C 7.6 cm LV Systolic Length 4C 6.8 cm LV Diastolic Volume MOD 2C 83.5 cm??? LV Systolic Volume MOD 2C 32.9 cm??? LV Ejection Fraction MOD 2C 60.6 % LV Cardiac Index MOD 2C 3409.0 cm???/min???m??? LV Diastolic Length 2C 7.6 cm LV Systolic Length 2C 6.0 cm LA Volume 42.6 cm??? 18 - 58 / 22 - 52 cm??? LA Volume Index 27.1 cm???/m??? 16 - 28 cm???/m??? DOPPLER AV Peak Velocity 189.3 cm/s AV Peak Gradient 14.3 mmHg AV Mean Velocity 125.8 cm/s AV Mean Gradient 7.1 mmHg AV Velocity Time Integral 33.0 cm LVOT Peak Velocity 123.0 cm/s LVOT Peak Gradient 6.1 mmHg LVOT Velocity Time Integral 22.3 cm LVOT Stroke Volume 56.1 cm??? LVOT Stroke Volume Index 36.0 ml/m??? LVOT Cardiac Index 3777.8 cm???/min???m??? AV Area Cont Eq vti 1.7 cm??? AV Area Cont Eq pk 1.6 cm??? MV Area PHT 5.7 cm??? Mitral E Point Velocity 93.5 cm/s Mitral A Point Velocity 81.2 cm/s Mitral E to A Ratio 1.2 MV Deceleration Time 132.6 ms TR Peak Velocity 260.4 cm/s TR Peak Gradient 27.1 mmHg Right Atrial Pressure 20.0 mmHg Pulmonary Artery Systolic Pressu 47.1 mmHg Right Ventricular Systolic Press 47.1 mmHg PV Peak Velocity 106.9 cm/s PV Peak Gradient 4.6 mmHg FINDINGS Left Ventricle Left ventricular ejection fraction is estimated at 55-60 %. Left ventricular cavity size normal. Left ventricular wall thickness normal. No obvious regional wall motion abnormalities. Right Ventricle Normal right ventricular size and function. Moderate pulmonary hypertension. Right Atrium Normal right atrial size. Left Atrium Normal left atrial size. Mitral Valve Structurally normal mitral valve. No evidence for mitral valve prolapse. No mitral stenosis. Trace mitral regurgitation. Aortic Valve Trileaflet aortic valve. No aortic valve stenosis or regurgitation. Tricuspid Valve Structurally normal tricuspid valve. No tricuspid stenosis. Trace to mild tricuspid regurgitation. Pulmonic Valve Pulmonic valve not well visualized. No pulmonic stenosis. No pulmonic regurgitation. Pericardium No pericardial effusion. Aorta Aortic annulus normal. CONCLUSIONS Normal LV size and systolic function. No significant abnormality on the Doppler exam. No pericardial effusion. Moderate pulmonary hypertension Previewed by: Dr. Alejandra Ni MD (Electronically Signed) Final Date: 06 March 2024 17:40
--- NOTE | 2024-03-06 17:47 | XR ---
EXAMINATION TYPE: XR chest 1V portable DATE OF EXAM: 03/06/2024 5:36 PM COMPARISON: Chest radiographs from 03/06/2024 TECHNIQUE: XR chest 1V portable Portable AP radiograph of the chest. CLINICAL INDICATION:Female, 63 years old with history of GOL; FINDINGS: Lungs/Pleura: Blunting of the right costal angle. No pneumothorax. Interstitial densities persist. Si milar patchy opacity in the right mid and lower lung. Pulmonary vascularity: Unremarkable. Heart/mediastinum: Cardiomediastinal silhouette is unremarkable. Musculoskeletal: No acute osseous pathology. Partial visualization of intramedullary nail fixation of the right humerus. Other findings: None Lines/Tubes: Endotracheal tube with distal tip 5.0 cm above the elba Nasogastric tube with its distal tip and side-port projecting under the diaphragm. Right internal jugular central venous catheter with distal tip at the mid SVC. IMPRESSION: 1. Similar trace right pleural effusion with right mid and lower lung patchy airspace opacities. 2. Stable support lines and tubes. [facility], , 03/06/2024 5:45 PM
[2024-03-06] MEDS: MORPHINE SULFATE (100 MG/2 ML) 100 MG in SODIUM CHLORIDE 0.9% 100 ML IV SCH (17:48)
[2024-03-06 17:50] LABS: Basophils % (A) 0 %; Eosinophils % (A) 1 %; HCT 31.8 % (34.0-46.0); HGB 10.3 gm/dL (11.4-16.0); Lymphocytes # (A) 0.6 k/uL (1.0-4.8); Lymphocytes % (A) 9 %; MCH 32.6 pg (25.0-35.0); MCHC 32.5 g/dL (31.0-37.0); MCV 100.4 fL (80.0-100.0); Mean Platelet Volume 9.6; Monocytes # (A) 0.3 k/uL (0-1.0); Monocytes % (A) 5 %; Neutrophils # (A) 5.5 k/uL (1.3-7.7); Neutrophils % (A) 85 %; Platelet Count 153 k/uL (150-450); RBC 3.17 m/uL (3.80-5.40); RDW 13.8 % (11.5-15.5); WBC 6.4 k/uL (3.8-10.6)
[2024-03-06 17:58] LABS: INR 0.8 (<1.2); Partial Thromboplastin Time 32.5 sec (22.0-30.0); Prothrombin Time 9.6 sec (10.0-12.5)
[2024-03-06 18:02] LABS: Appearance,Urine Cloudy (Clear); Bacteria,Urine Few /hpf; Bilirubin,Urine Negative (Negative); Blood,Urine Trace (Negative); Color,Urine Yellow; Glucose,Urine (UA) Negative (Negative); Ketones,Urine Negative (Negative); Leukocyte Esterase,Urine Large (Negative); Mucus,Urine Rare /hpf; Nitrite,Urine Negative (Negative); PH, Urine 8.5 (5.0-8.0); Protein,Urine 1+ (Negative); RBC,Urine 39 /hpf (0-5); WBC,Urine >182 /hpf (0-5)
[2024-03-06 18:08] LABS: ALT 43 U/L (4-34); AST 164 U/L (14-36); African American GFR (CKD) >90 (>60 ml/min/1.73 sqM); Albumin 2.8 g/dL (3.5-5.0); Alkaline Phosphatase 113 U/L (38-126); Anion Gap 3 mmol/L; Blood Urea Nitrogen 11 mg/dL (7-17); Calcium 7.9 mg/dL (8.4-10.2); Carbon Dioxide 28 mmol/L (22-30); Chloride 99 mmol/L (98-107); Glucose 109 mg/dL (74-99); Non-African American GFR(CKD) >90 (>60 ml/min/1.73 sqM); Phosphorus 2.8 mg/dL (2.5-4.5); Potassium 3.8 mmol/L (3.5-5.1); Sodium 130 mmol/L (137-145); Total Bilirubin 0.7 mg/dL (0.2-1.3)
[2024-03-06 18:32] LABS: Amylase 66 U/L (30-110); Creatine Kinase 379 U/L (30-135); Lipase 42 U/L (23-300)
[2024-03-06 18:42] LABS: NT-Pro-B-Type Natriuretic Pept 1310 pg/mL
[2024-03-06 23:35] LABS: Glucose,Whole Blood 124 mg/dL (70-110)
[2024-03-06] MEDS: PIPERACILLIN-TAZOBACTAM 3.375 GM in SODIUM CHLORIDE 0.9% 100 ML IVPB SCH (23:51)
[2024-03-06 23:57] LABS: ABG Base Excess 3.6 mmol/L; ABG HCO3 27 mmol/L (21-25); ABG Oxygen Saturation 94.9 % (94-97); ABG PCO2 34 mmHg (35-45); ABG PH 7.51 (7.35-7.45); ABG PO2 69 mmHg (83-108); ABG TCO2 28 mmol/L (19-24)
[2024-03-06 23:58] LABS: Allen Test Performed? no
[2024-03-07 00:14] LABS: Basophils % (A) 0 %; Eosinophils # (A) 0.1 k/uL (0-0.7); Eosinophils % (A) 1 %; HCT 30.1 % (34.0-46.0); Lymphocytes # (A) 0.7 k/uL (1.0-4.8); Lymphocytes % (A) 10 %; MCH 33.4 pg (25.0-35.0); MCHC 33.2 g/dL (31.0-37.0); MCV 100.4 fL (80.0-100.0); Mean Platelet Volume 8.6; Monocytes # (A) 0.4 k/uL (0-1.0); Monocytes % (A) 6 %; Neutrophils # (A) 5.7 k/uL (1.3-7.7); Neutrophils % (A) 82 %; Platelet Count 150 k/uL (150-450); RDW 13.7 % (11.5-15.5); WBC 6.9 k/uL (3.8-10.6)
[2024-03-07 00:29] LABS: ALT 38 U/L (4-34); AST 143 U/L (14-36); African American GFR (CKD) >90 (>60 ml/min/1.73 sqM); Albumin 2.6 g/dL (3.5-5.0); Alkaline Phosphatase 140 U/L (38-126); Anion Gap 3 mmol/L; Blood Urea Nitrogen 11 mg/dL (7-17); Calcium 7.9 mg/dL (8.4-10.2); Carbon Dioxide 26 mmol/L (22-30); Chloride 102 mmol/L (98-107); Glucose 120 mg/dL (74-99); Magnesium 1.8 mg/dL (1.6-2.3); Non-African American GFR(CKD) >90 (>60 ml/min/1.73 sqM); Phosphorus 2.6 mg/dL (2.5-4.5); Potassium 4.6 mmol/L (3.5-5.1); Sodium 131 mmol/L (137-145); Total Bilirubin 0.6 mg/dL (0.2-1.3); Total Protein 5.7 g/dL (6.3-8.2)
[2024-03-07 00:41] LABS: INR 0.9 (<1.2); Partial Thromboplastin Time 31.3 sec (22.0-30.0)
--- NOTE | 2024-03-07 04:36 | EEG ---
ELECTROENCEPHALOGRAM REPORT CLINICAL HISTORY: This is a 63-year-old woman with history of outside the hospital prolonged cardiopulmonary arrest, who had facial, eye twitching as well hand and feet twitching. The video EEG is obtained to evaluate for seizure epileptiform activity. RELEVANT MEDICATIONS: IV propofol, which was held prior to the EEG. The patient is also on, 1. IV Keppra. 2. Vimpat. EEG TYPE: This is a routine 21-channel EEG with video using the 10/20 electrode placement system. DESCRIPTION: The patient is intubated on a ventilator. The background consists of [id number]-[id number] voltage of 10.5 to 11.5 hertz activity. At times, there is diffuse excessive beta activity. There is no physiological stage 2 sleep architecture. There is no focal slowing. There is suppression noted over the right and left parietal region. In the beginning of the study, it appears the patient has sweat artifact over the right and left parietal region, but in the middle and end of the study appeared suppressed and no well- formed artifact noted. Interictal and ictal is none. ACTIVATION PROCEDURE: Photic stimulation did not evoke a posterior driving response. There is no abnormality during the photic stimulation. Hyperventilation is not performed. CLINICAL INTERPRETATION: This is an abnormal routine EEG. There is suppression noted over the bilateral parietal region. Otherwise, the background is normal. There is artifact noted also in the bilateral parietal region. There is no epileptiform discharges or seizure noted during the study. The suppression in the bilateral parietal is suggestive of cerebral dysfunction in the involved region. The current study is similar to the yesterday EEG on 03/05/2024. Clinical correlation is recommended. DEBBIE / FELIPEN: [id number] / MTDD
[2024-03-07 05:50] LABS: Glucose,Whole Blood 120 mg/dL (70-110)
[2024-03-07 05:53] LABS: ABG Base Excess 2.8 mmol/L; ABG HCO3 26 mmol/L (21-25); ABG Oxygen Saturation 94.2 % (94-97); ABG PCO2 35 mmHg (35-45); ABG PH 7.48 (7.35-7.45); ABG PO2 68 mmHg (83-108); ABG TCO2 27 mmol/L (19-24)
[2024-03-07 06:00] LABS: Allen Test Performed? no
[2024-03-07 06:16] LABS: HCT 28.4 % (34.0-46.0); HGB 9.2 gm/dL (11.4-16.0); MCH 32.8 pg (25.0-35.0); MCHC 32.4 g/dL (31.0-37.0); MCV 101.1 fL (80.0-100.0); Macrocytosis Slight; Mean Platelet Volume 8.4; Platelet Count 156 k/uL (150-450); RBC 2.81 m/uL (3.80-5.40); RDW 13.8 % (11.5-15.5); WBC 7.1 k/uL (3.8-10.6)
[2024-03-07 06:22] LABS: ALT 37 U/L (4-34); AST 128 U/L (14-36); African American GFR (CKD) >90 (>60 ml/min/1.73 sqM); Albumin 2.5 g/dL (3.5-5.0); Alkaline Phosphatase 153 U/L (38-126); Anion Gap 4 mmol/L; Blood Urea Nitrogen 10 mg/dL (7-17); Calcium 8.1 mg/dL (8.4-10.2); Carbon Dioxide 26 mmol/L (22-30); Chloride 105 mmol/L (98-107); Glucose 107 mg/dL (74-99); Magnesium 1.8 mg/dL (1.6-2.3); Non-African American GFR(CKD) 88 (>60 ml/min/1.73 sqM); Phosphorus 3.3 mg/dL (2.5-4.5); Potassium 4.3 mmol/L (3.5-5.1); Sodium 135 mmol/L (137-145); Total Bilirubin 0.8 mg/dL (0.2-1.3); Total Protein 5.6 g/dL (6.3-8.2)
[2024-03-07 06:26] LABS: INR 0.9 (<1.2); Partial Thromboplastin Time 30.4 sec (22.0-30.0); Prothrombin Time 10.1 sec (10.0-12.5)
[2024-03-07 06:27] LABS: Amorphous Sediment,Urine Rare /hpf; Appearance,Urine Clear (Clear); Bacteria,Urine Many /hpf; Bilirubin,Urine Negative (Negative); Blood,Urine Small (Negative); Color,Urine Colorless; Glucose,Urine (UA) Negative (Negative); Ketones,Urine Negative (Negative); Leukocyte Esterase,Urine Large (Negative); Nitrite,Urine Negative (Negative); PH, Urine 8.5 (5.0-8.0); Protein,Urine Negative (Negative); RBC,Urine 14 /hpf (0-5); Specific Gravity,Urine 1.008 (1.001-1.035); Urobilinogen,Urine <2.0 mg/dL (<2.0); WBC,Urine 16 /hpf (0-5)
[2024-03-07] MEDS: MAGNESIUM SULFATE-D5W PMX 1 GM in DEXTROSE/WATER 1 100ML.BAG IVPB ONE (06:28)
--- NOTE | 2024-03-07 08:37 | XR ---
EXAMINATION TYPE: XR chest 1V portable DATE OF EXAM: 03/07/2024 4:15 AM COMPARISON: 03/06/2024 CLINICAL INDICATION: Female, 63 years old with history of GOL, shortness of breath, FINDINGS: Patient is rotated towards the right ultrasound and normal cardiac and mediastinal contours. Heart up per limits of normal in size. Worsening focal air space opacity at the right base. Mild interstitial densities persist bilaterally. Right IJ CVC tip at the mid SVC. The patient's chin is now down and th e ET tube tip is located 1.1 cm from the elba. IMPRESSION: 1. ET tube tip located 1.1 cm from the elba with the patient's chin down. Pullback 1.5 cm and reass ess at follow-up. 2. Worsening airspace disease at the right base. [facility], , 03/07/2024 8:34 AM
[2024-03-07] MEDS: MORPHINE SULFATE 4 MG/ML SYRINGE IV PRN (09:26)
[2024-03-07 11:02] VITALS: TEMP 98.6
[2024-03-07 11:31] LABS: Glucose,Whole Blood 105 mg/dL (70-110)
--- NOTE | 2024-03-07 13:34 | P.PN ---
Subjective Progress Note Date: 03/07/24 Cardiac arrest. Progress Note Date: 03/04/24 Patient is a 63-year-old female with alcohol abuse and polysubstance abuse and was brought into the emergency department via EMS for cardiac arrest at 4 AM today.. Patient was intubated in the field and mechanically ventilated in our facility. Patient apparently lives in an apartment with 2 people and witnessed cardiac arrest. Patient was down for 20 minutes before EMS arrived. Patient was found to be in PEA was given 1 dose of epinephrine and intubated. They were able to achieve ROSC and gave 2 doses of epinephrine while in transit to our ED. Patient's mechanical ventilator settings on admission were assist-control with a rate of 20, tidal volume 400, FiO2 50 and a PEEP of 5. Patient was sedated and vasopressors were required for hemodynamic instability. Central line was also placed in the right internal jugular at our facility. Imaging on admission shows trace left pleural effusion, with endotracheal tube terminating at 4.7 cm above the elba, enteric feeding tube seen and in place, and right IJ catheter seen and in place. EKG done in the ED interpreted apparently shows sinus rhythm with occasional ectopic premature complexes. Brain CT done in the ED shows no acute intracranial defects or mass. Initial labs on admission were WBC 5.5, hemoglobin 9.8, hematocrit 33.3, MCV 111.5, platelet count 251, PT 11.8, INR 1.1, APTT 38.1,. Blood gas show pH of 7.06, pCO2 40, HCO3 11,. Sodium 140, potassium 4.3, chloride 109, bicarb 6, anion gap 25, BUN 18, creatinine 0.96, EGFR 63, glucose 157, lactic acid 13.2, calcium 8.2, AST 197, ALT 48, albumin 3.3, troponin less than 0.012. Currently in the ICU, patient is on propofol at 40mcg/kg/min and D5W 3A bicarb drip at 75ml//hr. Patient's mechanical ventilator settings on admission were assist-control with a rate of 20, tidal volume 400, FiO2 50 and a PEEP of 5. Repeat blood gases show pO2 194, pCO2 24, pH 7.33. Repeat chest x-ray today at 5 AM shows trace left pleural effusion with right lower lung linear scarring and/or atelectasis, and has no change from initial x-ray. On NPO. ERIKA balance +1 L with urine output 1.2 L. 03/04/2024 patient seen and examined at bedside. Patient's mechanical ventilator settings on admission were assist-control with a rate of 20, tidal volume 400, FiO2 35 and a PEEP of 5. Propofol running at 40 mics per kilogram per minute. Enteral feeding vital AF 1.2 running at a rate of 20 mL/h. ABG today showed PaO2 111, pCO2 35, pH 7.56. Labs today showed WBC 8.5, hemoglobin 10.9, platelet coun t 1 99,000, sodium 134, potassium 2.8, chloride 98, bicarb 28, BUN 15, creatinine 0.78, glucose 157, calcium 7. Chest x-ray today showed no significant interval change in mid bandlike atelectasis seen in the right middle or lower lobe. ET tube seen at 5.1 cm above the elba in place. EEG showed abnormal EEG the presence of a burst suppression pattern as described seen with severe anoxic encephalopathy. Progress note dated March 05, 2024. 63-year-old female who has a history of a [id number] cardiopulmonary arrest. She was resuscitated, and brought to the emergency department, and transferred to the intensive care unit. The patient remains on mechanical ventilation, with a volume assist-control mode, rate 20, tidal volume 400, FiO2 35%, PEEP of 5. Blood gases show a pO2 of 66, pCO2 of 35, the pH is 7.54. She is on propofol at 20 mcg/kg/min, saline at 75 cc an hour, and vital AF at goal which is 27 cc an hour. Repeat brain CT was negative. Neurology has been consulted. EEG showed diffuse slowing consistent with anoxic/metabolic encephalopathy. The patient did poorly with her daily interruption of sedation yesterday. Current labs include a white count 8.3, hemoglobin 9.7, hematocrit 29.4, platelet count 156,000. Sodium 131, potassium 3.3, chlorides 95, CO2 31, BUN 16, creatinine 0.76. Glucose 108. Calcium 6.7. Chest x-ray shows that the endotracheal tube is 3.5 cm above the elba. There is very small bilateral pleural effusions, and right middle lobe right lower lobe atelectasis. on 03/06/2024, the patient is being seen for a follow-up. This is a 63-year-old male patient sustained an out of hospital cardiac arrest with a prolonged downtime. The patient was in a PEA cardiac arrest. He has history of polysubstance abuse and alcoholism. He remains intubated on the mechanical ventilator. This morning, the patient assist-control mode of mechanical ventilation at rate of 20, tidal volume of 400, FiO2 of 35% with a PEEP of 5. The blood gases from today showed a pH of 7.5 with a pCO2 of 36 and pO2 of 73. This was done on FiO2 of 35%. The chest x-ray from today shows atelectatic changes in the right lower lobe area. ET tube is in a good location. The patient has an NG tube in place. No acute airspace disease or consolidation. Hardware is seen in the right upper extremity/shoulder area. The patient remains sedated on propofol which is running at 25 mcg/kg/min. The patient is also on normal saline at 75 cc an hour. He is receiving enteral feeding for nutritional support and is on vital AF at 27 cc/hr. In terms of his neurolog ical outcome postcardiac arrest, the EEG showed diffuse slowing on 03/05/2024. This was an abnormal EEG with mixed pattern consistent with suppression of brain waves in the bilateral parietal region and presence of diffuse fast frequency beta activity suggestive of generalized cerebral dysfunction consistent with anoxic encephalopathy. There was no evidence of any seizure-like activity. The patient's CAT scan of the brain was done on 03/04/2024 and 03/03/2024 consistent with no acute abnormalities. The echocardiogram has not been performed. The EKG at the time of admission was consistent with normal sinus rhythm without any acute ischemic changes and the cardiac enzymes x 1 troponin was negative. Labs from today shows a sodium level of 132, potassium of 3.2, BUN 13 with a creatinine of 0.6. The white cell count is 6.5 with a hemoglobin of 10 and a platelet count of 140. The patient is currently on Vimpat for seizure prophylaxis. He is also on Keppra. He is on Lovenox for DVT prophylaxis. He is also on NovoLog sliding scale coverage. No antibiotics. Afebrile. Hemodynamically stable on no pressors. Earlier this morning, the patient was given a sedation holiday. She remains completely unresponsive. Repeat EEG is to follow. Family is to arrive for further discussions regarding care. 03/07/2024, patient is being seen in follow-up in the intensive care unit. The patient has been off sedation for the past 24 hours. Remains deeply comatose and unresponsive. She occasionally grimaces to deep painful stimulation. No cough or gag reflex. Nevertheless, the patient is able to trigger the mechanical ventilator. This morning, the patient remains completely unrespon sive. She is on assist-control mode with rate of 20, tidal volume of 400, FiO2 of 50% with a PEEP of 5. Blood gas showed a pH of 7.48 with a pCO2 of 35 and pO2 of 68. The follow-up chest x-ray from this morning shows some airspace disease in the right lung base and the patient is currently on IV Zosyn. Hemodynamically stable and the patient is on no pressors. The white cell count is 7.1 with a hemoglobin 9.2 and a platelet count of 156. Sodium is at 135, potassium is 4.3, BUN is at 10 with a creatinine of 0.7. Mild transaminitis is noted with an AST of 128 and an ALT of 37 and alkaline phosphatase of 153. No seizure activity has been noted. Follow-up EEG from yesterday showed no seizure activity and the patient remains on a combination of Keppra and Vimpat. The patient is on Lovenox for DVT prophylaxis. The patient is currently off enteral feeding. [facility] has been involved in the patient's family has accepted organ donation. The patient will be taken to the operating room for extubation possible organ harvesting at around 1500 today. Objective - Vital Signs Vital signs: Vital Signs Temp 98.2 F 03/07/24 08:00 Pulse 94 03/07/24 09:00 Resp 20 03/07/24 09:00 BP 111/62 03/07/24 03:00 Pulse Ox 95 03/07/24 09:00 FiO2 35 03/07/24 09:00 Intake & Output 03/06/24 03/07/24 03/07/24 18:59 06:59 18:59 Intake Total 4117.657 4111 234 Output Total 487 1615 360 Balance 1128.383 49 -126 Weight 56.4 kg 54.1 kg Intake: IV 1041 1036 234 Magnesium Sulfate-D5w Pmx 100 1 gm In Dextrose/Water 1 100ml.bag @ 100 mls/hr IVPB Q1H [facility] Rx#: [id number] Sodium Chloride 0.9% 1, 655 750 225 000 ml @ 75 mls/hr IV . [id number] [facility] Rx#:[id number] Sodium Chloride 0.9% 500 250 250 ml 500 ml @ 999 mls/hr IV .[id number] [facility] Rx#:[id number] pressure bag 36 36 9 Intake, IV Titration 112.383 250 Amount Magnesium Sulfate-D5w Pmx 100 1 gm In Dextrose/Water 1 100ml.bag @ 100 mls/hr IVPB Q1H [facility] Rx#: [id number] Piperacillin-Tazobactam 3 100 .375 gm In Sodium Chloride 0.9% 100 ml @ 25 mls/hr IVPB Q8HR [facility] Rx# :[id number] Sodium Chloride 0.9% 1, 150 000 ml @ 75 mls/hr IV . [id number] [facility] Rx#:[id number] propofoL 1,000 mg In 12.383 Empty Bag 1 bag @ 15 MCG/ KG/MIN 5.307 mls/hr IV . [id number] [facility] Rx#:[id number] Tube Feeding 372 198 0 Other 90 180 Output: Urine 487 1615 360 Other: Voiding Method Indwelling Catheter Indwelling Catheter Indwelling Catheter ABP, PAP, CO, CI - Last Documented Arterial Blood Pressure 166/67 - Exam No acute distress, off propofol, with an orally placed endotracheal tube, and NG tube. The patient is breathing above the mechanical ventilator. She is initiating her own breaths. The patient remains deeply comatose, unresponsive and no significant change in neurologic functions over the past 24 hours. HEENT examination is grossly unremarkable. Unequal pupils was noted. No c orneal. No gag reflex. Neck supple. Full range of motion. No adenopathy thyromegaly or neck vein distention. Cardiovascular examination reveals regular rhythm rate. S1-S2 normal. No S3 or S4. No discernible murmur noted. Heart sounds are distant. Lungs reveal mostly clear breath sounds. Mild bilateral rhonchi. No wheezes or crackles. Breath sounds are equal bilaterally. Abdomen soft with bowel sounds. No masses or tenderness. Extremities are intact. No cyanosis clubbing or edema. Skin is without rash or lesion. Neurologic examination is difficult to evaluate at this time. The pupils are round 4mm on the right and 5 mm in size, sluggishly reactive to light, oculocephalics are present, corneal reflexes absent, no coughing or gagging. No twitching or any jerky body movements. Motor and sensory function cannot be clearly obtained. - Labs CBC & Chem 7: 03/07/24 05:50 03/07/24 05:50 Labs: Abnormal Lab Results - Last 24 Hours (Table) 03/03/24 03/06/24 03/06/24 Range/Units 05:07 11:05 12:52 RBC (3.80-5.40) m/uL Hgb (11.4-16.0) gm/dL Hct (34.0-46.0) % MCV (80.0-100.0) fL Lymphocytes # (1.0-4.8) k/uL PT (10.0-12.5) sec APTT (22.0-30.0) sec Fibrinogen (200-500) mg/dL D-Dimer (<0.60) mg/L FEU ABG pH (7.35-7.45) ABG pCO2 (35-45) mmHg ABG pO2 (83-108) mmHg ABG HCO3 (21-25) mmol/L ABG Total CO2 (19-24) mmol/L Hemoglobin (11.4-16.0) gm/dL Sodium (137-145) mmol/L Potassium 3.3 L (3.5-5.1) mmol/L Glucose (74-99) mg/dL POC Glucose (mg/dL) 125 H (70-110) mg/dL Calcium (8.4-10.2) mg/dL Magnesium 2.4 H (1.6-2.3) mg/dL AST (14-36) U/L ALT (4-34) U/L Alkaline Phosphatase (38-126) U/L Creatine Kinase (30-135) U/L Total Protein (6.3-8.2) g/dL Albumin (3.5-5.0) g/dL RBC Folate 853 H (280 - 791) ng/mL Urine Appearance (Clear) Urine pH (5.0-8.0) Urine Protein (Negative) Urine Blood (Negative) Ur Leukocyte Esterase (Negative) Urine RBC (0-5) /hpf Urine WBC (0-5) /hpf Urine WBC Clumps (None) /hpf Amorphous Sediment (None) /hpf Urine Bacteria (None) /hpf Urine Mucus (None) /hpf 03/06/24 03/06/24 03/06/24 Range/Units 17:05 17:25 17:30 RBC 3.17 L (3.80-5.40) m/uL Hgb 10.3 L (11.4-16.0) gm/dL Hct 31.8 L (34.0-46.0) % MCV 100.4 H (80.0-100.0) fL Lymphocytes # 0.6 L (1.0-4.8) k/uL PT (10.0-12.5) sec APTT (22.0-30.0) sec Fibrinogen (200-500) mg/dL D-Dimer (<0.60) mg/L FEU ABG pH 7.49 H (7.35-7.45) ABG pCO2 (35-45) mmHg ABG pO2 68 L (83-108) mmHg ABG HCO3 28 H (21-25) mmol/L ABG Total CO2 29 H (19-24) mmol/L Hemoglobin 10.1 L (11.4-16.0) gm/dL Sodium (137-145) mmol/L Potassium (3.5-5.1) mmol/L Glucose (74-99) mg/dL POC Glucose (mg/dL) (70-110) mg/dL Calcium (8.4-10.2) mg/dL Magnesium (1.6-2.3) mg/dL AST (14-36) U/L ALT (4-34) U/L Alkaline Phosphatase (38-126) U/L Creatine Kinase (30-135) U/L Total Protein (6.3-8.2) g/dL Albumin (3.5-5.0) g/dL RBC Folate (280 - 791) ng/mL Urine Appearance Cloudy H (Clear) Urine pH 8.5 H (5.0-8.0) Urine Protein 1+ H (Negative) Urine Blood Trace H (Negative) Ur Leukocyte Esterase Large H (Negative) Urine RBC 39 H (0-5) /hpf Urine WBC >182 H (0-5) /hpf Urine WBC Clumps Occasional H (None) /hpf Amorphous Sediment (None) /hpf Urine Bacteria Few H (None) /hpf Urine Mucus Rare H (None) /hpf 03/06/24 03/06/24 03/06/24 Range/Units 17:30 17:30 17:30 RBC (3.80-5.40) m/uL Hgb (11.4-16.0) gm/dL Hct (34.0-46.0) % MCV (80.0-100.0) fL Lymphocytes # (1.0-4.8) k/uL PT 9.6 L (10.0-12.5) sec APTT 32.5 H (22.0-30.0) sec Fibrinogen 659 H (200-500) mg/dL D-Dimer 2.01 H (<0.60) mg/L FEU ABG pH (7.35-7.45) ABG pCO2 (35-45) mmHg ABG pO2 (83-108) mmHg ABG HCO3 (21-25) mmol/L ABG Total CO2 (19-24) mmol/L Hemoglobin (11.4-16.0) gm/dL Sodium 130 L (137-145) mmol/L Potassium (3.5-5.1) mmol/L Glucose 109 H (74-99) mg/dL POC Glucose (mg/dL) (70-110) mg/dL Calcium 7.9 L (8.4-10.2) mg/dL Magnesium (1.6-2.3) mg/dL AST 164 H (14-36) U/L ALT 43 H (4-34) U/L Alkaline Phosphatase (38-126) U/L Creatine Kinase (30-135) U/L Total Protein 6.0 L (6.3-8.2) g/dL Albumin 2.8 L (3.5-5.0) g/dL RBC Folate (280 - 791) ng/mL Urine Appearance (Clear) Urine pH (5.0-8.0) Urine Protein (Negative) Urine Blood (Negative) Ur Leukocyte Esterase (Negative) Urine RBC (0-5) /hpf Urine WBC (0-5) /hpf Urine WBC Clumps (None) /hpf Amorphous Sediment (None) /hpf Urine Bacteria (None) /hpf Urine Mucus (None) /hpf 03/06/24 03/06/24 03/06/24 Range/Units 17:30 17:35 23:33 RBC (3.80-5.40) m/uL Hgb (11.4-16.0) gm/dL Hct (34.0-46.0) % MCV (80.0-100.0) fL Lymphocytes # (1.0-4.8) k/uL PT (10.0-12.5) sec APTT (22.0-30.0) sec Fibrinogen (200-500) mg/dL D-Dimer (<0.60) mg/L FEU ABG pH (7.35-7.45) ABG pCO2 (35-45) mmHg ABG pO2 (83-108) mmHg ABG HCO3 (21-25) mmol/L ABG Total CO2 (19-24) mmol/L Hemoglobin (11.4-16.0) gm/dL Sodium (137-145) mmol/L Potassium (3.5-5.1) mmol/L Glucose (74-99) mg/dL POC Glucose (mg/dL) 119 H 124 H (70-110) mg/dL Calcium (8.4-10.2) mg/dL Magnesium (1.6-2.3) mg/dL AST (14-36) U/L ALT (4-34) U/L Alkaline Phosphatase (38-126) U/L Creatine Kinase 379 H (30-135) U/L Total Protein (6.3-8.2) g/dL Albumin (3.5-5.0) g/dL RBC Folate (280 - 791) ng/mL Urine Appearance (Clear) Urine pH (5.0-8.0) Urine Protein (Negative) Urine Blood (Negative) Ur Leukocyte Esterase (Negative) Urine RBC (0-5) /hpf Urine WBC (0-5) /hpf Urine WBC Clumps (None) /hpf Amorphous Sediment (None) /hpf Urine Bacteria (None) /hpf Urine Mucus (None) /hpf 03/06/24 03/07/24 03/07/24 Range/Units 23:55 00:00 00:00 RBC 3.00 L (3.80-5.40) m/uL Hgb 10.0 L (11.4-16.0) gm/dL Hct 30.1 L (34.0-46.0) % MCV 100.4 H (80.0-100.0) fL Lymphocytes # 0.7 L (1.0-4.8) k/uL PT (10.0-12.5) sec APTT 31.3 H (22.0-30.0) sec Fibrinogen (200-500) mg/dL D-Dimer (<0.60) mg/L FEU ABG pH 7.51 H (7.35-7.45) ABG pCO2 34 L (35-45) mmHg ABG pO2 69 L (83-108) mmHg ABG HCO3 27 H (21-25) mmol/L ABG Total CO2 28 H (19-24) mmol/L Hemoglobin 9.5 L (11.4-16.0) gm/dL Sodium (137-145) mmol/L Potassium (3.5-5.1) mmol/L Glucose (74-99) mg/dL POC Glucose (mg/dL) (70-110) mg/dL Calcium (8.4-10.2) mg/dL Magnesium (1.6-2.3) mg/dL AST (14-36) U/L ALT (4-34) U/L Alkaline Phosphatase (38-126) U/L Creatine Kinase (30-135) U/L Total Protein (6.3-8.2) g/dL Albumin (3.5-5.0) g/dL RBC Folate (280 - 791) ng/mL Urine Appearance (Clear) Urine pH (5.0-8.0) Urine Protein (Negative) Urine Blood (Negative) Ur Leukocyte Esterase (Negative) Urine RBC (0-5) /hpf Urine WBC (0-5) /hpf Urine WBC Clumps (None) /hpf Amorphous Sediment (None) /hpf Urine Bacteria (None) /hpf Urine Mucus (None) /hpf 03/07/24 03/07/24 03/07/24 Range/Units 00:00 05:49 05:50 RBC 2.81 L (3.80-5.40) m/uL Hgb 9.2 L (11.4-16.0) gm/dL Hct 28.4 L (34.0-46.0) % MCV 101.1 H (80.0-100.0) fL Lymphocytes # (1.0-4.8) k/uL PT (10.0-12.5) sec APTT (22.0-30.0) sec Fibrinogen (200-500) mg/dL D-Dimer (<0.60) mg/L FEU ABG pH (7.35-7.45) ABG pCO2 (35-45) mmHg ABG pO2 (83-108) mmHg ABG HCO3 (21-25) mmol/L ABG Total CO2 (19-24) mmol/L Hemoglobin (11.4-16.0) gm/dL Sodium 131 L (137-145) mmol/L Potassium (3.5-5.1) mmol/L Glucose 120 H (74-99) mg/dL POC Glucose (mg/dL) 120 H (70-110) mg/dL Calcium 7.9 L (8.4-10.2) mg/dL Magnesium (1.6-2.3) mg/dL AST 143 H (14-36) U/L ALT 38 H (4-34) U/L Alkaline Phosphatase 140 H (38-126) U/L Creatine Kinase (30-135) U/L Total Protein 5.7 L (6.3-8.2) g/dL Albumin 2.6 L (3.5-5.0) g/dL RBC Folate (280 - 791) ng/mL Urine Appearance (Clear) Urine pH (5.0-8.0) Urine Protein (Negative) Urine Blood (Negative) Ur Leukocyte Esterase (Negative) Urine RBC (0-5) /hpf Urine WBC (0-5) /hpf Urine WBC Clumps (None) /hpf Amorphous Sediment (None) /hpf Urine Bacteria (None) /hpf Urine Mucus (None) /hpf 03/07/24 03/07/24 03/07/24 Range/Units 05:50 05:50 05:50 RBC (3.80-5.40) m/uL Hgb (11.4-16.0) gm/dL Hct (34.0-46.0) % MCV (80.0-100.0) fL Lymphocytes # (1.0-4.8) k/uL PT (10.0-12.5) sec APTT 30.4 H (22.0-30.0) sec Fibrinogen (200-500) mg/dL D-Dimer (<0.60) mg/L FEU ABG pH (7.35-7.45) ABG pCO2 (35-45) mmHg ABG pO2 (83-108) mmHg ABG HCO3 (21-25) mmol/L ABG Total CO2 (19-24) mmol/L Hemoglobin (11.4-16.0) gm/dL Sodium 135 L (137-145) mmol/L Potassium (3.5-5.1) mmol/L Glucose 107 H (74-99) mg/dL POC Glucose (mg/dL) (70-110) mg/dL Calcium 8.1 L (8.4-10.2) mg/dL Magnesium (1.6-2.3) mg/dL AST 128 H (14-36) U/L ALT 37 H (4-34) U/L Alkaline Phosphatase 153 H (38-126) U/L Creatine Kinase (30-135) U/L Total Protein 5.6 L (6.3-8.2) g/dL Albumin 2.5 L (3.5-5.0) g/dL RBC Folate (280 - 791) ng/mL Urine Appearance (Clear) Urine pH 8.5 H (5.0-8.0) Urine Protein (Negative) Urine Blood Small H (Negative) Ur Leukocyte Esterase Large H (Negative) Urine RBC 14 H (0-5) /hpf Urine WBC 16 H (0-5) /hpf Urine WBC Clumps (None) /hpf Amorphous Sediment Rare H (None) /hpf Urine Bacteria Many H (None) /hpf Urine Mucus (None) /hpf 03/07/24 Range/Units 05:53 RBC (3.80-5.40) m/uL Hgb (11.4-16.0) gm/dL Hct (34.0-46.0) % MCV (80.0-100.0) fL Lymphocytes # (1.0-4.8) k/uL PT (10.0-12.5) sec APTT (22.0-30.0) sec Fibrinogen (200-500) mg/dL D-Dimer (<0.60) mg/L FEU ABG pH 7.48 H (7.35-7.45) ABG pCO2 (35-45) mmHg ABG pO2 68 L (83-108) mmHg ABG HCO3 26 H (21-25) mmol/L ABG Total CO2 27 H (19-24) mmol/L Hemoglobin 9.4 L (11.4-16.0) gm/dL Sodium (137-145) mmol/L Potassium (3.5-5.1) mmol/L Glucose (74-99) mg/dL POC Glucose (mg/dL) (70-110) mg/dL Calcium (8.4-10.2) mg/dL Magnesium (1.6-2.3) mg/dL AST (14-36) U/L ALT (4-34) U/L Alkaline Phosphatase (38-126) U/L Creatine Kinase (30-135) U/L Total Protein (6.3-8.2) g/dL Albumin (3.5-5.0) g/dL RBC Folate (280 - 791) ng/mL Urine Appearance (Clear) Urine pH (5.0-8.0) Urine Protein (Negative) Urine Blood (Negative) Ur Leukocyte Esterase (Negative) Urine RBC (0-5) /hpf Urine WBC (0-5) /hpf Urine WBC Clumps (None) /hpf Amorphous Sediment (None) /hpf Urine Bacteria (None) /hpf Urine Mucus (None) /hpf Assessment and Plan Plan: [id number], cardiopulmonary arrest, with prolonged resuscitative phase. The patient had a witnessed out of hospital cardiac arrest with a prolonged downtime of 35 minutes per EMS. Acute hypoxic respiratory failure postcardiac arrest and the patient is S/P intubation and ventilation, for respiratory failure on 03/03/2024 right lower lobe pulmonary infiltrate, consider hospital-acquired pneumonia the patient is currently on IV Zosyn. The patient is afebrile and hemodynamically stable. anoxic brain injury, please refer to the EEG of the brain. The patient had an acute alcohol intoxication at time of admission and his EEG is consistent with severe anoxic encephalopathy and the patient is receiving a combination of Vi mpat and Keppra for seizures. Most recent EEG from 03/05/2024 showed no evidence of any seizure activity. Sedation holiday was given this morning. The patient remains unresponsive.Most recent EEG from 03/06/2024 shows suppression over the bilateral parietal region. Otherwise, the background is normal. No epileptic discharges noted. There is evidence of cerebral dysfunction and the EEG findings are essentially similar to the one that was done on 03/05/2024. History of chronic alcohol abuse and alcohol intoxication. Anion gap metabolic acidosis, secondary to lactic acidemia, resolved. Lactic acidosis, recovered Chronic anemia History of smoking Alcohol-related transaminitis. Plan: Continue vent support. No changes for today Obtain echocardiogram was completed and the patient has a normal LV function without any valvular dysfunction Obtain follow-up EEG from 03/06/2024 showed no seizure activity Kept on IV fluids to 40 cc an hour Enteral feeding has been kept on hold Continue Keppra and Vimpat Lovenox 40 mg subcu for DVT prophylaxis Neurology follow-up Family is aware of the poor prognosis. [facility] is involved and the patient is being considered for organ harvesting at a later stage today. Will collaborate care with a [employer]. Evaluation was done more than 30 minutes in this acute care evaluation. Time with Patient: Greater than 30
--- NOTE | 2024-03-07 14:05 | P.PN ---
Subjective Progress Note Date: 03/07/24 Hospital Course: Patient is a 63-year-old female apparently with alcohol abuse and polysubstance abuse is brought to the emergency department via EMS for cardiac arrest. Patient is mechanically ventilated so history is obtained from the ER note as well as by talking to Dr. Munoz. Apparently patient lives in an apartment with 2 people who called police after she was unresponsive for about 20 minutes before the EMS arrived. Patient was found to be in PEA and was given 1 dose of epinephrine and was intubated. They were able to achieve ROSC. Patient received an additional 2 doses of epinephrine while in transit to ED. Patient is currently mechanically ventilated on control assist with settings of respiratory rate of 20, tidal volume 400, FiO2 50 and PEEP of 5. Patient is currently on propofol drip and vasopressors. Initial laboratory evaluation WBC 5.5, hemoglobin 9.8, hematocrit 33.3, MCV 111.5, platelet count 251, PT 11.8, INR 1.1, APTT 38.1,. Blood gas show pH of 7.06, pCO2 40, HCO3 11,. Sodium 140, potassium 4.3, chloride 109, bicarb 6, anion gap 25, BUN 18, creatinine 0.96, EGFR 63, glucose 157, lactic acid 13.2, calcium 8.2, AST 197, ALT 48, albumin 3.3, troponin less than 0.012. Vitals on arrival with a heart rate of 91, respiratory rate 20, blood pressure 61/40, oxygen 100% saturation with mechanical isolation. Urinalysis negative. Urine toxicology is negative Serum alcohol 351 Chest x-ray done in ED interpreted independently shows small left pleural effusion Brain CT done in the ED shows no acute intracranial defects or mass. EKG done in the ED interpreted apparently shows sinus rhythm with occasional ectopic premature complexes Subjective: Patient seen and examined at bedside. Currently sedated on mechanical ventilation. Patient to undergo organ donation later this evening. Pertinent positives and negatives as discussed above, a complete review of systems was performed and all other systems are negative. Vitals: Signs Reviewed Physical Exam: General: sedated, mechanical respirator Derm: warm, dry, intact Head: atraumatic, normocephalic, symmetric Eyes: EOMI, anicteric sclera Mouth: no lip lesion, mucus membranes moist Cardiovascular: S1 S2 reg, no murmur, rubs, or gallops Lungs: CTA bilateral, no rhonchi, no rales, no accessory muscle use Abdominal: soft, non-tender to palpataion, no appreciable organomegaly Extremities: no gross muscle atrophy, no edema, no contractures Neuro: Alert, Oriented, CNII-XII grossly intact, gait normal Psych: well appearing, appropriate affect Assessment/Plan: This is a 63-year-old female with a history of alcohol abuse and polysubstance abuse who is brought to the ER for out of hospital cardiac arrest. #Cardiac arrest outside hospital #Anoxic Brain Injury #Neurogenic Fevers #Alcohol intoxication # Anoxic encephalopathy Patient is currently intubated and mechanically supported on control assist with settings of respiratory rate of 20, tidal volume 400, FiO2 35 and PEEP of 5. Maintain a MAP of more than equal to 65 Chest x-ray done in ED interpreted independently shows small left pleural effusion Brain CT done in the ER shows no acute intracranial defects or mass. EKG done in the ER interpreted apparently shows sinus rhythm with occasional ectopic premature complexes Strict I's and O's Order IV thiamine 100 mg IVP daily Placed on CIWA protocol, Ativan as per protocol Neurochecks and seizure precautions Continue with home gabapentin Neurology has been consulted, started on keppra and Vimpat EEG 03/03/2024 was abnormal due to presence of burst suppressed pattern, with bursts consisting of high amplitude dysrhythmic sharp and some slow waves lasting for 1 second followed by periods of suppression lasting for 6-8 seconds. This pattern can be seen with severe anoxic encephalopathy. Goals of care to be discussed with family regarding comfort care. EEG 03/05/2524 suggestive of generalized cerebral dysfunction as can be seen with toxic metabolic cephalopathy or related to underlying structural abnormality, no epileptiform activity Patient on comfort care. Patient did undergo organ donation later this evening. #Anion gap metabolic acidosis with superimposed metabolic alkalosis secondary to lactic acidosis and alcoholic ketoacidosis, resolved # Hypovolemic shock, resolved Blood gas show pH of 7.06, pCO2 40, HCO3 11 Sodium 140, potassium 4.3, chloride 109, bicarb 6, anion gap 25 Lactic acid 13.2 Patient is status post 2 sodium bicarb infusions in the ED Continue with bicarb drip running at 75 cc/h Repeat ABG in a.m. Recheck lactic acid in a.m. #Hyperglycemia Accu-Cheks and sliding scale insulin Order HbA1c #Alcohol associated transaminitis AST 197, ALT 48 Continue monitor CMP CMP in a.m. #Macrocytic anemia likely in the setting of alcohol abuse Unknown Hb baseline Hemoglobin 9.8, MCV heart 11.5, Check vitamin B12 and RBC folate Iron profile ordered #. Hypokalemia Replace per protocol DVT prophylaxis: Lovenox 40 mg subcu daily GI prophylaxis: IV Protonix 40 mg once daily F: IV normal saline at 75 cc/h E: Replete as needed N: NPO A: Ambulatory at baseline at home DVT ppx: Lovenox 40 SQ daily Code status: Full code Anticipated discharge place: Pending clinical course Anticipated discharge time: Pending clinical course Prognosis is poor. Dictation was produced using [employer] dictation software. please excuse any grammatical, word or spelling errors. I saw and evaluated the patient during the aguirre and critical portions of this encounter, and discussed the case in detail with the resident author of this note, I agree with the Assessment and Plan, and my changes, if any, are highlighted in blue. Objective - Vital Signs Vital signs: Vital Signs Temp 98.6 F 03/07/24 11:00 Pulse 94 03/07/24 11:50 Resp 20 03/07/24 11:28 BP 111/62 03/07/24 11:00 Pulse Ox 94 L 03/07/24 11:00 FiO2 35 03/07/24 11:33 Intake & Output 03/06/24 03/07/24 03/07/24 18:59 06:59 18:59 Intake Total 1060.025 9004 390 Output Total 487 1615 650 Balance 1128.383 49 -260 Weight 56.4 kg 54.1 kg Intake: IV 1041 1036 390 Magnesium Sulfate-D5w Pmx 100 1 gm In Dextrose/Water 1 100ml.bag @ 100 mls/hr IVPB Q1H [facility] Rx#: [id number] Sodium Chloride 0.9% 1, 655 750 375 000 ml @ 75 mls/hr IV . [id number] [facility] Rx#:[id number] Sodium Chloride 0.9% 500 250 250 ml 500 ml @ 999 mls/hr IV .Q31M [facility] Rx#:[id number] pressure bag 36 36 15 Intake, IV Titration 112.383 250 Amount Magnesium Sulfate-D5w Pmx 100 1 gm In Dextrose/Water 1 100ml.bag @ 100 mls/hr IVPB Q1H [facility] Rx#: [id number] Piperacillin-Tazobactam 3 100 .375 gm In Sodium Chloride 0.9% 100 ml @ 25 mls/hr IVPB Q8HR [facility] Rx# :[id number] Sodium Chloride 0.9% 1, 150 000 ml @ 75 mls/hr IV . [id number] [facility] Rx#:[id number] propofoL 1,000 mg In 12.383 Empty Bag 1 bag @ 15 MCG/ KG/MIN 5.307 mls/hr IV . [id number] [facility] Rx#:[id number] Tube Feeding 372 198 0 Other 90 180 Output: Urine 487 1615 650 Other: Voiding Method Indwelling Catheter Indwelling Catheter Indwelling Catheter ABP, PAP, CO, CI - Last Documented Arterial Blood Pressure 136/60 - Labs CBC & Chem 7: 03/07/24 05:50 03/07/24 05:50 Labs: Abnormal Lab Results - Last 24 Hours (Table) 03/03/24 03/06/24 03/06/24 Range/Units 05:07 17:05 17:25 RBC (3.80-5.40) m/uL Hgb (11.4-16.0) gm/dL Hct (34.0-46.0) % MCV (80.0-100.0) fL Lymphocytes # (1.0-4.8) k/uL PT (10.0-12.5) sec APTT (22.0-30.0) sec Fibrinogen (200-500) mg/dL D-Dimer (<0.60) mg/L FEU ABG pH 7.49 H (7.35-7.45) ABG pCO2 (35-45) mmHg ABG pO2 68 L (83-108) mmHg ABG HCO3 28 H (21-25) mmol/L ABG Total CO2 29 H (19-24) mmol/L Hemoglobin 10.1 L (11.4-16.0) gm/dL Sodium (137-145) mmol/L Glucose (74-99) mg/dL POC Glucose (mg/dL) (70-110) mg/dL Calcium (8.4-10.2) mg/dL AST (14-36) U/L ALT (4-34) U/L Alkaline Phosphatase (38-126) U/L Creatine Kinase (30-135) U/L Total Protein (6.3-8.2) g/dL Albumin (3.5-5.0) g/dL RBC Folate 853 H (280 - 791) ng/mL Urine Appearance Cloudy H (Clear) Urine pH 8.5 H (5.0-8.0) Urine Protein 1+ H (Negative) Urine Blood Trace H (Negative) Ur Leukocyte Esterase Large H (Negative) Urine RBC 39 H (0-5) /hpf Urine WBC >182 H (0-5) /hpf Urine WBC Clumps Occasional H (None) /hpf Amorphous Sediment (None) /hpf Urine Bacteria Few H (None) /hpf Urine Mucus Rare H (None) /hpf 03/06/24 03/06/24 03/06/24 Range/Units 17:30 17:30 17:30 RBC 3.17 L (3.80-5.40) m/uL Hgb 10.3 L (11.4-16.0) gm/dL Hct 31.8 L (34.0-46.0) % MCV 100.4 H (80.0-100.0) fL Lymphocytes # 0.6 L (1.0-4.8) k/uL PT 9.6 L (10.0-12.5) sec APTT 32.5 H (22.0-30.0) sec Fibrinogen (200-500) mg/dL D-Dimer (<0.60) mg/L FEU ABG pH (7.35-7.45) ABG pCO2 (35-45) mmHg ABG pO2 (83-108) mmHg ABG HCO3 (21-25) mmol/L ABG Total CO2 (19-24) mmol/L Hemoglobin (11.4-16.0) gm/dL Sodium 130 L (137-145) mmol/L Glucose 109 H (74-99) mg/dL POC Glucose (mg/dL) (70-110) mg/dL Calcium 7.9 L (8.4-10.2) mg/dL AST 164 H (14-36) U/L ALT 43 H (4-34) U/L Alkaline Phosphatase (38-126) U/L Creatine Kinase (30-135) U/L Total Protein 6.0 L (6.3-8.2) g/dL Albumin 2.8 L (3.5-5.0) g/dL RBC Folate (280 - 791) ng/mL Urine Appearance (Clear) Urine pH (5.0-8.0) Urine Protein (Negative) Urine Blood (Negative) Ur Leukocyte Esterase (Negative) Urine RBC (0-5) /hpf Urine WBC (0-5) /hpf Urine WBC Clumps (None) /hpf Amorphous Sediment (None) /hpf Urine Bacteria (None) /hpf Urine Mucus (None) /hpf 03/06/24 03/06/24 03/06/24 Range/Units 17:30 17:30 17:35 RBC (3.80-5.40) m/uL Hgb (11.4-16.0) gm/dL Hct (34.0-46.0) % MCV (80.0-100.0) fL Lymphocytes # (1.0-4.8) k/uL PT (10.0-12.5) sec APTT (22.0-30.0) sec Fibrinogen 659 H (200-500) mg/dL D-Dimer 2.01 H (<0.60) mg/L FEU ABG pH (7.35-7.45) ABG pCO2 (35-45) mmHg ABG pO2 (83-108) mmHg ABG HCO3 (21-25) mmol/L ABG Total CO2 (19-24) mmol/L Hemoglobin (11.4-16.0) gm/dL Sodium (137-145) mmol/L Glucose (74-99) mg/dL POC Glucose (mg/dL) 119 H (70-110) mg/dL Calcium (8.4-10.2) mg/dL AST (14-36) U/L ALT (4-34) U/L Alkaline Phosphatase (38-126) U/L Creatine Kinase 379 H (30-135) U/L Total Protein (6.3-8.2) g/dL Albumin (3.5-5.0) g/dL RBC Folate (280 - 791) ng/mL Urine Appearance (Clear) Urine pH (5.0-8.0) Urine Protein (Negative) Urine Blood (Negative) Ur Leukocyte Esterase (Negative) Urine RBC (0-5) /hpf Urine WBC (0-5) /hpf Urine WBC Clumps (None) /hpf Amorphous Sediment (None) /hpf Urine Bacteria (None) /hpf Urine Mucus (None) /hpf 03/06/24 03/06/24 03/07/24 Range/Units 23:33 23:55 00:00 RBC 3.00 L (3.80-5.40) m/uL Hgb 10.0 L (11.4-16.0) gm/dL Hct 30.1 L (34.0-46.0) % MCV 100.4 H (80.0-100.0) fL Lymphocytes # 0.7 L (1.0-4.8) k/uL PT (10.0-12.5) sec APTT (22.0-30.0) sec Fibrinogen (200-500) mg/dL D-Dimer (<0.60) mg/L FEU ABG pH 7.51 H (7.35-7.45) ABG pCO2 34 L (35-45) mmHg ABG pO2 69 L (83-108) mmHg ABG HCO3 27 H (21-25) mmol/L ABG Total CO2 28 H (19-24) mmol/L Hemoglobin 9.5 L (11.4-16.0) gm/dL Sodium (137-145) mmol/L Glucose (74-99) mg/dL POC Glucose (mg/dL) 124 H (70-110) mg/dL Calcium (8.4-10.2) mg/dL AST (14-36) U/L ALT (4-34) U/L Alkaline Phosphatase (38-126) U/L Creatine Kinase (30-135) U/L Total Protein (6.3-8.2) g/dL Albumin (3.5-5.0) g/dL RBC Folate (280 - 791) ng/mL Urine Appearance (Clear) Urine pH (5.0-8.0) Urine Protein (Negative) Urine Blood (Negative) Ur Leukocyte Esterase (Negative) Urine RBC (0-5) /hpf Urine WBC (0-5) /hpf Urine WBC Clumps (None) /hpf Amorphous Sediment (None) /hpf Urine Bacteria (None) /hpf Urine Mucus (None) /hpf 03/07/24 03/07/24 03/07/24 Range/Units 00:00 00:00 05:49 RBC (3.80-5.40) m/uL Hgb (11.4-16.0) gm/dL Hct (34.0-46.0) % MCV (80.0-100.0) fL Lymphocytes # (1.0-4.8) k/uL PT (10.0-12.5) sec APTT 31.3 H (22.0-30.0) sec Fibrinogen (200-500) mg/dL D-Dimer (<0.60) mg/L FEU ABG pH (7.35-7.45) ABG pCO2 (35-45) mmHg ABG pO2 (83-108) mmHg ABG HCO3 (21-25) mmol/L ABG Total CO2 (19-24) mmol/L Hemoglobin (11.4-16.0) gm/dL Sodium 131 L (137-145) mmol/L Glucose 120 H (74-99) mg/dL POC Glucose (mg/dL) 120 H (70-110) mg/dL Calcium 7.9 L (8.4-10.2) mg/dL AST 143 H (14-36) U/L ALT 38 H (4-34) U/L Alkaline Phosphatase 140 H (38-126) U/L Creatine Kinase (30-135) U/L Total Protein 5.7 L (6.3-8.2) g/dL Albumin 2.6 L (3.5-5.0) g/dL RBC Folate (280 - 791) ng/mL Urine Appearance (Clear) Urine pH (5.0-8.0) Urine Protein (Negative) Urine Blood (Negative) Ur Leukocyte Esterase (Negative) Urine RBC (0-5) /hpf Urine WBC (0-5) /hpf Urine WBC Clumps (None) /hpf Amorphous Sediment (None) /hpf Urine Bacteria (None) /hpf Urine Mucus (None) /hpf 03/07/24 03/07/24 03/07/24 Range/Units 05:50 05:50 05:50 RBC 2.81 L (3.80-5.40) m/uL Hgb 9.2 L (11.4-16.0) gm/dL Hct 28.4 L (34.0-46.0) % MCV 101.1 H (80.0-100.0) fL Lymphocytes # (1.0-4.8) k/uL PT (10.0-12.5) sec APTT 30.4 H (22.0-30.0) sec Fibrinogen (200-500) mg/dL D-Dimer (<0.60) mg/L FEU ABG pH (7.35-7.45) ABG pCO2 (35-45) mmHg ABG pO2 (83-108) mmHg ABG HCO3 (21-25) mmol/L ABG Total CO2 (19-24) mmol/L Hemoglobin (11.4-16.0) gm/dL Sodium 135 L (137-145) mmol/L Glucose 107 H (74-99) mg/dL POC Glucose (mg/dL) (70-110) mg/dL Calcium 8.1 L (8.4-10.2) mg/dL AST 128 H (14-36) U/L ALT 37 H (4-34) U/L Alkaline Phosphatase 153 H (38-126) U/L Creatine Kinase (30-135) U/L Total Protein 5.6 L (6.3-8.2) g/dL Albumin 2.5 L (3.5-5.0) g/dL RBC Folate (280 - 791) ng/mL Urine Appearance (Clear) Urine pH (5.0-8.0) Urine Protein (Negative) Urine Blood (Negative) Ur Leukocyte Esterase (Negative) Urine RBC (0-5) /hpf Urine WBC (0-5) /hpf Urine WBC Clumps (None) /hpf Amorphous Sediment (None) /hpf Urine Bacteria (None) /hpf Urine Mucus (None) /hpf 03/07/24 03/07/24 Range/Units 05:50 05:53 RBC (3.80-5.40) m/uL Hgb (11.4-16.0) gm/dL Hct (34.0-46.0) % MCV (80.0-100.0) fL Lymphocytes # (1.0-4.8) k/uL PT (10.0-12.5) sec APTT (22.0-30.0) sec Fibrinogen (200-500) mg/dL D-Dimer (<0.60) mg/L FEU ABG pH 7.48 H (7.35-7.45) ABG pCO2 (35-45) mmHg ABG pO2 68 L (83-108) mmHg ABG HCO3 26 H (21-25) mmol/L ABG Total CO2 27 H (19-24) mmol/L Hemoglobin 9.4 L (11.4-16.0) gm/dL Sodium (137-145) mmol/L Glucose (74-99) mg/dL POC Glucose (mg/dL) (70-110) mg/dL Calcium (8.4-10.2) mg/dL AST (14-36) U/L ALT (4-34) U/L Alkaline Phosphatase (38-126) U/L Creatine Kinase (30-135) U/L Total Protein (6.3-8.2) g/dL Albumin (3.5-5.0) g/dL RBC Folate (280 - 791) ng/mL Urine Appearance (Clear) Urine pH 8.5 H (5.0-8.0) Urine Protein (Negative) Urine Blood Small H (Negative) Ur Leukocyte Esterase Large H (Negative) Urine RBC 14 H (0-5) /hpf Urine WBC 16 H (0-5) /hpf Urine WBC Clumps (None) /hpf Amorphous Sediment Rare H (None) /hpf Urine Bacteria Many H (None) /hpf Urine Mucus (None) /hpf
[2024-03-07 14:13] LABS: ABG Base Excess 0.5 mmol/L; ABG HCO3 25 mmol/L (21-25); ABG Oxygen Saturation 95.6 % (94-97); ABG PCO2 40 mmHg (35-45); ABG PH 7.41 (7.35-7.45); ABG PO2 80 mmHg (83-108); ABG TCO2 26 mmol/L (19-24)
[2024-03-07 14:47] LABS: HCT 29.5 % (34.0-46.0); HGB 9.3 gm/dL (11.4-16.0); Hypochromasia Slight; MCH 32.3 pg (25.0-35.0); MCHC 31.6 g/dL (31.0-37.0); MCV 102.1 fL (80.0-100.0); Macrocytosis Slight; Mean Platelet Volume 8.8; Platelet Count 179 k/uL (150-450); RBC 2.89 m/uL (3.80-5.40); RDW 13.8 % (11.5-15.5); WBC 7.9 k/uL (3.8-10.6)
[2024-03-07 14:58] LABS: ALT 37 U/L (4-34); AST 126 U/L (14-36); African American GFR (CKD) >90 (>60 ml/min/1.73 sqM); Albumin 2.6 g/dL (3.5-5.0); Alkaline Phosphatase 148 U/L (38-126); Anion Gap 4 mmol/L; Blood Urea Nitrogen 8 mg/dL (7-17); Calcium 8.2 mg/dL (8.4-10.2); Carbon Dioxide 25 mmol/L (22-30); Chloride 106 mmol/L (98-107); Glucose 101 mg/dL (74-99); Magnesium 1.8 mg/dL (1.6-2.3); Non-African American GFR(CKD) 87 (>60 ml/min/1.73 sqM); Phosphorus 4.5 mg/dL (2.5-4.5); Potassium 4.4 mmol/L (3.5-5.1); Sodium 135 mmol/L (137-145); Total Bilirubin 0.8 mg/dL (0.2-1.3); Total Protein 5.7 g/dL (6.3-8.2)
[2024-03-07 15:02] LABS: INR 0.9 (<1.2); Partial Thromboplastin Time 35.1 sec (22.0-30.0); Prothrombin Time 10.1 sec (10.0-12.5)
[2024-03-07] MEDS: LORazepam 2 MG/ML INJ IV PRN (19:31)
[2024-03-07 20:24] VITALS: BP 38/23
[2024-03-07 21:43] VITALS: PULSE 0; RESP 0
--- NOTE | 2024-03-08 08:20 | P.DS ---
Providers Date of admission: 03/03/24 02:59 Patient . Time of pronounced on 03/07/2024 at 9:30 PM. Discharge Diagnosis: Cardiac arrest outside hospital Anoxic brain injury Neurogenic fevers Alcohol intoxication Anion gap metabolic acidosis with superimposed metabolic alkalosis secondary to lactic acidosis and alcoholic ketoacidosis Hypovolemic shock Hyperglycemia Alcohol associated transaminitis Microcytic anemia likely in the setting of alcohol abuse Hypokalemia Hospital Course: Patient is a 63-year-old female apparently with alcohol abuse and polysubstance abuse is brought to the emergency department via EMS for cardiac arrest. Patient is mechanically ventilated so history is obtained from the ER note as well as by talking to Dr. Munoz. Apparently patient lives in an apartment with 2 people who called police after she was unresponsive for about 20 minutes before the EMS arrived. Patient was found to be in PEA and was given 1 dose of epinephrine and was intubated. They were able to achieve ROSC. Patient received an additional 2 doses of epinephrine while in transit to ED. Patient is currently mechanically ventilated on control assist with settings of respiratory rate of 20, tidal volume 400, FiO2 50 and PEEP of 5. Patient is currently on propofol drip and vasopressors. Initial laboratory evaluation WBC 5.5, hemoglobin 9.8, hematocrit 33.3, MCV 111.5, platelet count 251, PT 11.8, INR 1.1, APTT 38.1,. Blood gas show pH of 7.06, pCO2 40, HCO3 11,. Sodium 140, potassium 4.3, chloride 109, bicarb 6, anion gap 25, BUN 18, creatinine 0.96, EGFR 63, glucose 157, lactic acid 13.2, calcium 8.2, AST 197, ALT 48, albumin 3.3, troponin less than 0.012. Vitals on arrival with a heart rate of 91, respiratory rate 20, blood pressure 61/40, oxygen 100% saturation with mechanical isolation. Urinalysis negative. Urine toxicology is negative Serum alcohol 351 Chest x-ray done in ED interpreted independently shows small left pleural effusion Brain CT done in the ED shows no acute intracranial defects or mass. EKG done in the ED interpreted apparently shows sinus rhythm with occasional ectopic premature complexes Patient was admitted to the ICU due to hypovolemic shock. Pulmonology and neurology were consulted. While in ICU patient was mechanically intubated and sedated. She was placed on pressors for her hypotension but eventually was weaned off from them. EEG 03/03/2024 was abnormal due to presence of burst suppressed pattern, with bursts consisting of high amplitude dysrhythmic sharp and some slow waves lasting for 1 second followed by periods of suppression lasting for 6-8 seconds. This pattern can be seen with severe anoxic encephalopathy. Goals of care to be discussed with family regarding comfort care. EEG 03/05/2524 suggestive of generalized cerebral dysfunction as can be seen with toxic metabolic cephalopathy or related to underlying structural abnormality, no epileptiform activity. Goals of care were discussed with family. Family ultimately decided on comfort care. [facility] was involved as well. The family accepted organ donation. Patient was taken to operating room for extubation and possible organ donation. Patient did not within a 90-minute timeframe, so organ donation was unsuccessful. Patient . Time of pronounced on 03/07/2024 at 9:30 PM. Jose Chan MD PGY-1 IM Dictation was produced using [employer] dictation software. please excuse any grammatical, word or spelling errors. I saw and evaluated the patient during the aguirre and critical portions of this encounter, and discussed the case in detail with the resident author of this note, I agree with the Assessment and Plan, and my changes, if any, are highlighted in blue. Expected date of discharge: 03/07/24 Attending physician: Piero Vizcarra MD Consults: 03/03/24 02:59 Consult Physician Stat Consulting Provider: Adonay Juarez Consult Reason/Comments: cardiac arrest, alcohol intoxcation Do you want consulting provider notified?: Yes 03/03/24 08:59 Consult Physician Routine Consulting Provider: Viktor Rivas Consult Reason/Comments: r/o anoxic brain injury Do you want consulting provider notified?: Yes Primary care physician: Stated None Plan - Discharge Summary Discharge Rx Participant: No New Discharge Prescriptions: No Action Cyclobenzaprine [Flexeril] 10 mg PO DAILY Gabapentin [Neurontin] 300 mg PO TID Discharge Medication List Cyclobenzaprine [Flexeril] 10 mg PO DAILY 02/04/21 [History] Gabapentin [Neurontin] 300 mg PO TID 02/04/21 [History] Follow up Appointment(s)/Referral(s): None,Stated [Primary Care Provider] - 1-2 days Discharge Disposition: - Preliminary Cause of Preliminary Cause of : anoxic brain injury, alcoholism
== END 2024-03-07 23:55 | disposition expired | DRG 196 ==
LOC: EC 01:15 → 2SICU 02:59
PROVIDERS: ADMIT Internal Medicine; ATTEND Internal Medicine
PROC: 3E043XZ Introduction of Vasopressor into Central Vein, Percutaneous Approach (ICD-10-PCS; principal; 2024-03-03)
PROC: 02HV33Z Insertion of Infusion Device into Superior Vena Cava, Percutaneous Approach (ICD-10-PCS; principal; 2024-03-03)
PROC: 02HV33Z Insertion of Infusion Device into Superior Vena Cava, Percutaneous Approach (ICD-10-PCS; 2024-03-03)
PROC: B5181ZA Fluoroscopy of Superior Vena Cava using Low Osmolar Contrast, Guidance (ICD-10-PCS; 2024-03-03)
PROC: 03HY32Z Insertion of Monitoring Device into Upper Artery, Percutaneous Approach (ICD-10-PCS; 2024-03-03)
PROC: 4A133B1 Monitoring of Arterial Pressure, Peripheral, Percutaneous Approach (ICD-10-PCS; 2024-03-03)
PROC: 4A133J1 Monitoring of Arterial Pulse, Peripheral, Percutaneous Approach (ICD-10-PCS; 2024-03-03)
PROC: B548ZZA Ultrasonography of Superior Vena Cava, Guidance (ICD-10-PCS; 2024-03-03)
PROC: 5A1945Z Respiratory Ventilation, 24-96 Consecutive Hours (ICD-10-PCS; 2024-03-03)
PROC: 0BH17EZ Insertion of Endotracheal Airway into Trachea, Via Natural or Artificial Opening (ICD-10-PCS; 2024-03-03)
PROC: 4A00X4Z Measurement of Central Nervous Electrical Activity, External Approach (ICD-10-PCS; 2024-03-03)
PROC: 4A00X4Z Measurement of Central Nervous Electrical Activity, External Approach (ICD-10-PCS; 2024-03-05)
PROC: 4A00X4Z Measurement of Central Nervous Electrical Activity, External Approach (ICD-10-PCS; 2024-03-06)
DX: I46.9 Cardiac arrest, cause unspecified (principal); F10.229 Alcohol dependence with intoxication, unspecified; E87.4 Mixed disorder of acid-base balance; G93.1 Anoxic brain damage, not elsewhere classified; E87.6 Hypokalemia; J96.00 Acute respiratory failure, unspecified whether with hypoxia or hypercapnia; J98.11 Atelectasis; K74.60 Unspecified cirrhosis of liver; R57.1 Hypovolemic shock; G93.41 Metabolic encephalopathy; D53.9 Nutritional anemia, unspecified; D50.9 Iron deficiency anemia, unspecified; D75.89 Other specified diseases of blood and blood-forming organs; R45.851 Suicidal ideations; Z51.5 Encounter for palliative care; W06.XXXA Fall from bed, initial encounter; M06.9 Rheumatoid arthritis, unspecified; Z79.899 Other long term (current) drug therapy; Z66 Do not resuscitate; E87.29 Other acidosis; I08.1 Rheumatic disorders of both mitral and tricuspid valves
CPT/HCPCS: 36415; 36556; 36600; 70450; 71045; 80048; 80053; 80306; 80320; 81001; 81003; 82140; 82150; 82550; 82607; 82747; 82805; 83605; 83690; 83735; 83880; 84100; 84132; 84443; 84450; 84460; 84484; 85025; 85027; 85379; 85384; 85610; 85730; 86850; 86900; 86901; 87635; 93005; 93306; 94002; 94003; 94640; 95822; 96365; 96366; 96375; 99285